=== PATIENT | male | born 1960 | race Caucasian/White ===

== ENCOUNTER 2016-09-14 14:56 | Inpatient (IN) | payer MEDICARE, MEDICAID ==
[2016-09-14] MEDS ORDERED: LORazepam INJ* 2 MG/ML 1 ML VIAL IV ONE (19:08)
[2016-09-14] MEDS ORDERED: Magnesium Sulfate 1 GM IV* 1 GM/100 ML BAG IV ONE (19:10)
[2016-09-14] MEDS ORDERED: Thiamine IV* 100 MG, Folic Acid IV* 1 MG, Multiple Vitamin IV ADULT* 10 ML in NS 0.9% 1... IV ONE (19:10)
[2016-09-14] MEDS ORDERED: Folic Acid IV* 50 MG/10 ML VIAL ONE (19:21)
[2016-09-14] MEDS ORDERED: Thiamine IV* 100 MG/ML 2 ML VIAL ONE (19:21)
[2016-09-14] MEDS ORDERED: NS 0.9% 1000 ML* 1,000 ML ONE (19:21)
[2016-09-14 19:30] LABS: Hematocrit 45 % (42-52); Hemoglobin 15.3 g/dl (14.0-18.0); Mean Corpuscular HGB Conc 34 g/dl (31-36); Mean Corpuscular Hemoglobin 32 pg (27-31); Mean Corpuscular Volume 95 fL (80-94); Mean Platelet Volume 8 um3 (7.4-10.4); Red Blood Count 4.76 10^6/ul (4.0-5.4); Red Cell Distribution Width 15 % (10.5-15); White Blood Count 13.8 10^3/ul (3.5-10.8)
[2016-09-14 19:54] LABS: ALT 25 U/L (7-52); AST 44 U/L (13-39); Acetaminophen < 15 mcg/mL; Albumin 4.5 g/dL (3.2-5.2); Alcohol 120 mg/dL (<10); Alkaline Phosphatase 98 U/L (34-104); Anion Gap 20 mmol/L (2-11); BUN/Creatinine Ratio 14.1 (8-20); Blood Urea Nitrogen 12 mg/dL (6-24); CO2 Carbon Dioxide 17 mmol/L (22-32); Calcium 10.4 mg/dL (8.6-10.3); Chloride 91 mmol/L (101-111); Creatine Kinase 171 U/L (10-223); EGFR African American 120.4 (>60); EGFR Non-African American 93.6 (>60); Glucose 130 mg/dL (70-100); Potassium 3.6 mmol/L (3.5-5.0); Salicylate < 2.50 mg/dL (<30); Sodium 128 mmol/L (133-145); Total Protein 8.5 g/dL (6.4-8.9)
[2016-09-14] MEDS ORDERED: Albuterol 2.5 MG/3 ML NEB.SOL* (0.083%) INH PRN (20:15)
[2016-09-14] MEDS ORDERED: Melatonin (NF) 3 MG TAB PO PRN (20:15)
[2016-09-14] MEDS ORDERED: Ondansetron INJ* 2 MG/ML VIAL IV PRN (20:16)
[2016-09-14] MEDS ORDERED: Acetaminophen TAB* 325 MG PO PRN (20:17)
[2016-09-14] MEDS ORDERED: Thiamine IV* 100 MG/ML 2 ML VIAL IM ONE (20:17)
--- NOTE | 2016-09-14 20:36 | HP ---
H&P (Free Text) History and Physical: PCP: NANNETTE Mart MD Date/Time of Evaluation: 09/14/20161999 CC: alcohol withdrawal HPI: Mr Epps is a 55YO male HX alcoholism who presents reporting visual hallucinations, tremors, and malaise after decreasing his alcohol consumption over the last 24hours. He relates episodic relapses characterized by 2-3 months of sobriety followed by relapsing marijuana use and when he runs out of marijuana he starts drinking. He has been consuming ~1 pint of vodka daily for the past 2 months. He denies HX withdrawal seizures, but has had hallucinations and tremors previously. No chest pain, SOB, change in bowel/bladder or other issues. PMedHx polysubstance abuse alcoholism Ambulatory Orders Thiamine TAB* [Vitamin B-1 TAB 100 MG*] 100 mg PO DAILY #100 tab 03/31/16 chlordiazePOXIDE CAP* [Librium CAP*] 25 mg PO BID #3 cap MDD 2 03/31/16 Allergies Penicillins Allergy (Intermediate, Verified 02/29/16 11:32) Rash SocHx: mild episodic tobacco use, 1 pint vodka daily, daily marijuana, denies other recreational drugs, denies HX injectable drugs; , lives alone; currently unemployed; full code status FamHx: Father: alcoholism ROS: as above, otherwise reviewed and all were negative Constitutional: NAD, normally developed, well-nourished white male vitals: Vital Signs Temp 36.8 C 09/14/16 21:24 Pulse 96 09/14/16 21:24 Resp 18 09/14/16 22:32 BP 149/67 09/14/16 21:24 Pulse Ox 98 09/14/16 21:24 Intake & Output 09/13/16 09/14/16 09/14/16 23:59 11:59 23:59 Intake Total 600 Balance 600 Weight 81.647 kg Intake: IV Fluids 600 HEENM: atraumatic; sclera/conjunctiva: non-icteric/clear; hearing: clinically intact; oropharynx: clear, mucosa moist Neck: soft tissue: non-tender; thyroid: normal Pulmonary: clear to auscultation bilaterally, good aeration, no accessory muscle use CV: RR/RR, normal S1S2, no carotid bruit, no jugular venous distention, 2+ B DP/ PT, no edema Abdominal: soft, non-distended, non-tender, no rebound/guarding/rigidity, normoactive bowel sounds, no hepatosplenomegaly or masses, no costovertebral angle tenderness Musculoskeletal: general: grossly intact; gait: stable Integumental: normal appearance and texture of exposed skin, purple nail armenian on hands/feet Psychiatric orientation: AA&O to PPS affect: calm mood: pleasant eye contact: good content: reliable responses: timely insight: fair to good Testing: Lab Results 09/14/16 09/14/16 Range/Units 17:45 17:45 WBC 13.8 H (3.5-10.8) 10^3/ul RBC 4.76 (4.0-5.4) 10^6/ul Hgb 15.3 (14.0-18.0) g/dl Hct 45 (42-52) % MCV 95 H (80-94) fL MCH 32 H (27-31) pg MCHC 34 (31-36) g/dl RDW 15 (10.5-15) % Plt Count 264 (150-450) 10^3/ul MPV 8 (7.4-10.4) um3 Neut % (Auto) 61.9 (38-83) % Lymph % (Auto) 28.2 (25-47) % [place] % (Auto) 9.2 H (1-9) % Eos % (Auto) 0.2 (0-6) % Baso % (Auto) 0.5 (0-2) % Absolute Neuts (auto) 8.5 H (1.5-7.7) 10^3/ul Absolute Lymphs (auto) 3.9 (1.0-4.8) 10^3/ul Absolute Monos (auto) 1.3 H (0-0.8) 10^3/ul Absolute Eos (auto) 0 (0-0.6) 10^3/ul Absolute Basos (auto) 0.1 (0-0.2) 10^3/ul Absolute Nucleated RBC 0.01 10^3/ul Nucleated RBC % 0.1 Sodium 128 L (133-145) mmol/L Potassium 3.6 (3.5-5.0) mmol/L Chloride 91 L (101-111) mmol/L Carbon Dioxide 17 L (22-32) mmol/L Anion Gap 20 H (2-11) mmol/L BUN 12 (6-24) mg/dL Creatinine 0.85 (0.67-1.17) mg/dL Est GFR ( Amer) 120.4 (>60) Est GFR (Non-Af Amer) 93.6 (>60) BUN/Creatinine Ratio 14.1 (8-20) Glucose 130 H (70-100) mg/dL Calcium 10.4 H (8.6-10.3) mg/dL Total Bilirubin 1.20 H (0.2-1.0) mg/dL AST 44 H (13-39) U/L ALT 25 (7-52) U/L Alkaline Phosphatase 98 (34-104) U/L Total Creatine Kinase 171 (10-223) U/L Total Protein 8.5 (6.4-8.9) g/dL Albumin 4.5 (3.2-5.2) g/dL Globulin 4.0 (2-4) g/dL Albumin/Globulin Ratio 1.1 (1-3) TSH 1.00 (0.34-5.60) mcIU/mL Salicylates < 2.50 (<30) mg/dL Acetaminophen < 15 mcg/mL Serum Alcohol 120 H (<10) mg/dL Impression: 55M presenting with alcohol withdrawal DIAGNOSIS & PLAN Primary alcohol withdrawal : [facility] protocol : social work case manager consult Admission Rational: inpatient for alcohol withdrawal not anticipated to be adequately resolved w/i 48h to allow for discharge DVTp: MILAG[place] Code Status: full
[2016-09-14] MEDS: Docusate CAP* 100 MG PO SCH (22:31)
[2016-09-14] MEDS: LORazepam TAB(*) 1 MG PO SCH (22:32)
[2016-09-14] MEDS: NS 0.9% 1000 ML* 1,000 ML IV SCH (22:32)
--- NOTE | 2016-09-14 22:44 | ED ---
Nicole Lafleur Alok, scribed for Nabeel Singh MD on 09/14/16 at 1937 . Substance Abuse/Use - HPI Summary HPI Summary: 55M presents to the ED for alcohol detoxification. Pt reports drinking a quart of vodka per day until 2 or 3 months ago. Pt reports heavy shakes, diaphoresis, abd pain, and slight hallucinations. Pt has been drinking mouthwash to alleviate symptoms last had 2 days ago. Pt has not eaten for the last several days. Pt smokes marijuana. Pt states he smoked tobacco only while he was drinking ETOH. - History Of Current Complaint Chief Complaint: EDDetoxRequest Stated Complaint: ETOH WITHDRAWL,DISORIENTED Time Seen by Provider: 09/14/16 17:22 Hx Obtained From: Patient Severity Initially: Moderate Severity Currently: Moderate Character: Other - ETOH withdrawl Associated Signs And Symptoms: Other: - body tremors, diaphoresis, abd pain, slight hallucinations - Allergies/Home Medications Allergies/Adverse Reactions: Allergies Allergy/AdvReac Type Severity Reaction Status Date / Time Penicillins Allergy Intermediate Rash Verified 02/29/16 11:32 PMH/Surg Hx/FS Hx/Imm Hx Endocrine/Hematology History: Denies: Hx Anticoagulant Therapy GI History: Reports: Other GI Disorders - Lower inguinal hernia Musculoskeletal History: Reports: Hx Back Problems - ruptured disc Denies: Hx Rheumatoid Arthritis, Hx Osteoporosis Sensory History: Reports: Hx Contacts or Glasses Opthamlomology History: Reports: Hx Contacts or Glasses Neurological History: Reports: Hx Migraine, Hx Spinal Cord Injury, Other Neuro Impairments/Disorders - Sciatica Psychiatric History: Reports: Hx Anxiety, Hx Depression, Hx Inpatient Treatment - [facility], Hx [facility], Hx of Violent Episodes Against Others , Hx Substance Abuse - alcoholism Denies: Hx Attention Deficit Hyperactivity Disorder, Hx Eating Disorder, Hx Panic Disorder, Hx Post Traumatic Stress Disorder, Hx Schizophrenia, Hx Bipolar Disorder, Hx Suicide Attempt, Other Psychiatric Issues/Disorders - Surgical History Surgery Procedure, Year, and Place: Tonsillectomy, dental Hx Anesthesia Reactions: No - Immunization History Date of Tetanus Vaccine: Unk Date of Influenza Vaccine: None Infectious Disease History: Denies: History Other Infectious Disease, Traveled Outside the [place] in Last 30 Days - Family History Known Family History: Negative: Cardiac Disease, Hypertension, Diabetes - Social History Occupation: Disabled Alcohol Use: Daily Alcohol Amount: Quart of Vodka/day Hx Substance Use: Yes Substance Use Type: Reports: Marijuana Substance Use Comment - Amount & Last Used: Morning of 03/29 few gulps of isopropyl alcohol Hx Tobacco Use: Yes Smoking Status (MU): Former Smoker Type: Cigarettes Have You Smoked in the Last Year: Yes Review of Systems Positive: Skin Diaphoresis. Negative: Fever Positive: Abdominal Pain Positive: Other - body tremors Neurological: Other - slight hallucinations All Other Systems Reviewed And Are Negative: Yes Physical Exam Triage Information Reviewed: Yes Vital Signs On Initial Exam: Initial Vitals Temp Pulse Resp BP Pulse Ox 99.8 F 111 18 158/97 97 09/14/16 15:07 09/14/16 15:07 09/14/16 15:07 09/14/16 15:07 09/14/16 15:07 Vital Signs Reviewed: Yes Appearance: Positive: Well-Appearing - Tremulous, No Pain Distress Skin: Positive: Warm, Skin Color Reflects Adequate Perfusion, Dry Head/Face: Positive: Normal Head/Face Inspection Eyes: Positive: Normal ENT: Positive: Normal ENT inspection Neck: Positive: Supple, Nontender Respiratory/Lung Sounds: Positive: Clear to Auscultation, Breath Sounds Present Cardiovascular: Positive: Tachycardia Abdomen Description: Positive: Nontender, Soft Bowel Sounds: Positive: Present Musculoskeletal: Positive: Normal Neurological: Positive: Normal Psychiatric: Positive: Normal, Affect/Mood Appropriate - [place] Coma Scale Coma Scale Total: 15 Diagnostics - Vital Signs Vital Signs Temp Pulse Resp BP Pulse Ox 09/14/16 17:05 98.3 F 112 20 150/94 96 09/14/16 16:15 98.3 F 114 20 156/89 98 09/14/16 15:07 99.8 F 111 18 158/97 97 - Laboratory Lab Results: Lab Results 09/14/16 Range/Units 17:45 WBC 13.8 H (3.5-10.8) 10^3/ul RBC 4.76 (4.0-5.4) 10^6/ul Hgb 15.3 (14.0-18.0) g/dl Hct 45 (42-52) % MCV 95 H (80-94) fL MCH 32 H (27-31) pg MCHC 34 (31-36) g/dl RDW 15 (10.5-15) % Plt Count 264 (150-450) 10^3/ul MPV 8 (7.4-10.4) um3 Neut % (Auto) 61.9 (38-83) % Lymph % (Auto) 28.2 (25-47) % [place] % (Auto) 9.2 H (1-9) % Eos % (Auto) 0.2 (0-6) % Baso % (Auto) 0.5 (0-2) % Absolute Neuts (auto) 8.5 H (1.5-7.7) 10^3/ul Absolute Lymphs (auto) 3.9 (1.0-4.8) 10^3/ul Absolute Monos (auto) 1.3 H (0-0.8) 10^3/ul Absolute Eos (auto) 0 (0-0.6) 10^3/ul Absolute Basos (auto) 0.1 (0-0.2) 10^3/ul Absolute Nucleated RBC 0.01 10^3/ul Nucleated RBC % 0.1 Result Diagrams: 09/14/16 17:45 09/14/16 17:45 Lab Statement: Any lab studies that have been ordered have been reviewed, and results considered in the medical decision making process. Course/Dx - Diagnoses Provider Diagnoses: Alcohol withdrawal - Physician Notifications Discussed Care Of Patient With: Dr. Jones (Hospitalist) @ 1954 - will examine pt. Dr. Jones (Hospitalist) @ 120 - will admit pt Discharge - Discharge Plan Condition: Stable Disposition: ADMITTED TO [facility] documentation as recorded by the Nicole linn Alok accurately reflects the service I personally performed and the decisions made by , Nabeel Singh MD.
[2016-09-15] MEDS: Omeprazole CAP* 20 MG PO SCH (05:23)
[2016-09-15] MEDS: LORazepam TAB(*) 1 MG PO SCH ×3 (05:23→17:19)
[2016-09-15 07:07] LABS: Hematocrit 40 % (42-52); Hemoglobin 13.6 g/dl (14.0-18.0); Mean Corpuscular HGB Conc 34 g/dl (31-36); Mean Corpuscular Hemoglobin 32 pg (27-31); Mean Corpuscular Volume 96 fL (80-94); Mean Platelet Volume 8 um3 (7.4-10.4); Red Blood Count 4.22 10^6/ul (4.0-5.4); Red Cell Distribution Width 15 % (10.5-15)
[2016-09-15 07:27] LABS: BUN/Creatinine Ratio 15.5 (8-20); Calcium 8.6 mg/dL (8.6-10.3); EGFR African American 148.1 (>60); EGFR Non-African American 115.2 (>60); Potassium 3.6 mmol/L (3.5-5.0)
[2016-09-15] MEDS: NS 0.9% 1000 ML* 1,000 ML IV SCH (07:45)
[2016-09-15] MEDS: Docusate CAP* 100 MG PO SCH ×2 (09:12→20:22)
[2016-09-15] MEDS: Thiamine TAB* 100 MG TAB PO SCH (09:12)
[2016-09-15] MEDS: Folic Acid TAB* 1 MG PO SCH (09:12)
[2016-09-15] MEDS: Multivitamins/Minerals TAB PO SCH (09:12)
[2016-09-15] MEDS ORDERED: Ascorbic Acid TAB* 500 MG PO ONE (11:15)
[2016-09-15] MEDS ORDERED: Cholecalciferol TAB* 400 UNIT PO SCH (12:30)
[2016-09-15] MEDS: LORazepam INJ* 2 MG/ML 1 ML VIAL IV SCH ×2 (14:05→20:21)
[2016-09-15 15:07] LABS: Benzodiazepine Urine Screen None Detected (None Detect)
--- NOTE | 2016-09-15 18:10 | PN ---
Subjective Date of Service: 09/15/16 Interval History: . denies new c/o feels tremulous - -unsteady on feet Family History: Unchanged from Admission Social History: Unchanged from Admission Past Medical History: Unchanged from Admission Objective Active Medications: . Acetaminophen (Tylenol Tab*) 650 mg PO Q4H PRN PRN Reason: PAIN Albuterol (Ventolin 2.5 Mg/3 Ml Neb.Kourtney*) 2.5 mg INH Q2H PRN PRN Reason: SOB/WHEEZING Ascorbic Acid (Vitamin C Tab*) 500 mg PO DAILY [facility] Cholecalciferol (Vitamin D Tab*) 400 unit PO DAILY [facility] Docusate Sodium (Colace Cap*) 200 mg PO BID [facility] Last Admin: 09/15/16 09:12 Dose: Not Given Folic Acid (Folvite Tab*) 1 mg PO DAILY [facility] Last Admin: 09/15/16 09:12 Dose: 1 mg Sodium Chloride (Ns 0.9% 1000 Ml*) 1,000 mls @ 125 mls/hr IV PER RATE [facility] Last Admin: 09/15/16 07:45 Dose: 125 mls/hr Lorazepam (Ativan Inj*) 0 mg IV .PER WAM SCORE [facility] PRN Reason: Protocol Last Admin: 09/15/16 14:05 Dose: 2 mg Lorazepam (Ativan Tab(*)) 2 mg PO Q12H [facility] PRN Reason: Taper Stop: 09/17/16 20:59 Last Admin: 09/15/16 17:19 Dose: 2 mg Melatonin (Melatonin (Nf)) 3 mg PO BEDTIME PRN; Protocol PRN Reason: Sleep Multivitamins/Minerals (Theragran/Minerals Tab*) 1 tab PO DAILY [facility] Last Admin: 09/15/16 09:12 Dose: 1 tab Omeprazole (Prilosec Cap*) 20 mg PO DAILY@0600 [facility] Last Admin: 09/15/16 05:23 Dose: 20 mg Ondansetron HCl (Zofran Inj*) 4 mg IV Q6H PRN PRN Reason: NAUSEA Thiamine HCl (Vitamin B-1 Tab*) 100 mg PO DAILY [facility] Last Admin: 09/15/16 09:12 Dose: 100 mg . Vital Signs 09/14/16 09/14/16 09/14/16 20:11 21:24 22:32 Temperature 99.5 F 98.3 F Pulse Rate 93 96 Respiratory 16 18 18 Rate Blood Pressure 132/61 149/67 (mmHg) O2 Sat by Pulse 96 98 Oximetry 09/15/16 09/15/16 09/15/16 00:09 00:32 02:06 Temperature 97.9 F Pulse Rate 96 85 Respiratory 18 18 16 Rate Blood Pressure 128/67 129/76 (mmHg) O2 Sat by Pulse 95 98 Oximetry Oxygen Devices in Use Now: None Appearance: + alcohol withdrawal - characteristic tremors and diaphoresis and confusion. Eyes: No Scleral Icterus Ears/Nose/Mouth/Throat: NL Teeth, Lips, Gums Neck: NL Appearance and Movements; NL JVP Respiratory: Symmetrical Chest Expansion and Respiratory Effort Cardiovascular: NL Sounds; No Murmurs; No JVD Abdominal: NL Sounds; No Tenderness; No Distention Lymphatic: No Cervical Adenopathy Extremities: No Edema, - - + painted fingernails Skin: No Rash or Ulcers Neurological: Alert and Oriented x 3 Lines/Tubes/Other Access: Clean, Dry and Intact Peripheral IV Nutrition: Taking PO's Result Diagrams: 09/16/16 08:34 09/16/16 08:34 Additional Lab and Data: . Assess/Plan/Problems-Billing . Assessment: 55 yo man with alcoholism p/w visual hallucinations, tremors, and malaise after decreasing his alcohol consumption over 24 hours -- consistent with acute alcohol withdrawal. He has been consuming ~1 pint of vodka daily for the past 2 months. . - Patient Problems (1) Alcohol withdrawal Current Visit: No Status: Acute Priority: High Code(s): F10.239 - ALCOHOL DEPENDENCE WITH WITHDRAWAL, UNSPECIFIED Comment: - [facility] protocol with ativan taper ongoing - Thiamine, MVI, folic acid, Vitamin C, PPI - IVF - Admit to medicine; inpatient status - SW consult--facility rehab would be optimal.
[2016-09-16] MEDS: NS 0.9% 1000 ML* 1,000 ML IV SCH ×2 (01:40→09:50)
[2016-09-16] MEDS: LORazepam INJ* 2 MG/ML 1 ML VIAL IV SCH ×3 (04:14→20:13)
[2016-09-16] MEDS: Omeprazole CAP* 20 MG PO SCH (05:49)
[2016-09-16] MEDS: LORazepam TAB(*) 1 MG PO SCH ×2 (05:49→17:27)
[2016-09-16] MEDS: Thiamine TAB* 100 MG TAB PO SCH (08:40)
[2016-09-16] MEDS: Multivitamins/Minerals TAB PO SCH (08:40)
[2016-09-16] MEDS: Folic Acid TAB* 1 MG PO SCH (08:40)
[2016-09-16] MEDS: Ascorbic Acid TAB* 500 MG PO SCH (08:40)
[2016-09-16] MEDS: Cholecalciferol TAB* 400 UNIT PO SCH (08:40)
[2016-09-16] MEDS: Docusate CAP* 100 MG PO SCH ×2 (08:41→20:14)
[2016-09-16 08:44] LABS: Hematocrit 40 % (42-52); Hemoglobin 13.8 g/dl (14.0-18.0); Mean Corpuscular HGB Conc 34 g/dl (31-36); Mean Corpuscular Hemoglobin 32 pg (27-31); Mean Corpuscular Volume 95 fL (80-94); Mean Platelet Volume 8 um3 (7.4-10.4); Red Blood Count 4.26 10^6/ul (4.0-5.4); Red Cell Distribution Width 15 % (10.5-15); White Blood Count 8.9 10^3/ul (3.5-10.8)
[2016-09-16 08:55] LABS: BUN/Creatinine Ratio 14.7 (8-20); Calcium 8.8 mg/dL (8.6-10.3); EGFR African American 155.7 (>60); EGFR Non-African American 121.1 (>60); Potassium 3.6 mmol/L (3.5-5.0)
[2016-09-16] MEDS ORDERED: Aspirin TAB* 325 MG PO PRN (14:27)
--- NOTE | 2016-09-16 14:34 | PN ---
Subjective Date of Service: 09/16/16 Interval History: . Interviewed and examined patient at bedside Less withdrawal than yesterday. intermittent headache still scoring on WA protocol--getting ativan every other time, roughly. eating better still very unsteady on feet. . Family History: Unchanged from Admission Social History: Unchanged from Admission Past Medical History: Unchanged from Admission Objective Active Medications: . Acetaminophen (Tylenol Tab*) 650 mg PO Q4H PRN PRN Reason: PAIN Albuterol (Ventolin 2.5 Mg/3 Ml Neb.Kourtney*) 2.5 mg INH Q2H PRN PRN Reason: SOB/WHEEZING Ascorbic Acid (Vitamin C Tab*) 500 mg PO DAILY [facility] Last Admin: 09/16/16 08:40 Dose: 500 mg Aspirin (Aspirin Tab*) 325 mg PO Q6HR PRN PRN Reason: headache Cholecalciferol (Vitamin D Tab*) 400 unit PO DAILY [facility] Last Admin: 09/16/16 08:40 Dose: 400 unit Docusate Sodium (Colace Cap*) 200 mg PO BID [facility] Last Admin: 09/16/16 08:41 Dose: Not Given Folic Acid (Folvite Tab*) 1 mg PO DAILY [facility] Last Admin: 09/16/16 08:40 Dose: 1 mg Sodium Chloride (Ns 0.9% 1000 Ml*) 1,000 mls @ 125 mls/hr IV PER RATE [facility] Last Admin: 09/16/16 09:50 Dose: 125 mls/hr Lorazepam (Ativan Inj*) 0 mg IV .PER WAM SCORE [facility] PRN Reason: Protocol Last Admin: 09/16/16 08:40 Dose: 2 mg Lorazepam (Ativan Tab(*)) 2 mg PO Q12H [facility] PRN Reason: Taper Stop: 09/17/16 20:59 Last Admin: 09/16/16 05:49 Dose: 2 mg Melatonin (Melatonin (Nf)) 3 mg PO BEDTIME PRN; Protocol PRN Reason: Sleep Multivitamins/Minerals (Theragran/Minerals Tab*) 1 tab PO DAILY [facility] Last Admin: 09/16/16 08:40 Dose: 1 tab Naproxen (Naprosyn Tab*) 500 mg PO Q12H PRN PRN Reason: HEADACHE Omeprazole (Prilosec Cap*) 20 mg PO DAILY@0600 [facility] Last Admin: 09/16/16 05:49 Dose: 20 mg Ondansetron HCl (Zofran Inj*) 4 mg IV Q6H PRN PRN Reason: NAUSEA Thiamine HCl (Vitamin B-1 Tab*) 100 mg PO DAILY [facility] Last Admin: 09/16/16 08:40 Dose: 100 mg . Vital Signs 09/15/16 09/15/16 09/15/16 15:05 16:09 17:19 Temperature 97.8 F Pulse Rate 84 Respiratory 18 16 18 Rate Blood Pressure 130/72 (mmHg) O2 Sat by Pulse 98 Oximetry 09/15/16 09/15/16 09/15/16 18:14 19:19 20:00 Temperature 98.5 F Pulse Rate 85 Respiratory 18 18 16 Rate Blood Pressure 130/77 (mmHg) O2 Sat by Pulse 96 Oximetry Oxygen Devices in Use Now: None Appearance: NAD Eyes: No Scleral Icterus Ears/Nose/Mouth/Throat: Clear Oropharnyx Neck: Trachea Midline Respiratory: Symmetrical Chest Expansion and Respiratory Effort Cardiovascular: NL Sounds; No Murmurs; No JVD Abdominal: NL Sounds; No Tenderness; No Distention Lymphatic: No Cervical Adenopathy Extremities: No Edema Skin: No Rash or Ulcers Neurological: Alert and Oriented x 3, - - + s/sx c/w withdrawal from etoh. tremors. diaphoresis. Lines/Tubes/Other Access: Clean, Dry and Intact Peripheral IV Nutrition: Taking PO's Result Diagrams: 09/16/16 08:34 09/16/16 08:34 Additional Lab and Data: . Assess/Plan/Problems-Billing . Assessment: 55 yo man with alcoholism p/w visual hallucinations, tremors, and malaise after decreasing his alcohol consumption over 24 hours -- consistent with acute alcohol withdrawal. He has been consuming ~1 pint of vodka daily for the past 2 months. Current Medications: - Tylenol 650 mg PO Q4H PRN PAIN - Ascorbic Acid (Vitamin C Tab*) 500 mg PO DAILY - Aspirin (Aspirin Tab) 325 mg PO Q6HR PRN headache\ - Cholecalciferol (Vitamin D Tab) 400 unit PO DAILY - Docusate Sodium (Colace Cap) 200 mg PO BID - Folic Acid (Folvite Tab) 1 mg PO DAILY - NS @ 125 mls/hr IV - Lorazepam (Ativan Inj) PER WAM SCORE - Lorazepam (Ativan Tab) 2 mg PO Q12H [facility] PRN Reason: Taper - Melatonin (Melatonin) 3 mg PO BEDTIME PRN Insomnia - Multivitamins/Minerals (Theragran/Minerals Tab) 1 tab PO DAILY - Naproxen (Naprosyn Tab) 500 mg PO Q12H PRN HEADACHE - Omeprazole (Prilosec Cap) 20 mg PO DAILY - Ondansetron HCl (Zofran Inj) 4 mg IV Q6H PRN NAUSEA - Thiamine HCl (Vitamin B-1 Tab*) 100 mg PO DAILY. - Patient Problems (1) Alcohol withdrawal Current Visit: No Status: Acute Priority: High Code(s): F10.239 - ALCOHOL DEPENDENCE WITH WITHDRAWAL, UNSPECIFIED Comment: - [facility] protocol with ativan taper ongoing - Thiamine, MVI, folic acid, Vitamin C, PPI - IVF - Admit to medicine; inpatient status - SW consult--facility rehab would be optimal.
[2016-09-17] MEDS: NS 0.9% 1000 ML* 1,000 ML IV SCH ×2 (04:22→16:29)
[2016-09-17] MEDS: LORazepam INJ* 2 MG/ML 1 ML VIAL IV SCH (04:30)
[2016-09-17] MEDS: Omeprazole CAP* 20 MG PO SCH (04:35)
[2016-09-17] MEDS: LORazepam TAB(*) 1 MG PO SCH ×2 (05:23→18:00)
[2016-09-17] MEDS: Folic Acid TAB* 1 MG PO SCH (08:56)
[2016-09-17] MEDS: Multivitamins/Minerals TAB PO SCH (08:57)
[2016-09-17] MEDS: Thiamine TAB* 100 MG TAB PO SCH (08:57)
[2016-09-17] MEDS: Ascorbic Acid TAB* 500 MG PO SCH (08:57)
[2016-09-17] MEDS: Cholecalciferol TAB* 400 UNIT PO SCH (08:57)
[2016-09-17] MEDS: Docusate CAP* 100 MG PO SCH ×2 (08:58→19:04)
[2016-09-17] MEDS ORDERED: LORazepam TAB(*) 1 MG PO ONE (13:58)
--- NOTE | 2016-09-17 17:00 | PN ---
Subjective Date of Service: 09/17/16 Interval History: . denies pain no evidence for significant withdrawal; did get extra dose of ativan for agitation today awaiting dc on Sunday to inpatient rehab. . Family History: Unchanged from Admission Social History: Unchanged from Admission Past Medical History: Unchanged from Admission Objective Active Medications: . Acetaminophen (Tylenol Tab*) 650 mg PO Q4H PRN PRN Reason: PAIN Albuterol (Ventolin 2.5 Mg/3 Ml Neb.Kourtney*) 2.5 mg INH Q2H PRN PRN Reason: SOB/WHEEZING Ascorbic Acid (Vitamin C Tab*) 500 mg PO DAILY [facility] Last Admin: 09/17/16 08:57 Dose: 500 mg Aspirin (Aspirin Tab*) 325 mg PO Q6HR PRN PRN Reason: headache Cholecalciferol (Vitamin D Tab*) 400 unit PO DAILY [facility] Last Admin: 09/17/16 08:57 Dose: 400 unit Docusate Sodium (Colace Cap*) 200 mg PO BID [facility] Last Admin: 09/17/16 08:58 Dose: Not Given Folic Acid (Folvite Tab*) 1 mg PO DAILY [facility] Last Admin: 09/17/16 08:56 Dose: 1 mg Sodium Chloride (Ns 0.9% 1000 Ml*) 1,000 mls @ 125 mls/hr IV PER RATE [facility] Last Admin: 09/17/16 16:29 Dose: 125 mls/hr Lorazepam (Ativan Inj*) 0 mg IV .PER WAM SCORE [facility] PRN Reason: Protocol Last Admin: 09/17/16 04:30 Dose: 2 mg Lorazepam (Ativan Tab(*)) 1 mg PO Q12H [facility] PRN Reason: Taper Stop: 09/17/16 20:59 Last Admin: 09/17/16 05:23 Dose: 1 mg Melatonin (Melatonin (Nf)) 3 mg PO BEDTIME PRN; Protocol PRN Reason: Sleep Multivitamins/Minerals (Theragran/Minerals Tab*) 1 tab PO DAILY [facility] Last Admin: 09/17/16 08:57 Dose: 1 tab Naproxen (Naprosyn Tab*) 500 mg PO Q12H PRN PRN Reason: HEADACHE Omeprazole (Prilosec Cap*) 20 mg PO DAILY@0600 [facility] Last Admin: 09/17/16 04:35 Dose: Not Given Ondansetron HCl (Zofran Inj*) 4 mg IV Q6H PRN PRN Reason: NAUSEA Thiamine HCl (Vitamin B-1 Tab*) 100 mg PO DAILY [facility] Last Admin: 09/17/16 08:57 Dose: 100 mg . Vital Signs 09/16/16 09/16/16 09/16/16 17:27 18:37 19:27 Temperature Pulse Rate 92 Respiratory 18 18 Rate Blood Pressure 133/76 (mmHg) O2 Sat by Pulse 94 Oximetry 09/16/16 09/16/16 09/16/16 20:00 20:10 20:13 Temperature Pulse Rate 85 Respiratory 18 18 18 Rate Blood Pressure 137/80 (mmHg) O2 Sat by Pulse 96 Oximetry Oxygen Devices in Use Now: None Appearance: NAD at this time Eyes: No Scleral Icterus, PERRLA Ears/Nose/Mouth/Throat: NL Teeth, Lips, Gums, Clear Oropharnyx Neck: NL Appearance and Movements; NL JVP Respiratory: Symmetrical Chest Expansion and Respiratory Effort Cardiovascular: NL Sounds; No Murmurs; No JVD Lymphatic: No Cervical Adenopathy Extremities: No Edema, No Clubbing, Cyanosis Skin: No Rash or Ulcers, No Nodules or Sclerosis Neurological: Alert and Oriented x 3 Lines/Tubes/Other Access: Clean, Dry and Intact Peripheral IV Nutrition: Taking PO's Result Diagrams: 09/16/16 08:34 09/16/16 08:34 Additional Lab and Data: . Assess/Plan/Problems-Billing . Assessment: 55 yo man with alcoholism p/w visual hallucinations, tremors, and malaise after decreasing his alcohol consumption over 24 hours -- consistent with acute alcohol withdrawal. He has been consuming ~1 pint of vodka daily for the past 2 months. Current Medications: - Tylenol 650 mg PO Q4H PRN PAIN - Ascorbic Acid (Vitamin C Tab*) 500 mg PO DAILY - Aspirin (Aspirin Tab) 325 mg PO Q6HR PRN headache\ - Cholecalciferol (Vitamin D Tab) 400 unit PO DAILY - Docusate Sodium (Colace Cap) 200 mg PO BID - Folic Acid (Folvite Tab) 1 mg PO DAILY - NS @ 125 mls/hr IV - Lorazepam (Ativan Inj) PER WAM SCORE - Lorazepam (Ativan Tab) 2 mg PO Q12H [facility] PRN Reason: Taper - Melatonin (Melatonin) 3 mg PO BEDTIME PRN Insomnia - Multivitamins/Minerals (Theragran/Minerals Tab) 1 tab PO DAILY - Naproxen (Naprosyn Tab) 500 mg PO Q12H PRN HEADACHE - Omeprazole (Prilosec Cap) 20 mg PO DAILY - Ondansetron HCl (Zofran Inj) 4 mg IV Q6H PRN NAUSEA - Thiamine HCl (Vitamin B-1 Tab*) 100 mg PO DAILY. - Patient Problems (1) Alcohol withdrawal Current Visit: No Status: Acute Priority: High Code(s): F10.239 - ALCOHOL DEPENDENCE WITH WITHDRAWAL, UNSPECIFIED Comment: - [facility] protocol with ativan taper ongoing - Thiamine, MVI, folic acid, Vitamin C, PPI - IVF - Admitted to medicine; inpatient status - SW consult--facility rehab would be optimal; plan for facility dc on September 19.
[2016-09-17] MEDS: Naproxen TAB* 250 MG PO PRN (18:28)
[2016-09-18] MEDS: NS 0.9% 1000 ML* 1,000 ML IV SCH ×2 (02:14→10:59)
[2016-09-18] MEDS: Omeprazole CAP* 20 MG PO SCH (04:29)
[2016-09-18] MEDS: Cholecalciferol TAB* 400 UNIT PO SCH (07:36)
[2016-09-18] MEDS: Ascorbic Acid TAB* 500 MG PO SCH (07:36)
[2016-09-18] MEDS: Multivitamins/Minerals TAB PO SCH (07:36)
[2016-09-18] MEDS: Folic Acid TAB* 1 MG PO SCH (07:36)
[2016-09-18] MEDS: Thiamine TAB* 100 MG TAB PO SCH (07:36)
[2016-09-18] MEDS: Docusate CAP* 100 MG PO SCH ×2 (08:09→20:31)
--- NOTE | 2016-09-18 16:38 | PN ---
Hospitalist Progress Note . HOSPITALIST DISCHARGE NOTE: See dc instructions and summary by me. Patient stable for dc dc instructions reviewed with the patient at the bedside. DC patient home tomorrow AM.
[2016-09-18] MEDS: Naproxen TAB* 250 MG PO PRN (20:30)
[2016-09-19] MEDS: Omeprazole CAP* 20 MG PO SCH (06:32)
[2016-09-19] MEDS: Thiamine TAB* 100 MG TAB PO SCH (07:09)
[2016-09-19] MEDS: Multivitamins/Minerals TAB PO SCH (07:09)
[2016-09-19] MEDS: Ascorbic Acid TAB* 500 MG PO SCH (07:09)
[2016-09-19] MEDS: Cholecalciferol TAB* 400 UNIT PO SCH (07:09)
[2016-09-19] MEDS: Folic Acid TAB* 1 MG PO SCH (07:09)
[2016-09-19] MEDS: Docusate CAP* 100 MG PO SCH (07:09)
[2016-09-19] MEDS: Naproxen TAB* 250 MG PO PRN (07:14)
[2016-09-19 07:40] VITALS: BP 143/79
--- NOTE | 2016-09-19 13:04 | DS ---
CC: Lencho Mart MD DISCHARGE SUMMARY: DATE OF ADMISSION: 09/14/16 DATE OF DISCHARGE: 09/19/16 PCP: Lencho Mart MD STATUS DURING HOSPITALIZATION: Inpatient. PRINCIPAL DISCHARGE DIAGNOSES: Alcohol withdrawal and delirium tremens with ongoing alcoholism and polysubstance abuse. DISCHARGE MEDICATION REGIMEN: 1. Vitamin D 400 units by mouth daily. 2. Folic acid 1 mg by mouth once daily. 3. Multivitamin with minerals 1 tablet by mouth once daily. 4. Naprosyn 500 mg by mouth every 12 hours as needed. 5. Omeprazole 20 mg by mouth daily. 6. Thiamine 100 mg by mouth daily. HISTORY OF PRESENT ILLNESS AND HOSPITAL COURSE: Please see the H and P by Dr. Danny Banuelos on 0 09/14/16. In brief, Mr. Epps is a 55-year-old gentleman with alcoholism who came to the hospital r eporting visual hallucinations, tremors, and malaise after decreasing his alcohol consumption over t he 24 hours prior to admission. He relates episodic relapses characterized by 2 to 3 months of sobr iety followed by relapsing with marijuana use and concomitant drinking alcohol. He has been recentl y consuming approximately a pint of vodka daily for the past 2 months. He denies history of withdraw al seizures, but has had hallucinations and tremors previously. The patient's alcohol level on admi ssion was 120, 24 hours after cessation of alcohol, demonstrating likely extremely high ongoing leve ls of alcohol. Because of ongoing withdrawal that was worsening during the admission evaluation, th e patient was fully admitted to the hospital. He received copious doses of Ativan by the withdrawal alcohol management (WAM) protocol and did well for the next several days. His urine toxicology is also positive for cannabinoids. The patient is accepted to alcohol rehabilitation and he will be sen t there on the morning of 09/19/16. As of the late afternoon of 09/18/16, he is stable with normal vital signs, generally normal labs. He is eating normally. He is ambulating without difficulty. Osmar gar is waiting at this point to go directly to alcohol/substance rehabilitation, and of course, he can come back to the emergency room if he has any worsening of symptoms including but not limited to ch est pain, lightheadedness, or other worrisome symptoms that arise. Mr. Epps was counseled about the need for abstinence and this will be further stressed at his reha bilitation stay. More details regarding this hospitalization, please see the full medical record as this is a highly summarized account of a complex hospitalization. TIME SPENT: Total time taken to discharge Mr. Epps was 40 minutes with greater than half that fred cogn spent going over the discharge instructions with the patient [id number] at the bedside. [id number]/[facility] #: [id number]
== END 2016-09-19 08:00 | disposition home or self-care (01) | DRG 897 ==
LOC: ED 14:56 → MED 20:03
PROVIDERS: ADMIT Hospitalist; ATTEND Internal Medicine
DX: F10.231 Alcohol dependence with withdrawal delirium (principal); F12.10 Cannabis abuse, uncomplicated; Y90.6 Blood alcohol level of 120-199 mg/100 ml; Z79.899 Other long term (current) drug therapy; Z88.0 Allergy status to penicillin; Z72.0 Tobacco use; Z81.1 Family history of alcohol abuse and dependence
CPT/HCPCS: 36415; 80048; 80053; 80307; 80320; 80329; 82550; 84443; 85025; 85027; 94760; A9270-GY; G0480; J2060

== ENCOUNTER 2017-04-27 10:25 | Inpatient (IN) | payer MEDICARE, MEDICAID ==
[2017-04-27] MEDS ORDERED: Acetaminophen TAB* 325 MG PO PRN (11:54)
[2017-04-27] MEDS ORDERED: Ondansetron INJ* 2 MG/ML VIAL IV PRN (11:57)
[2017-04-27 12:37] LABS: ABS Basophils 0.1 10^3/ul (0-0.2); ABS Eosinophils 0.1 10^3/ul (0-0.6); ABS Lymphocytes 3.2 10^3/ul (1.0-4.8); ABS Monocytes 1.1 10^3/ul (0-0.8); ABS Neutrophils 3.7 10^3/ul (1.5-7.7); ABS Nucleated RBC 0.01 10^3/ul; Eosinophil % 1.4 % (0-6); Hematocrit 42 % (42-52); Hemoglobin 13.9 g/dl (14.0-18.0); Lymphocyte % 38.9 % (25-47); Mean Corpuscular HGB Conc 33 g/dl (31-36); Mean Corpuscular Hemoglobin 31 pg (27-31); Mean Corpuscular Volume 95 fL (80-94); Mean Platelet Volume 8 um3 (7.4-10.4); Nucleated Red Blood Cells % 0.1; Platelet Count 245 10^3/ul (150-450); Red Blood Count 4.42 10^6/ul (4.0-5.4); Red Cell Distribution Width 16 % (10.5-15); White Blood Count 8.2 10^3/ul (3.5-10.8)
[2017-04-27] MEDS: NS 0.9% 1000 ML* 1,000 ML IV SCH (13:01)
[2017-04-27] MEDS: Thiamine TAB* 100 MG TAB PO SCH (13:01)
[2017-04-27 13:10] LABS: EGFR Non-African American 139.4 (>60)
[2017-04-27] MEDS: LORazepam TAB(*) 1 MG PO SCH (16:44)
--- NOTE | 2017-04-27 20:33 | HP ---
AMENDED REPORT NOW INCLUDES COSIGNER DESIGNATION - ESIGNED BEFORE ADJUSTMENTS CC: Dr. Mart * HOSPITAL MEDICINE HISTORY AND PHYSICAL: DATE OF ADMISSION: 04/27/17 PRIMARY CARE PHYSICIAN: Dr. Mart. ATTENDING PHYSICIAN: Dr. Jaimie Miller * (dictation provided by Mayuri Morillo NP ). CHIEF COMPLAINT: Alcohol withdrawal. HISTORY OF PRESENT ILLNESS: Mr. Epps is a 56-year-old male with no significant past medical history other than alcoholism with repeat admissions to our hospital for alcohol withdrawal symptoms, who presents today to the hospital with concern for alcohol withdrawal. Mr. Epps states that he has been drinking very heavily, at least a large bottle of vodka every day for several months. He was last here in our hospital in August of 2016, and was discharged to a 2-week rehab. After that rehab, he was sober for 30 days, but states since then, he has been drinking quite heavily. He is ready to attempt to try to stop drinking again and therefore presented to Dr. Mart's office for support and then Dr. Mart had him transitioned to here for direct admission due to concern for delirium tremens or possible seizure. The patient denies any other symptoms. He has had no chest pain. No shortness of breath. He is an intermittent smoker and does smoke marijuana. He has had no nausea, vomiting, diarrhea, or abdominal pain of significance. Here in the hospital, Mr. Epps had labs drawn, which showed mild hyponatremia with the sodium of 132, otherwise his labs are unremarkable. His magnesium is normal, his potassium is normal. He is tremulous on my examination, but denies any hallucinations and is not diaphoretic. His vital signs are stable. PAST MEDICAL HISTORY: 1. Alcoholism. 2. Polysubstance abuse. 3. Back injury with chronic pain. MEDICATIONS: As outpatient none. ALLERGIES: To PENICILLIN. FAMILY HISTORY: The patient's father was also an alcoholic. SOCIAL HISTORY: The patient reports mild episodic tobacco abuse. He would drink about 1 quart of vodka a day. He smokes marijuana frequently. He denies other recreational drug use or injectable drug use. He lives alone. He is disabled secondary to back injury. REVIEW OF SYSTEMS: A 14-point review of systems was completed, and all those not mentioned above were negative. PHYSICAL EXAMINATION GENERAL: Mr. Epps is lying in the bed. He is in no acute distress. VITAL SIGNS: Temperature 97.8, pulse rate 93, respiratory rate 20, O2 saturation 99% on room air, blood pressure 146/85. LUNGS: Clear to auscultation bilaterally with no accessory muscle use and good aeration. HEART: S1, and S2. No murmur, rub, or gallop, and regular. ABDOMEN: Soft, nontender with bowel sounds positive x4. EXTREMITIES: No cyanosis or edema. The patient does have tremors in his hands. NEURO: He is alert, he is oriented x3. He moves all extremities equally. There is no facial asymmetry or focal weakness. Extraocular movements are intact. DIAGNOSTIC STUDIES/LAB DATA: WBC 8.2, hemoglobin 13.9, hematocrit 42, platelet count 245. Sodium 132, potassium 4.1, chloride 101, serum bicarbonate 24, BUN 7, creatinine 0.60, glucose 122. AST 33, ALT 28, alk phos 67. ASSESSMENT AND PLAN: Mr. Epps is a 56-year-old male with a past medical history of alcoholism, who presents again today with need for supervised alcohol withdrawal out of concern for delirium tremens given the degree of daily alcohol ingestion. Our plans are for inpatient admission as I expect his length of stay to be greater than 2 days for the followin. Alcohol withdrawal. The patient is tremulous now, but is not hypertensive or diaphoretic. He will be maintained on withdrawal protocol with Ativan as needed. He will have multivitamins, thiamine, folate supplementation. He will have intravenous fluids. Social Work has been consulted. 2. Hyponatremia. I suspect this is secondary to alcoholism. Plan to repeat his labs in the a.m. after IV fluids today. 3. Code status is full code. 4. Disposition: To medical floor. TIME SPENT: Approximately 60 minutes was spent on the admission of this patient , more than half of the time was spent with the patient at the bedside reviewing the events leading up to this hospitalization, performing the physical examination, and reviewing the plan of care. MAYURI MORILLO NP [id number]/[facility] #: [id number] EFRAIN
[2017-04-28] MEDS: NS 0.9% 1000 ML* 1,000 ML IV SCH ×2 (00:02→06:37)
[2017-04-28] MEDS: Omeprazole CAP* 20 MG PO SCH (05:34)
[2017-04-28] MEDS: LORazepam TAB(*) 1 MG PO SCH ×5 (06:09→22:41)
[2017-04-28 07:31] LABS: EGFR Non-African American 122.7 (>60)
[2017-04-28] MEDS: Multivitamins/Minerals TAB PO SCH (08:48)
[2017-04-28] MEDS: Thiamine TAB* 100 MG TAB PO SCH (08:48)
[2017-04-28] MEDS: Folic Acid TAB* 1 MG PO SCH (08:48)
--- NOTE | 2017-04-28 11:49 | PN ---
Subjective Date of Service: 04/28/17 Interval History: Patient reports that he is feeling well. No c/o abd pain, nausea, vomiting or diarrhea. Denies chest pain or shortness of breath. Denies any urinary symptoms. Denies feeling agitated or restless. Family History: Unchanged from Admission Social History: Unchanged from Admission Past Medical History: Unchanged from Admission Objective Active Medications: Acetaminophen (Tylenol Tab*) 650 mg PO Q4H PRN PRN Reason: PAIN Ascorbic Acid (Vitamin C Tab*) 500 mg PO BID [facility] Cholecalciferol (Vitamin D3 Cap/Tab (Nf)) 1 cap PO DAILY [facility] Folic Acid (Folvite Tab*) 1 mg PO DAILY [facility] Last Admin: 04/28/17 08:48 Dose: 1 mg Sodium Chloride (Ns 0.9% 1000 Ml*) 1,000 mls @ 100 mls/hr IV PER RATE [facility] Last Admin: 04/28/17 06:37 Dose: 100 mls/hr Lorazepam (Ativan Tab(*)) 0 - 6 mg PO .PER [facility] PROTOCOL [facility] PRN Reason: Protocol Last Admin: 04/28/17 06:09 Dose: 1 mg Multivitamins/Minerals (Theragran/Minerals Tab*) 1 tab PO DAILY [facility] Last Admin: 04/28/17 08:48 Dose: 1 tab Omeprazole (Prilosec Cap*) 20 mg PO DAILY@0600 [facility] Last Admin: 04/28/17 05:34 Dose: Not Given Ondansetron HCl (Zofran Inj*) 4 mg IV Q6H PRN PRN Reason: NAUSEA Thiamine HCl (Vitamin B-1 Tab*) 100 mg PO DAILY [facility] Last Admin: 04/28/17 08:48 Dose: 100 mg Vital Signs - 8 hr 04/28/17 04/28/17 04/28/17 04:06 06:00 06:03 Temperature 97.7 F 97.8 F Pulse Rate 73 85 Respiratory 16 20 18 Rate Blood Pressure 114/67 137/75 (mmHg) O2 Sat by Pulse 98 99 Oximetry 04/28/17 04/28/17 04/28/17 06:09 07:20 08:00 Temperature 97.9 F Pulse Rate 79 Respiratory 20 15 18 Rate Blood Pressure 122/75 (mmHg) O2 Sat by Pulse 99 Oximetry 04/28/17 08:34 Temperature Pulse Rate Respiratory 18 Rate Blood Pressure (mmHg) O2 Sat by Pulse Oximetry Oxygen Devices in Use Now: None Appearance: Alert and oriented sitting in bed no complaints. appears comfortable Eyes: No Scleral Icterus, PERRLA Ears/Nose/Mouth/Throat: Clear Oropharnyx, Mucous Membranes Moist Neck: NL Appearance and Movements; NL JVP, Trachea Midline Respiratory: Symmetrical Chest Expansion and Respiratory Effort, Clear to Auscultation Cardiovascular: NL Sounds; No Murmurs; No JVD, RRR, No Edema Abdominal: NL Sounds; No Tenderness; No Distention Extremities: No Edema, No Clubbing, Cyanosis Skin: No Rash or Ulcers Neurological: Alert and Oriented x 3 Nutrition: Taking PO's Result Diagrams: 04/27/17 12:31 04/28/17 06:51 Assess/Plan/Problems-Billing Assessment: - Patient Problems (1) Alcohol withdrawal Current Visit: No Status: Acute Priority: High Code(s): F10.239 - ALCOHOL DEPENDENCE WITH WITHDRAWAL, UNSPECIFIED SNOMED Code(s): 835502602 Comment: - [facility] protocol with ativan - Thiamine, MVI, folic acid, Vitamin C, PPI - tolerating PO food and fluids, IVF stopped - SW consult--facility inpatient rehab would be best, patient wouldlike inpatient rehab (2) DVT prophylaxis Current Visit: No Status: Acute Code(s): [id number] - SNOMED Code(s): 326284849 Comment: Low risk- ambulate
[2017-04-28] MEDS: Ascorbic Acid TAB* 500 MG PO SCH ×2 (12:54→20:42)
[2017-04-28] MEDS: Cholecalciferol TAB* 400 UNIT PO SCH (12:55)
[2017-04-29] MEDS: Omeprazole CAP* 20 MG PO SCH (06:00)
[2017-04-29] MEDS: Cholecalciferol TAB* 400 UNIT PO SCH (07:49)
[2017-04-29] MEDS: Thiamine TAB* 100 MG TAB PO SCH (07:49)
[2017-04-29] MEDS: Folic Acid TAB* 1 MG PO SCH (07:49)
[2017-04-29] MEDS: Multivitamins/Minerals TAB PO SCH (07:49)
[2017-04-29] MEDS: Ascorbic Acid TAB* 500 MG PO SCH ×2 (07:49→21:29)
--- NOTE | 2017-04-29 15:28 | PN ---
Subjective Date of Service: 04/29/17 Interval History: Patient seen and examined at bedside. Denies fever, chills, shortness of breath , chest discomfort, N/V/D. Pt would like to get into inpatient rehab and has been instructed to call on Sunday morning by [facility]. Pt reported that his tremors are almost gone and he didn't withdrawal that hard this time because he had started to mellissa himself off prior to his admission. He reports that his PCP would like him to be transferred directly to a rehab. After discussing that the patient is ready for discharge to home today, she started to get very anxious and stated that he was unable to go home. He developed increased tremors. Pt has not required Ativan since last evening. Pt states that he is unable to go home today, because he has several drug abusing homeless people who are staying in his apartment. Family History: Unchanged from Admission Social History: Unchanged from Admission Past Medical History: Unchanged from Admission Objective Active Medications: Acetaminophen (Tylenol Tab*) 650 mg PO Q4H PRN Reason: PAIN Ascorbic Acid (Vitamin C Tab*) 500 mg PO BID [facility] Cholecalciferol (Vitamin D Tab*) 400 unit PO DAILY [facility] Folic Acid (Folvite Tab*) 1 mg PO DAILY [facility] Lorazepam (Ativan Tab(*)) 0 - 6 mg PO .PER [facility] PROTOCOL [facility] Multivitamins/Minerals (Theragran/Minerals Tab*) 1 tab PO DAILY [facility] Omeprazole (Prilosec Cap*) 20 mg PO DAILY@0600 [facility] Ondansetron HCl (Zofran Inj*) 4 mg IV Q6H PRN Reason: NAUSEA Thiamine HCl (Vitamin B-1 Tab*) 100 mg PO DAILY [facility] Vital Signs - 8 hr 04/29/17 04/29/17 04/29/17 07:53 08:00 10:11 Temperature Pulse Rate 85 89 Respiratory 16 Rate Blood Pressure 128/85 133/75 (mmHg) O2 Sat by Pulse Oximetry 04/29/17 11:48 Temperature 98.0 F Pulse Rate 89 Respiratory Rate Blood Pressure 143/87 (mmHg) O2 Sat by Pulse 98 Oximetry Oxygen Devices in Use Now: None Appearance: NAD, sitting up in a chair Ears/Nose/Mouth/Throat: Mucous Membranes Moist Respiratory: Symmetrical Chest Expansion and Respiratory Effort, Clear to Auscultation Cardiovascular: NL Sounds; No Murmurs; No JVD, RRR Abdominal: NL Sounds; No Tenderness; No Distention Extremities: No Edema Skin: No Rash or Ulcers Neurological: Alert and Oriented x 3, NL Muscle Strength and Tone Lines/Tubes/Other Access: Clean, Dry and Intact Peripheral IV - site benign Nutrition: Taking PO's Result Diagrams: 04/27/17 12:31 04/28/17 06:51 Assess/Plan/Problems-Billing Assessment: Mr. Epps is a 56 yo male with PMH significant for ETOH and polysubstance abuse who presented as a direct admission from his PCP's office for alcohol withdrawal. - Patient Problems (1) Alcohol withdrawal Code(s): F10.239 - ALCOHOL DEPENDENCE WITH WITHDRAWAL, UNSPECIFIED SNOMED Code (s): 363431636 Comment: - WAM score 1-7 - Thiamine, MVI, folic acid, Vitamin C, PPI - Tolerating PO food and fluids, IVF stopped - Continue WAM protocol with ativan (2) Hyponatremia Code(s): E87.1 - HYPO-OSMOLALITY AND HYPONATREMIA SNOMED Code(s): 84256557 Comment: - Resolved - Suspect secondary to alcoholism (3) Chronic pain Code(s): G89.29 - OTHER CHRONIC PAIN SNOMED Code(s): 14707199 Comment: - Supportive care (4) DVT prophylaxis Code(s): OTK8583 - SNOMED Code(s): 453744266 Comment: - Low risk- ambulate (5) Full code status Code(s): Z78.9 - OTHER SPECIFIED HEALTH STATUS SNOMED Code(s): 768699122 Status and Disposition: Inpatient. Stable for discharge to home today, but Pt became very anxious. Plan for discharge to home in the AM.
[2017-04-29] MEDS: LORazepam TAB(*) 1 MG PO SCH ×2 (16:06→23:46)
[2017-04-29] MEDS ORDERED: Naproxen TAB* 250 MG PO PRN (21:49)
[2017-04-30] MEDS: Omeprazole CAP* 20 MG PO SCH (06:00)
--- NOTE | 2017-04-30 10:26 | PN ---
Subjective Date of Service: 04/30/17 Interval History: Sitting in chair, mild shaking noted. States that he has little bit of nausea today. States that he does not feels safe going home. Denies chest pain , denies shortness of breath. Denies vomiting, diarrhea or abd pain. Family History: Unchanged from Admission Social History: Unchanged from Admission Past Medical History: Unchanged from Admission Objective Active Medications: Acetaminophen (Tylenol Tab*) 650 mg PO Q4H PRN PRN Reason: PAIN Ascorbic Acid (Vitamin C Tab*) 500 mg PO BID [facility] Last Admin: 04/29/17 21:29 Dose: 500 mg Cholecalciferol (Vitamin D Tab*) 400 unit PO DAILY [facility] Last Admin: 04/29/17 07:49 Dose: 400 unit Folic Acid (Folvite Tab*) 1 mg PO DAILY [facility] Last Admin: 04/29/17 07:49 Dose: 1 mg Lorazepam (Ativan Tab(*)) 0 - 6 mg PO .PER [facility] PROTOCOL [facility] PRN Reason: Protocol Last Admin: 04/29/17 23:46 Dose: 1 mg Multivitamins/Minerals (Theragran/Minerals Tab*) 1 tab PO DAILY [facility] Last Admin: 04/29/17 07:49 Dose: 1 tab Naproxen (Naprosyn Tab*) 500 mg PO Q6HR PRN PRN Reason: DISCOMFORT Nf Med* ([place]-3 Fatty Acids [Fish Oil] 500 Mg) 500 mg PO DAILY WITH MEAL [facility] Omeprazole (Prilosec Cap*) 20 mg PO DAILY@0600 [facility] Last Admin: 04/30/17 06:00 Dose: Not Given Ondansetron HCl (Zofran Inj*) 4 mg IV Q6H PRN PRN Reason: NAUSEA Thiamine HCl (Vitamin B-1 Tab*) 100 mg PO DAILY [facility] Last Admin: 04/29/17 07:49 Dose: 100 mg Vital Signs - 8 hr 04/30/17 04/30/17 04/30/17 03:22 03:44 08:03 Temperature 97.7 F 98.1 F Pulse Rate 77 83 Respiratory 17 19 16 Rate Blood Pressure 128/79 122/77 (mmHg) O2 Sat by Pulse 98 99 Oximetry Oxygen Devices in Use Now: None Appearance: alert and oriented x3 sitting in the chair, becomes very tremulous when spoke to about going home. Eyes: No Scleral Icterus, PERRLA Ears/Nose/Mouth/Throat: NL Teeth, Lips, Gums, Mucous Membranes Moist Neck: NL Appearance and Movements; NL JVP, Trachea Midline Respiratory: Symmetrical Chest Expansion and Respiratory Effort, Clear to Auscultation Cardiovascular: NL Sounds; No Murmurs; No JVD, RRR, No Edema Abdominal: NL Sounds; No Tenderness; No Distention Extremities: No Edema, No Clubbing, Cyanosis Skin: No Rash or Ulcers Neurological: Alert and Oriented x 3, NL Gait, NL Muscle Strength and Tone Nutrition: Taking PO's Result Diagrams: 04/27/17 12:31 04/28/17 06:51 Assess/Plan/Problems-Billing Assessment: Mr. Epps is a 56 yo male with PMH significant for ETOH and polysubstance abuse who presented as a direct admission from his PCP's office for alcohol withdrawal. - Patient Problems (1) Alcohol withdrawal Current Visit: Yes Status: Acute Priority: High Code(s): F10.239 - ALCOHOL DEPENDENCE WITH WITHDRAWAL, UNSPECIFIED SNOMED Code(s): 720799732 Comment: - WAM score 1-7 - Thiamine, MVI, folic acid, Vitamin C, PPI - Tolerating PO food and fluids, IVF stopped - Continue WAM protocol with ativan did recieved ativan at midnight, will continue to monitor for the next 24 hours (2) DVT prophylaxis Current Visit: Yes Status: Acute Code(s): [id number] - SNOMED Code(s): 638256153 Comment: - Low risk- ambulate Status and Disposition: Inpatient. Stable for discharge to home today, but Pt became very anxious when discussing discharging home, shaking , states that he does not have a safe environment to go home too, he has many homeless people living with him that are using drugs and drinking. He has received Ativan 1 dose at midnight, will monitor for another 24 hours. Social work to see in AM for possible transfer to inpatient rehab.
[2017-04-30] MEDS: OMEGA PO SCH (10:43)
[2017-04-30] MEDS: FATTY ACIDS PO SCH (10:43)
[2017-04-30] MEDS: Thiamine TAB* 100 MG TAB PO SCH (10:46)
[2017-04-30] MEDS: Folic Acid TAB* 1 MG PO SCH (10:46)
[2017-04-30] MEDS: Cholecalciferol TAB* 400 UNIT PO SCH (10:46)
[2017-04-30] MEDS: Multivitamins/Minerals TAB PO SCH (10:46)
[2017-04-30] MEDS: Ascorbic Acid TAB* 500 MG PO SCH ×2 (10:46→20:34)
[2017-05-01] MEDS: Omeprazole CAP* 20 MG PO SCH (05:49)
[2017-05-01] MEDS: Cholecalciferol TAB* 400 UNIT PO SCH (09:40)
[2017-05-01] MEDS: Folic Acid TAB* 1 MG PO SCH (09:41)
[2017-05-01] MEDS: Thiamine TAB* 100 MG TAB PO SCH (09:41)
[2017-05-01] MEDS: Ascorbic Acid TAB* 500 MG PO SCH ×2 (09:41→20:05)
[2017-05-01] MEDS: Multivitamins/Minerals TAB PO SCH (09:41)
[2017-05-01] MEDS: FATTY ACIDS PO SCH (11:12)
[2017-05-01] MEDS: OMEGA PO SCH (11:12)
--- NOTE | 2017-05-01 12:28 | PN ---
Subjective Date of Service: 05/01/17 Interval History: Patient states that he is feeling well today. No c/o shaking. Denies nausea, vomiting or diarrhea. Denies abd pain. Denies chest pain or shortness of breath. Reports that he would like to go to inpatient rehab today. Family History: Unchanged from Admission Social History: Unchanged from Admission Past Medical History: Unchanged from Admission Objective Active Medications: Acetaminophen (Tylenol Tab*) 650 mg PO Q4H PRN PRN Reason: PAIN Ascorbic Acid (Vitamin C Tab*) 500 mg PO BID [facility] Last Admin: 05/01/17 09:41 Dose: 500 mg Cholecalciferol (Vitamin D Tab*) 400 unit PO DAILY [facility] Last Admin: 05/01/17 09:40 Dose: 400 unit Fish Oil (Fish Oil (Nf)) 1,000 mg PO DAILY [facility] PRN Reason: Protocol Folic Acid (Folvite Tab*) 1 mg PO DAILY [facility] Last Admin: 05/01/17 09:41 Dose: 1 mg Lorazepam (Ativan Tab(*)) 0 - 6 mg PO .PER [facility] PROTOCOL [facility] PRN Reason: Protocol Last Admin: 04/29/17 23:46 Dose: 1 mg Multivitamins/Minerals (Theragran/Minerals Tab*) 1 tab PO DAILY [facility] Last Admin: 05/01/17 09:41 Dose: 1 tab Naproxen (Naprosyn Tab*) 500 mg PO Q6HR PRN PRN Reason: DISCOMFORT Omeprazole (Prilosec Cap*) 20 mg PO DAILY@0600 [facility] Last Admin: 05/01/17 05:49 Dose: Not Given Ondansetron HCl (Zofran Inj*) 4 mg IV Q6H PRN PRN Reason: NAUSEA Thiamine HCl (Vitamin B-1 Tab*) 100 mg PO DAILY [facility] Last Admin: 05/01/17 09:41 Dose: 100 mg Vital Signs - 8 hr 05/01/17 05/01/17 07:28 08:00 Temperature 97.9 F Pulse Rate 55 Respiratory 18 17 Rate Blood Pressure 122/74 (mmHg) O2 Sat by Pulse 100 Oximetry Oxygen Devices in Use Now: None Appearance: alert and oriented x3 , appears calm and pleasent at this time. Eyes: No Scleral Icterus Ears/Nose/Mouth/Throat: NL Teeth, Lips, Gums, Clear Oropharnyx, Mucous Membranes Moist Neck: NL Appearance and Movements; NL JVP, Trachea Midline Respiratory: Symmetrical Chest Expansion and Respiratory Effort, Clear to Auscultation Cardiovascular: NL Sounds; No Murmurs; No JVD, RRR, No Edema Abdominal: NL Sounds; No Tenderness; No Distention Extremities: No Edema, No Clubbing, Cyanosis Skin: No Rash or Ulcers Neurological: Alert and Oriented x 3, NL Gait, NL Muscle Strength and Tone Nutrition: Taking PO's Result Diagrams: 04/27/17 12:31 04/28/17 06:51 Assess/Plan/Problems-Billing Assessment: Mr. Epps is a 56 yo male with PMH significant for ETOH and polysubstance abuse who presented as a direct admission from his PCP's office for alcohol withdrawal. He is doing well, has not required Ativan for over 24 hours. No shaking or tremors. - Patient Problems (1) Alcohol withdrawal Current Visit: Yes Status: Acute Priority: High Code(s): F10.239 - ALCOHOL DEPENDENCE WITH WITHDRAWAL, UNSPECIFIED SNOMED Code(s): 382832907 Comment: - WAM score 1-7 - Thiamine, MVI, folic acid, Vitamin C, PPI - Tolerating PO food and fluids, IVF stopped - Continue WAM protocol - Has not required ativan for over 24 hours (2) DVT prophylaxis Current Visit: Yes Status: Acute Code(s): [id number] - SNOMED Code(s): 851495294 Comment: - Low risk- ambulate Status and Disposition: Inpatient. Stable for discharge to home today. [facility], If bed is available he will be transferred. If no beds are available he will be discharged home. Pt is aware of the plan and is looking at options for a safe place to stay if there is not a bed available.
[2017-05-01] MEDS: CMCS: OMEGA-3 FATTY ACIDS (NF) 1,000 MG CAP PO SCH (12:40)
[2017-05-02] MEDS: Omeprazole CAP* 20 MG PO SCH (06:16)
[2017-05-02] MEDS: Ascorbic Acid TAB* 500 MG PO SCH (07:59)
[2017-05-02] MEDS: Multivitamins/Minerals TAB PO SCH (07:59)
[2017-05-02] MEDS: Cholecalciferol TAB* 400 UNIT PO SCH (07:59)
[2017-05-02] MEDS: CMCS: OMEGA-3 FATTY ACIDS (NF) 1,000 MG CAP PO SCH (07:59)
[2017-05-02] MEDS: Folic Acid TAB* 1 MG PO SCH (07:59)
[2017-05-02] MEDS: Thiamine TAB* 100 MG TAB PO SCH (07:59)
[2017-05-02 08:01] VITALS: BP 114/81
--- NOTE | 2017-05-02 12:47 | PN ---
Subjective Date of Service: 05/02/17 Interval History: Patient states that he is feeling well . No complaints. Denies tremors, Denies N/V/D or abd pain. Denies chest pain or SOB. Family History: Unchanged from Admission Social History: Unchanged from Admission Past Medical History: Unchanged from Admission Objective Active Medications: Acetaminophen (Tylenol Tab*) 650 mg PO Q4H PRN PRN Reason: PAIN Ascorbic Acid (Vitamin C Tab*) 500 mg PO BID [facility] Last Admin: 05/02/17 07:59 Dose: 500 mg Cholecalciferol (Vitamin D Tab*) 400 unit PO DAILY [facility] Last Admin: 05/02/17 07:59 Dose: 400 unit Fish Oil (Fish Oil (Nf)) 1,000 mg PO DAILY [facility] PRN Reason: Protocol Last Admin: 05/02/17 07:59 Dose: 1,000 mg Folic Acid (Folvite Tab*) 1 mg PO DAILY [facility] Last Admin: 05/02/17 07:59 Dose: 1 mg Lorazepam (Ativan Tab(*)) 0 - [address] [facility] PROTOCOL [facility] PRN Reason: Protocol Last Admin: 04/29/17 23:46 Dose: 1 mg Multivitamins/Minerals (Theragran/Minerals Tab*) 1 tab PO DAILY [facility] Last Admin: 05/02/17 07:59 Dose: 1 tab Naproxen (Naprosyn Tab*) 500 mg PO Q6HR PRN PRN Reason: DISCOMFORT Omeprazole (Prilosec Cap*) 20 mg PO DAILY@0600 [facility] Last Admin: 05/02/17 06:16 Dose: Not Given Ondansetron HCl (Zofran Inj*) 4 mg IV Q6H PRN PRN Reason: NAUSEA Thiamine HCl (Vitamin B-1 Tab*) 100 mg PO DAILY [facility] Last Admin: 05/02/17 07:59 Dose: 100 mg Vital Signs - 8 hr 05/02/17 05/02/17 05:49 07:16 Temperature 97.4 F 97.6 F Pulse Rate 72 77 Respiratory 16 16 Rate Blood Pressure 131/79 114/81 (mmHg) O2 Sat by Pulse 99 100 Oximetry Oxygen Devices in Use Now: None Appearance: Awake, Alert and oriented x 3, pleasent Eyes: No Scleral Icterus, PERRLA Ears/Nose/Mouth/Throat: NL Teeth, Lips, Gums, Clear Oropharnyx, Mucous Membranes Moist Neck: NL Appearance and Movements; NL JVP, Trachea Midline Respiratory: Symmetrical Chest Expansion and Respiratory Effort, Clear to Auscultation Cardiovascular: NL Sounds; No Murmurs; No JVD, RRR, No Edema Abdominal: NL Sounds; No Tenderness; No Distention Extremities: No Edema, No Clubbing, Cyanosis Skin: No Rash or Ulcers Neurological: Alert and Oriented x 3, NL Sensation, NL Gait, NL Muscle Strength and Tone Nutrition: Taking PO's Result Diagrams: 04/27/17 12:31 04/28/17 06:51 Assess/Plan/Problems-Billing Assessment: Mr. Epps is a 56 yo male with PMH significant for ETOH and polysubstance abuse who presented as a direct admission from his PCP's office for alcohol withdrawal. He is doing well, has not required Ativan for over 24 hours. No shaking or tremors. - Patient Problems (1) Alcohol withdrawal Current Visit: Yes Status: Acute Priority: High Code(s): F10.239 - ALCOHOL DEPENDENCE WITH WITHDRAWAL, UNSPECIFIED SNOMED Code(s): 116408781 Comment: - WAM score 1-7 - Thiamine, MVI, folic acid, Vitamin C, PPI - Tolerating PO food and fluids, IVF stopped - Continue WAM protocol - Has not required ativan for over 24 hours Will discharge home today Has pending inpatient rehab bed at [facility] in [place] (2) DVT prophylaxis Current Visit: Yes Status: Acute Code(s): ILG9904 - SNOMED Code(s): 874033531 Comment: - Low risk- ambulate Status and Disposition: Inpatient. Stable for discharge to home today. Has a intake screening call for [facility] tomorrow at 11 AM, If bed is available he will be transferred. If no beds are available he will be discharged home. Pt is aware of the plan and is looking at options for a safe place to stay if there is not a bed available.
--- NOTE | 2017-05-03 11:42 | DS ---
CC: Dr. Mart * DISCHARGE SUMMARY: DATE OF ADMISSION: 04/27/17 DATE OF DISCHARGE: 05/02/17 ATTENDING PHYSICIAN: Geraldine June MD * (report dictated by Roopa Sanderson NP). PROVIDER: Roopa Sanderson NP. PRIMARY DIAGNOSIS: Alcohol withdrawal. SECONDARY DIAGNOSES: Polysubstance abuse and back injury with chronic pain. STUDIES WHILE IN THE HOSPITAL: He did not receive any x-rays. He did receive some routine lab work which was within normal limits. Sodium was 133, potassium was 4.4, chloride was 104, glucose was 126, creatinine 0.67, BUN 8, magnesium was 1.9. DISCHARGE MEDICATIONS: He will return home on, 1. Vitamin C 500 mg b.i.d. 2. Vitamin D 400 units p.o. daily. 3. Fish oil 1000 mg p.o. daily. 4. Multivitamin 1 p.o. daily. HISTORY OF PRESENT ILLNESS: Mr. Epps is a 56-year-old male with no significant history other than alcoholism with repeat admission to our hospital for alcohol withdrawal symptoms who presented to the emergency room on 04/27/17 for alcohol withdrawal. Mr. Epps states that he has been drinking heavily at least 1 bottle of vodka daily for several months. His last admission was August 2016 and was discharged to a 2-week rehab. After that he was sober for approximately 30 days, but since then he has been drinking quite heavily. Mr. Epps was transitioned here for direct admission for the concern of delirium tremors or possible seizure. While in the hospital, Mr. Epps had lab work drawn, which showed initially hyponatremia, otherwise his lab work was unremarkable. His magnesium level was normal at 1.9. His potassium level was normal and remained stable at 4.4. A repeat BMP showed a sodium of 133, which was within normal limits. His glucose was 122 and 126. He was placed on the WAM protocol and needed minimal intervention with Ativan. He received 2 doses of Ativan during his admission to the hospital. His last dose was 04/29/17 at 2346 hours. He has been stable without tremors during his stay. At this point , he is stable for discharge home. He is looking to go to inpatient rehab at [facility]. He has done the initial screening call and is awaiting a bed assignment at this time. Mr. Epps is stable for discharge home. PHYSICAL EXAMINATION: Vital signs are as follows: Temperature is 97.6, heart rate is 77, respirations are 16, O2 saturations are 100% on room air. Blood pressure was 114/81. DISCHARGE PLAN: Mr. Epps will be discharged back to his home. He is currently awaiting an inpatient bed at [facility], which he has already completed his screening call. He is currently awaiting for a bed and will be contacted at home when there is a bed available. He was advised to refrain from drinking and using drugs. I also advised him to limit his contact to people that are using drugs and drinking alcohol. For followup, he should report to inpatient rehab at [facility] when there is a bed available. He can follow up with his doctor in 4 to 7 days, Dr. Mart. This is a summary of his medical history during his hospital stay. For further details, please see the entire medical report. TIME SPENT: On this discharge was approximately 60 minutes, greater than half that time was spent with the patient discussing the plans and instructions. CONDITION AT DISCHARGE: Stable. ROOPA SANDERSON NP [id number]/ADOLFO #: [id number] EFRAIN
== END 2017-05-02 15:10 | disposition home or self-care (01) | DRG 897 ==
LOC: MED 11:04
PROVIDERS: ADMIT Hospitalist; ATTEND Internal Medicine
DX: F10.239 Alcohol dependence with withdrawal, unspecified (principal); E87.1 Hypo-osmolality and hyponatremia; M54.9 Dorsalgia, unspecified; F17.210 Nicotine dependence, cigarettes, uncomplicated; F12.10 Cannabis abuse, uncomplicated; Z81.1 Family history of alcohol abuse and dependence; Z88.0 Allergy status to penicillin
CPT/HCPCS: 36415; 80048; 80053; 83735; 85025; A9270-GY

== ENCOUNTER 2017-10-18 07:48 | Inpatient (IN) | payer MEDICARE, MEDICAID ==
[2017-10-18] MEDS ORDERED: LORazepam INJ* 2 MG/ML 1 ML VIAL IV PUSH ONE (08:12)
[2017-10-18] MEDS ORDERED: Thiamine IV* 100 MG, Folic Acid IV* 1 MG, Multiple Vitamin IV ADULT* 10 ML in NS 0.9% 1... IV ONE (08:12)
[2017-10-18] MEDS ORDERED: Ondansetron ODT TAB* 4 MG PO ONE (08:15)
[2017-10-18] MEDS ORDERED: Thiamine IV* 100 MG/ML 2 ML VIAL IM ONE (08:29)
[2017-10-18] MEDS ORDERED: Acetaminophen TAB* 325 MG PO PRN (08:29)
[2017-10-18 08:44] LABS: ABS Basophils 0 10^3/ul (0-0.2); ABS Eosinophils 0 10^3/ul (0-0.6); ABS Monocytes 0.6 10^3/ul (0-0.8); ABS Neutrophils 4.6 10^3/ul (1.5-7.7); ABS Nucleated RBC 0 10^3/ul; Eosinophil % 0.5 % (0-6); Hematocrit 43 % (42-52); Hemoglobin 15.2 g/dl (14.0-18.0); Mean Corpuscular HGB Conc 35 g/dl (31-36); Mean Corpuscular Hemoglobin 33 pg (27-31); Mean Corpuscular Volume 93 fL (80-94); Mean Platelet Volume 8.3 um3 (7.4-10.4); Nucleated Red Blood Cells % 0.1; Platelet Count 182 10^3/ul (150-450); Red Blood Count 4.68 10^6/ul (4.00-5.40); Red Cell Distribution Width 14 % (10.5-15); White Blood Count 7.2 10^3/ul (3.5-10.8)
--- NOTE | 2017-10-18 08:56 | ED ---
Substance Abuse/Use - HPI Summary HPI Summary: Patient is a 56-year-old presents emergency department for alcohol withdrawal. He is a daily alcoholic and drinks about a quart of vodka a day. Patient last drank last night. Patient states that he wants to be sober. He has gone through DTs in the past. Patient is currently complaining of nausea, tremors, headache, hallucinations, chest discomfort. He denies other medical problems and does not take any daily medications. Symptoms are moderate in severity. No current modifying factors. - History Of Current Complaint Chief Complaint: EDDetoxRequest Stated Complaint: ALCOHOL WITHDRAWLS Time Seen by Provider: 10/18/17 08:03 Hx Obtained From: Patient - Allergies/Home Medications Allergies/Adverse Reactions: Allergies Allergy/AdvReac Type Severity Reaction Status Date / Time Penicillins Allergy Intermediate Rash Verified 10/18/17 08:09 Home Medications: Home Medications NK [No Home Medications Reported] 10/18/17 [History Confirmed 10/18/17] PMH/Surg Hx/FS Hx/Imm Hx Previously Healthy: Yes Endocrine/Hematology History: Denies: Hx Anticoagulant Therapy GI History: Reports: Other GI Disorders - Lower inguinal hernia Musculoskeletal History: Reports: Hx Back Problems - ruptured disc Denies: Hx Rheumatoid Arthritis, Hx Osteoporosis Sensory History: Reports: Hx Contacts or Glasses Denies: Hx Hearing Aid Opthamlomology History: Reports: Hx Contacts or Glasses Neurological History: Reports: Hx Migraine, Hx Spinal Cord Injury, Other Neuro Impairments/Disorders - Sciatica Psychiatric History: Reports: Hx Anxiety, Hx Depression, Hx Inpatient Treatment - [facility], Hx [facility], Hx of Violent Episodes Against Others , Hx Substance Abuse - alcoholism Denies: Hx Attention Deficit Hyperactivity Disorder, Hx Eating Disorder, Hx Panic Disorder, Hx Post Traumatic Stress Disorder, Hx Schizophrenia, Hx Bipolar Disorder, Hx Suicide Attempt, Other Psychiatric Issues/Disorders - Surgical History Surgery Procedure, Year, and Place: Tonsillectomy, dental Hx Anesthesia Reactions: No - Immunization History Date of Tetanus Vaccine: Unk Date of Influenza Vaccine: None Infectious Disease History: No Infectious Disease History: Denies: History Other Infectious Disease, Traveled Outside the [place] in Last 30 Days - Family History Known Family History: Positive: None Negative: Cardiac Disease, Hypertension, Diabetes - Social History Occupation: Disabled Lives: With Family Alcohol Use: Daily Alcohol Amount: Quart of Vodka/day Hx Substance Use: Yes Substance Use Type: Reports: Marijuana Substance Use Comment - Amount & Last Used: 10/17/17 Hx Tobacco Use: Yes Smoking Status (MU): Former Smoker Type: Cigarettes Have You Smoked in the Last Year: Yes Review of Systems Constitutional: Negative Eyes: Negative ENT: Negative Positive: Chest Pain Respiratory: Negative Positive: Nausea Musculoskeletal: Negative Positive: Headache Positive: Anxious All Other Systems Reviewed And Are Negative: Yes Physical Exam Triage Information Reviewed: Yes Vital Signs On Initial Exam: Initial Vitals Pulse Resp BP Pulse Ox 98 22 132/95 98 10/18/17 07:06 10/18/17 07:06 10/18/17 07:06 10/18/17 07:06 Vital Signs Reviewed: Yes Appearance: Positive: Pain Distress - Patient sitting on bed, tremulous, in no acute distress Skin: Positive: Warm, Dry Head/Face: Positive: Normal Head/Face Inspection Eyes: Positive: Normal Neck: Positive: Supple Respiratory/Lung Sounds: Positive: Clear to Auscultation, Breath Sounds Present Cardiovascular: Positive: Normal, RRR Abdomen Description: Positive: Nontender, Soft Musculoskeletal: Positive: Normal. Negative: Edema Left, Edema Right Neurological: Positive: Normal, CN Intact II-III Psychiatric: Positive: Affect/Mood Appropriate Diagnostics - Vital Signs Vital Signs Temp Pulse Resp BP Pulse Ox 10/18/17 08:34 18 10/18/17 08:04 100 98 10/18/17 07:53 98.5 F 108 19 120/87 98 10/18/17 07:06 98 22 132/95 98 - Laboratory Lab Results: Lab Results 10/18/17 Range/Units 08:28 WBC 7.2 (3.5-10.8) 10^3/ul RBC 4.68 (4.00-5.40) 10^6/ul Hgb 15.2 (14.0-18.0) g/dl Hct 43 (42-52) % MCV 93 (80-94) fL MCH 33 H (27-31) pg MCHC 35 (31-36) g/dl RDW 14 (10.5-15) % Plt Count 182 (150-450) 10^3/ul MPV 8.3 (7.4-10.4) um3 Neut % (Auto) 63.1 (38-83) % Lymph % (Auto) 27.0 (25-47) % Mitchell % (Auto) 8.8 H (0-7) % Eos % (Auto) 0.5 (0-6) % Baso % (Auto) 0.6 (0-2) % Absolute Neuts (auto) 4.6 (1.5-7.7) 10^3/ul Absolute Lymphs (auto) 2.0 (1.0-4.8) 10^3/ul Absolute Monos (auto) 0.6 (0-0.8) 10^3/ul Absolute Eos (auto) 0 (0-0.6) 10^3/ul Absolute Basos (auto) 0 (0-0.2) 10^3/ul Absolute Nucleated RBC 0 10^3/ul Nucleated RBC % 0.1 Result Diagrams: 10/18/17 08:28 0618 08:28 Lab Statement: Any lab studies that have been ordered have been reviewed, and results considered in the medical decision making process. Course/Dx - Course Course Of Treatment: Patient presenting to the ER for alcohol withdrawal. Vital signs are currently stable. WAM protocol ordered. Pt. will need to be admitted. ECG done at 0816 shows a sinus rhythm of 89bpm, normal axis, no ST elevation or depression, appropriate intervals. CBC is unremarkable. CMP shows mild decrease in Na 134, mag 1.6, co2 20, cl 99, AGAP 15. CXR negative for acute findings. WAM score is 12. Hospitalist was contacted for admission. I spoke with hospitalist, Dr. Miller, and she has accepted pt. for admission. He has remained stable in the ER. - Diagnoses Differential Diagnosis/HQI/PQRI: Positive: Acute Psychosis, Alcohol Abuse, Alcohol Withdrawal, Anxiety, Delirium Tremens, Metabolic Disorder Provider Diagnoses: Alcohol withdrawal Discharge - Sign-Out/Discharge Documenting (check all that apply): Discharge/Admit/Transfer - Discharge Plan Condition: Stable Disposition: ADMITTED TO [facility] Referrals: Lencho Mart MD [Primary Care Provider] - - Billing Disposition and Condition Condition: STABLE Disposition: Admitted to [facility]
[2017-10-18] MEDS ORDERED: Thiamine TAB* 100 MG TAB PO SCH (09:00)
[2017-10-18] MEDS ORDERED: LORazepam INJ* 2 MG/ML 1 ML VIAL IV PUSH SCH (09:00)
[2017-10-18 09:05] LABS: EGFR Non-African American 122.7 (>60)
[2017-10-18 09:19] LABS: Urine Appearance Clear; Urine Blood Negative (Negative); Urine Color Straw; Urine Ketones Trace (Negative); Urine Protein Negative (Negative); Urine Specific Gravity 1.002 (1.010-1.030); Urine Urobilinogen Negative (Negative)
--- NOTE | 2017-10-18 09:42 | RAD ---
INDICATION: Chest pain COMPARISON: November 25, 2012 TECHNIQUE: An AP portable view obtained at 0822 hours is submitted. FINDINGS: Bones/Soft Tissues: There are no acute bony findings. Cardiomediastinal: The cardiomediastinal silhouette is normal. Lungs: There are no infiltrates. There is hyperinflation. Pleura: There are no pleural effusions. Other: None IMPRESSION: HYPERINFLATION. NO ACTIVE DISEASE.
[2017-10-18] MEDS ORDERED: Ondansetron ODT TAB* 4 MG PO PRN (10:35)
--- NOTE | 2017-10-18 13:02 | HP ---
CC: Dr. Mart * HISTORY AND PHYSICAL: DATE OF ADMISSION: 10/18/17 PRIMARY CARE PROVIDER: Dr. Mart. CHIEF COMPLAINT: Alcohol withdrawal. HISTORY OF PRESENT ILLNESS: Mr. Epps is a 56-year-old male who over the last 3 to 4 weeks relapsed into drinking approximately a quart of vodka daily. The patient states that he is wanting to quit. He had been cutting down his alcohol consumption over the last few days and his last drink was last evening at approximately 6 p.m. The patient states that in the past he has suffered from DTs. He has never had an alcohol withdrawal seizure. The patient this morning has noted some visual hallucinations and was very tremulous. PAST MEDICAL HISTORY: 1. Alcoholism. 2. History of back injury. 3. Inguinal hernia. PAST SURGICAL HISTORY: Tonsillectomy. MEDICATIONS: None. ALLERGIES: PENICILLIN. FAMILY HISTORY: Mom at the age of 86 of CHF. Dad of a complication from surgery, it is not clear what. He also was an alcoholic. SOCIAL HISTORY: The patient does not smoke tobacco. He does smoke marijuana especially when he is relapsing on alcohol. He is on disability from his spinal injury. He is not . He has no children. He is unable to choose a healthcare proxy at this time. REVIEW OF SYSTEMS: The patient complains of chills over the last couple of days. No anorexia. No chest pain. No edema. He admits to cough and shortness of breath especially when he smokes marijuana. He admits to nausea and vomiting over the last couple of days, loose stools on a daily basis x3 weeks. He also complains of a queasy feeling, upset stomach. No hematuria. No dysuria. No focal weakness or sensory loss. No sudden changes in vision. No dysphagia. No joint pains or muscle pains out of the ordinary. No rashes. He does admit to anxiety and depression. PHYSICAL EXAMINATION GENERAL: The patient is a well-developed middle-aged male, seen sitting in the stretcher, appearing to be in no acute distress but mildly tremulous. VITAL SIGNS: Blood pressure 124/93, pulse 87, respirations 18, temp 97.9, O2 sat 97% on room air. HEENT: Pupils are equal and round. Extraocular muscles are intact. Oropharynx is clear. Oral mucosa is moist. There is no submandibular, cervical , or supraclavicular adenopathy. Thyroid is not enlarged. No thyroid nodules noted. PULMONARY: Lungs are clear to auscultation bilaterally. CARDIAC: Normal S1, S2. Regular rate and rhythm. I do not appreciate any murmurs. ABDOMEN: Bowel sounds are present. Abdomen is soft, nontender, nondistended. MUSCULOSKELETAL: There is no cyanosis or clubbing of the digits. There is full active range of motion of all 4 extremities. SKIN: Warm and dry. There are no rashes. NEURO: Cranial nerves II through XII are grossly intact. Sensation is intact to light touch throughout. Strength is 5/5 and symmetric in both upper and lower extremities bilaterally. The patient is tremulous. PSYCH: The patient is alert. He is oriented x3. Affect appears appropriate. LABORATORY DATA: WBC 7.2, hemoglobin 15.2, hematocrit 43, platelets 182,000. Sodium 134, potassium 3.5, chloride 99, CO2 of 20, BUN 6, creatinine 0.67, glucose 110, calcium 9.5, magnesium 1.6. Bilirubin 1.1, AST 93, ALT 78, alk phos 52. Troponin 0. Albumin 4.2, amylase 56, lipase 67. Urinalysis is negative for signs of infection. Serum EtOH less than 10. ASSESSMENT AND PLAN: Mr. Epps is a 56-year-old male with a history of alcoholism, who presents to the emergency room in alcohol withdrawal after trying to stop drinking. 1. Alcohol withdrawal. At this point, the patient will be admitted to the hospital for the [facility] protocol. Ativan will be given orally as needed for signs of alcohol withdrawal. He will continue on normal saline at 100 mL per hour. He will continue on thiamine, multivitamin, and folic acid. Social work consult has been requested. 2. Alcoholic hepatitis. The patient has mild alcoholic hepatitis as evidenced by elevated AST, ALT, and bilirubin. These can be followed up. The patient denies any significant pain at this point. He does not appear jaundiced. 3. DVT prophylaxis. According to the Adult Thrombosis Prophylaxis Risk Factor Assessment Guide, the patient has a total risk factor score of 1 making him low risk. Ambulation will be utilized as DVT prophylaxis. 4. Code status is full. TIME SPENT: Sixty five minutes were spent admitting this patient. [id number]/[facility] #: [id number] [facility]
[2017-10-18] MEDS: LORazepam TAB(*) 1 MG PO PRN (15:20)
[2017-10-18] MEDS: Folic Acid TAB* 1 MG PO SCH (15:21)
[2017-10-18] MEDS: Multivitamins/Minerals TAB PO SCH (15:21)
[2017-10-18] MEDS: NS 0.9% 1000 ML* 1,000 ML IV SCH (16:47)
[2017-10-19] MEDS: LORazepam TAB(*) 1 MG PO PRN ×2 (00:13→12:52)
[2017-10-19] MEDS: NS 0.9% 1000 ML* 1,000 ML IV SCH (03:16)
[2017-10-19 07:08] LABS: EGFR Non-African American 131.7 (>60)
[2017-10-19] MEDS: Thiamine TAB* 100 MG TAB PO SCH (09:42)
[2017-10-19] MEDS: Folic Acid TAB* 1 MG PO SCH (09:42)
[2017-10-19] MEDS: Multivitamins/Minerals TAB PO SCH (09:42)
[2017-10-19] MEDS: Cholecalciferol TAB* 1000 UNITS PO SCH (12:51)
[2017-10-19] MEDS: OMEGA 3 FATTY ACIDS 1000 MG PO SCH (12:51)
[2017-10-19] MEDS: Ascorbic Acid TAB* 500 MG PO SCH (12:52)
[2017-10-20] MEDS: LORazepam TAB(*) 1 MG PO PRN (01:41)
[2017-10-20] MEDS: Cholecalciferol TAB* 1000 UNITS PO SCH (08:42)
[2017-10-20] MEDS: Folic Acid TAB* 1 MG PO SCH (08:42)
[2017-10-20] MEDS: Multivitamins/Minerals TAB PO SCH (08:42)
[2017-10-20] MEDS: Thiamine TAB* 100 MG TAB PO SCH (08:42)
[2017-10-20] MEDS: Ascorbic Acid TAB* 500 MG PO SCH (08:42)
--- NOTE | 2017-10-20 10:53 | PN ---
Subjective Date of Service: 10/20/17 Interval History: Patient seen and examined at bedside. Denies fever, chills, shortness of breath , chest discomfort, N/V/D. Pt reports some abdominal discomfort. Feels like he isn't quite ready for discharge today, feels like he had a set back with not knowing if he is able to get into therapy at discharge. Family History: Unchanged from Admission Social History: Unchanged from Admission Past Medical History: Unchanged from Admission Objective Active Medications: Acetaminophen (Tylenol Tab*) 650 mg PO Q4H PRN Reason: PAIN Ascorbic Acid (Vitamin C Tab*) 500 mg PO DAILY [facility] Cholecalciferol (Vitamin D Tab*) 1,000 units PO DAILY [facility] Fish Oil (Fish Oil (Nf)) 1,000 mg PO DAILY [facility]; Protocol Folic Acid (Folvite Tab*) 1 mg PO DAILY [facility] Sodium Chloride (Ns 0.9% 1000 Ml*) 1,000 mls @ 100 mls/hr IV PER RATE [facility] Lorazepam (Ativan Tab(*)) 0 mg PO Q2H PRN; Protocol Reason: alcohol withdrawal Multivitamins/Minerals (Theragran/Minerals Tab*) 1 tab PO DAILY [facility] Ondansetron HCl (Zofran Odt Tab*) 4 mg PO Q6H PRN Reason: NAUSEA Thiamine HCl (Vitamin B-1 Tab*) 100 mg PO DAILY [facility] Vital Signs - 8 hr 10/20/17 10/20/17 10/20/17 03:19 04:34 06:00 Temperature 98.1 F Pulse Rate 80 71 Respiratory 16 16 16 Rate Blood Pressure 135/71 123/77 (mmHg) O2 Sat by Pulse 98 100 Oximetry 10/20/17 08:15 Temperature 97.6 F Pulse Rate 77 Respiratory 18 Rate Blood Pressure 108/80 (mmHg) O2 Sat by Pulse 99 Oximetry Oxygen Devices in Use Now: None Appearance: NAD, sitting up on side of bed Ears/Nose/Mouth/Throat: Mucous Membranes Moist Respiratory: Symmetrical Chest Expansion and Respiratory Effort, Clear to Auscultation Cardiovascular: NL Sounds; No Murmurs; No JVD, RRR Abdominal: NL Sounds; No Tenderness; No Distention Extremities: No Edema, - - Slight bilateral UE tremors noted Skin: No Rash or Ulcers Neurological: Alert and Oriented x 3, NL Muscle Strength and Tone Lines/Tubes/Other Access: Clean, Dry and Intact Peripheral IV - site benign Nutrition: Taking PO's Result Diagrams: 10/18/17 08:28 10/19/17 06:37 Additional Lab and Data: . Assess/Plan/Problems-Billing Assessment: Mr. Epps is a 56 yo male with PMH significant for alcoholism, who presented to the emergency room for alcohol withdrawal. - Patient Problems (1) Alcohol withdrawal Code(s): F10.239 - ALCOHOL DEPENDENCE WITH WITHDRAWAL, UNSPECIFIED SNOMED Code (s): 522443394 Comment: - WAM score 1-10 - Tolerating PO food - Continue WAM protocol - Continue Thiamine, MVI, folic acid, Vitamin C, and PPI (2) Alcoholic hepatitis Code(s): K70.10 - ALCOHOLIC HEPATITIS WITHOUT ASCITES SNOMED Code(s): 381541216 Comment: - Elevated LFT's (AST. ALT, bilirubin) - No jaundice - Plan for outpatient follow-up (3) Chronic pain Code(s): G89.29 - OTHER CHRONIC PAIN SNOMED Code(s): 65744806 Comment: - Supportive care (4) DVT prophylaxis Code(s): BCU2701 - SNOMED Code(s): 347248242 Comment: - Low risk- ambulate (5) Full code status Code(s): Z78.9 - OTHER SPECIFIED HEALTH STATUS SNOMED Code(s): 627270772 Status and Disposition: Inpatient. Discharge to home when medically stable, suspect in 1-2 days Attending: Zach Durán
[2017-10-20] MEDS: OMEGA 3 FATTY ACIDS 1000 MG PO SCH (11:15)
[2017-10-20] MEDS ORDERED: Aspirin EC TAB* 325 MG PO ONE (11:24)
[2017-10-20] MEDS ORDERED: LORazepam TAB(*) 1 MG PO PRN (17:16)
--- NOTE | 2017-10-21 08:46 | PN ---
Subjective Date of Service: 10/21/17 Interval History: Patient seen and examined at bedside. Denies fever, chills, shortness of breath , chest discomfort, N/V/D. Pt is anxious to go home today because of his living situation (has friends staying at his house the use drugs and alcohol) and not having social work to help make sure he has an appointment with [facility] discharge. He feels more comfortable with being discharged in the morning. He also reports insomnia and would like a prescription for melatonin at discharge. Family History: Unchanged from Admission Social History: Unchanged from Admission Past Medical History: Unchanged from Admission Objective Active Medications: Acetaminophen (Tylenol Tab*) 650 mg PO Q4H PRN Reason: PAIN Ascorbic Acid (Vitamin C Tab*) 500 mg PO DAILY ANGELA Cholecalciferol (Vitamin D Tab*) 1,000 units PO DAILY ANGELA Fish Oil (Fish Oil (Nf)) 1,000 mg PO DAILY ANGELA; Protocol Folic Acid (Folvite Tab*) 1 mg PO DAILY ANGELA Lorazepam (Ativan Tab(*)) 0 mg PO Q4H PRN; Protocol Reason: alcohol withdrawal Multivitamins/Minerals (Theragran/Minerals Tab*) 1 tab PO DAILY ANGELA Ondansetron HCl (Zofran Odt Tab*) 4 mg PO Q6H PRN Reason: NAUSEA Thiamine HCl (Vitamin B-1 Tab*) 100 mg PO DAILY [facility] Vital Signs - 8 hr 10/21/17 10/21/17 02:58 04:19 Temperature 97.7 F Pulse Rate 73 Respiratory 18 17 Rate Blood Pressure 124/74 (mmHg) O2 Sat by Pulse 100 Oximetry Oxygen Devices in Use Now: None Appearance: NAD, sitting up in bed Ears/Nose/Mouth/Throat: Mucous Membranes Moist Respiratory: Symmetrical Chest Expansion and Respiratory Effort, Clear to Auscultation Cardiovascular: NL Sounds; No Murmurs; No JVD, RRR Abdominal: NL Sounds; No Tenderness; No Distention Extremities: No Edema Skin: No Rash or Ulcers Neurological: Alert and Oriented x 3, NL Muscle Strength and Tone Nutrition: Taking PO's Result Diagrams: 10/18/17 08:28 10/19/17 06:37 Additional Lab and Data: . Assess/Plan/Problems-Billing Assessment: Mr. Epps is a 56 yo male with PMH significant for alcoholism, who presented to the emergency room for alcohol withdrawal. - Patient Problems (1) Alcohol withdrawal Code(s): F10.239 - ALCOHOL DEPENDENCE WITH WITHDRAWAL, UNSPECIFIED SNOMED Code (s): 865194127 Comment: - WAM score 1-7 - Tolerating PO food - Continue WAM protocol - Continue Thiamine, MVI, folic acid, Vitamin C, and PPI (2) Alcoholic hepatitis Code(s): K70.10 - ALCOHOLIC HEPATITIS WITHOUT ASCITES SNOMED Code(s): 666004878 Comment: - Elevated LFT's (AST. ALT, bilirubin) - No jaundice - Plan for outpatient follow-up (3) Chronic pain Code(s): G89.29 - OTHER CHRONIC PAIN SNOMED Code(s): 07346107 Comment: - Supportive care (4) DVT prophylaxis Code(s): WYV0641 - SNOMED Code(s): 207871544 Comment: - Low risk- ambulate (5) Full code status Code(s): Z78.9 - OTHER SPECIFIED HEALTH STATUS SNOMED Code(s): 612771487 Status and Disposition: Inpatient. Discharge to home when medically stable, plan for later today or in the AM.
[2017-10-21] MEDS: Cholecalciferol TAB* 1000 UNITS PO SCH (09:59)
[2017-10-21] MEDS: Ascorbic Acid TAB* 500 MG PO SCH (09:59)
[2017-10-21] MEDS: OMEGA 3 FATTY ACIDS 1000 MG PO SCH (09:59)
[2017-10-21] MEDS: Folic Acid TAB* 1 MG PO SCH (09:59)
[2017-10-21] MEDS: Thiamine TAB* 100 MG TAB PO SCH (10:00)
[2017-10-21] MEDS: Multivitamins/Minerals TAB PO SCH (10:00)
[2017-10-21] MEDS ORDERED: MELATONIN 3 MG PO PRN (21:00)
[2017-10-22] MEDS: OMEGA 3 FATTY ACIDS 1000 MG PO SCH (09:00)
[2017-10-22] MEDS: Cholecalciferol TAB* 1000 UNITS PO SCH (09:01)
[2017-10-22] MEDS: Multivitamins/Minerals TAB PO SCH (09:01)
[2017-10-22] MEDS: Thiamine TAB* 100 MG TAB PO SCH (09:01)
[2017-10-22] MEDS: Folic Acid TAB* 1 MG PO SCH (09:01)
[2017-10-22] MEDS: Ascorbic Acid TAB* 500 MG PO SCH (09:01)
[2017-10-22 11:01] VITALS: BP 116/72
--- NOTE | 2017-10-22 11:31 | PN ---
Subjective Date of Service: 10/22/17 Interval History: Patient seen and examined at bedside. Denies fever, chills, shortness of breath , chest discomfort, N/V/D. Pt feels ready for discharge to home today. Family History: Unchanged from Admission Social History: Unchanged from Admission Past Medical History: Unchanged from Admission Objective Active Medications: Acetaminophen (Tylenol Tab*) 650 mg PO Q4H PRN Reason: PAIN Ascorbic Acid (Vitamin C Tab*) 500 mg PO DAILY [facility] Cholecalciferol (Vitamin D Tab*) 1,000 units PO DAILY ANGELA Fish Oil (Fish Oil (Nf)) 1,000 mg PO DAILY [facility]; Protocol Folic Acid (Folvite Tab*) 1 mg PO DAILY ANGELA Lorazepam (Ativan Tab(*)) 0 mg PO Q4H PRN; Protocol Reason: alcohol withdrawal Melatonin (Melatonin) 3 mg PO BEDTIME PRN Reason: INSOMNIA Multivitamins/Minerals (Theragran/Minerals Tab*) 1 tab PO DAILY [facility] Ondansetron HCl (Zofran Odt Tab*) 4 mg PO Q6H PRN Reason: NAUSEA Thiamine HCl (Vitamin B-1 Tab*) 100 mg PO DAILY [facility] Vital Signs - 8 hr 10/22/17 10/22/17 10/22/17 03:56 07:27 08:00 Temperature 97.6 F 97.9 F Pulse Rate 75 76 Respiratory 16 18 14 Rate Blood Pressure 133/76 116/72 (mmHg) O2 Sat by Pulse 100 100 Oximetry Oxygen Devices in Use Now: None Appearance: NAD, sitting up in bed Ears/Nose/Mouth/Throat: Mucous Membranes Moist Respiratory: Symmetrical Chest Expansion and Respiratory Effort, Clear to Auscultation Cardiovascular: NL Sounds; No Murmurs; No JVD, RRR Abdominal: NL Sounds; No Tenderness; No Distention Extremities: No Edema Skin: No Rash or Ulcers Neurological: Alert and Oriented x 3, NL Muscle Strength and Tone Lines/Tubes/Other Access: Clean, Dry and Intact Peripheral IV - site benign Nutrition: Taking PO's Result Diagrams: 10/18/17 08:28 10/19/17 06:37 Additional Lab and Data: . Assess/Plan/Problems-Billing Assessment: Mr. Epps is a 56 yo male with PMH significant for alcoholism, who presented to the emergency room for alcohol withdrawal. - Patient Problems (1) Alcohol withdrawal Code(s): F10.239 - ALCOHOL DEPENDENCE WITH WITHDRAWAL, UNSPECIFIED SNOMED Code (s): 991419273 Comment: - WAM score 0-1 - Tolerating PO food - Continue Thiamine, MVI, folic acid, Vitamin C, and PPI (2) Alcoholic hepatitis Code(s): K70.10 - ALCOHOLIC HEPATITIS WITHOUT ASCITES SNOMED Code(s): 359882942 Comment: - Elevated LFT's (AST. ALT, bilirubin) - No jaundice - Plan for outpatient follow-up (3) Chronic pain Code(s): G89.29 - OTHER CHRONIC PAIN SNOMED Code(s): 98874212 Comment: - Supportive care (4) DVT prophylaxis Code(s): FDW2650 - SNOMED Code(s): 147796538 Comment: - Low risk- ambulate (5) Full code status Code(s): Z78.9 - OTHER SPECIFIED HEALTH STATUS SNOMED Code(s): 284583288 Status and Disposition: Inpatient. Stable for discharge to home today.
--- NOTE | 2017-10-23 14:32 | DS ---
CC: Lencho Mart MD * DISCHARGE SUMMARY: DATE OF ADMISSION: 10/18/17 DATE OF DISCHARGE: 10/22/17 ATTENDING PHYSICIAN: Sven Montalvo M.D. * (dictated by Nerissa Solorzano NP). PRIMARY CARE PROVIDER: Lencho Mart MD. PRIMARY DIAGNOSES: 1. Alcohol withdrawal. 2. Alcoholism. 3. Alcoholic hepatitis. STUDIES WHILE IN THE HOSPITAL: Chest x-ray on 10/18/17. Radiologist's impression: Hyperinflation. No active disease. DISCHARGE MEDICATIONS: New home medication: 1. Ascorbic acid 500 mg oral daily. 2. Vitamin D 1000 units oral daily. 3. Folic acid 1 mg oral daily. 4. Multivitamin 1 tablet oral daily. 5. Thiamine 100 mg oral daily. 6. Melatonin 3 mg oral daily at bedtime as needed for insomnia. HISTORY OF PRESENT ILLNESS/HOSPITAL COURSE: Mr. Epps is a 56-year-old male with past medical history for alcoholism, history of back injury, who had been sober for quite some time, but reports approximately 3 to 4 weeks ago relapsing into drinking approximately a quart of vodka daily. The patient was wanting to quit and had been cutting down his alcohol consumption over the last few days, trying to wean himself off. The patient had suffered from DTs in the past, but never alcohol withdrawal seizures. He developed some visual hallucinations and tremors and decided to come to the emergency room for assistance with alcohol detox. While in the hospital, the patient detoxed from his alcohol. He was seen in consultation by social work who assisted him with setting up outside support. The patient was noted to have elevated AST, ALT and bilirubin showing mild alcoholic hepatitis. The patient had no abdominal pain, he was not jaundiced. It was felt this could be followed up outpatient. Mr. Epps is stable for discharge today. Vital signs are as follows: Temperature 97.9, heart rate 76, respiratory rate 18, O2 sat 100% on room air, blood pressure 116/72. DISCHARGE PLAN: Mr. Epps will be discharged to home. Activity as tolerated. In regard to his alcohol withdrawal, he has been encouraged to stop drinking alcohol. He has been continued on vitamin C, vitamin D, folic acid, multivitamin , and thiamine. The patient was complaining of insomnia during his stay, so it was recommended that he take melatonin 3 mg oral daily at bedtime as needed for insomnia. The patient is to [facility] to continue his [facility]. He has a followup appointment with his primary care provider, Dr. Lencho Mart on 10/25/17 at 2:10 p.m. POINTS FOR FOLLOWUP: Please continue to follow up the patient's alcoholic hepatitis. The patient has been asked to return to the emergency room for any chest pain or shortness of breath. This is a summarized report of a complex medical history and hospital stay. For further details, please see the entire medical record. TIME SPENT: Time for this discharge was approximately 50 minutes; greater than half of that was spent with the patient discussing discharge plans and instructions. CONDITION ON DISCHARGE: Stable. NERISSA HILLIARD, JASMIN [id number]/[facility] #: [id number] MTDJadiel
== END 2017-10-22 13:15 | disposition home or self-care (01) | DRG 897 ==
LOC: ED 07:48 → MEDTELE 10:32 → MED 10-19 07:42
PROVIDERS: ADMIT Hospitalist; ATTEND Internal Medicine
DX: F10.239 Alcohol dependence with withdrawal, unspecified (principal); G43.909 Migraine, unspecified, not intractable, without status migrainosus; M54.30 Sciatica, unspecified side; F32.9 Major depressive disorder, single episode, unspecified; F41.9 Anxiety disorder, unspecified; K40.90 Unilateral inguinal hernia, without obstruction or gangrene, not specified as recurrent; F12.90 Cannabis use, unspecified, uncomplicated; K70.10 Alcoholic hepatitis without ascites; G47.00 Insomnia, unspecified; G89.29 Other chronic pain; Y90.9 Presence of alcohol in blood, level not specified; Z88.0 Allergy status to penicillin; Z87.891 Personal history of nicotine dependence; Z82.49 Family history of ischemic heart disease and other diseases of the circulatory system; Z81.1 Family history of alcohol abuse and dependence
CPT/HCPCS: 36415; 71045; 80048; 80053; 80320; 81003; 82150; 83690; 83735; 84484; 85025; 93005; 99283; A9270-GY; G0480; J2060; J3411

== ENCOUNTER 2018-01-15 18:52 | Inpatient (IN) | payer MEDICARE, MEDICAID ==
[2018-01-15] MEDS ORDERED: NS 0.9% 1000 ML* 1,000 ML IV ONE (20:10)
[2018-01-15] MEDS ORDERED: Thiamine IV* 100 MG/ML 2 ML VIAL IV ONE (20:11)
[2018-01-15 20:37] LABS: ABS Basophils 0.1 10^3/ul (0-0.2); ABS Eosinophils 0.1 10^3/ul (0-0.6); ABS Lymphocytes 3.8 10^3/ul (1.0-4.8); ABS Monocytes 0.8 10^3/ul (0-0.8); ABS Neutrophils 2.8 10^3/ul (1.5-7.7); ABS Nucleated RBC 0 10^3/ul; Eosinophil % 0.7 % (0-6); Hematocrit 45 % (42-52); Hemoglobin 15.4 g/dl (14.0-18.0); Lymphocyte % 50.8 % (25-47); Mean Corpuscular HGB Conc 34 g/dl (31-36); Mean Corpuscular Hemoglobin 34 pg (27-31); Mean Corpuscular Volume 98 fL (80-94); Mean Platelet Volume 7.9 um3 (7.4-10.4); Nucleated Red Blood Cells % 0.2; Platelet Count 191 10^3/ul (150-450); Red Blood Count 4.56 10^6/ul (4.00-5.40); Red Cell Distribution Width 15 % (10.5-15); White Blood Count 7.5 10^3/ul (3.5-10.8)
--- NOTE | 2018-01-15 20:45 | ED ---
Substance Abuse/Use - HPI Summary HPI Summary: This patient is a 57 year old M presenting to [facility] with a chief complaint of tremors since 12:00 today. The patient came in today for an EtOH detox request. He notes that he typically drinks 1 quart of vodka per day. Patient reports he had his last drink before 12:00 today and he had beer. The patient notes he hasn t slept well in a while. The patient rates the pain 3/10 in severity. Symptoms aggravated by nothing. Symptoms alleviated by nothing. Patient reports nausea, vomiting, dizziness, head congestion, numbness sensation in his head, lights seeming brighter than usual. Patient reports that [employer] he ate and experienced hot and cold flashes. Patient notes hallucinations like the floor looking wavy. Patient denies pruritus or tingling. When asked the date, the patient says its sometime in December but he has lost track of the days. The patient says he really wants to quit drinking EtOH. - History Of Current Complaint Chief Complaint: EDDetoxRequest Stated Complaint: ALCOHOL WITHDRAWL Time Seen by Provider: 01/15/18 20:28 Hx Obtained From: Patient Onset/Duration of Drug/ETOH Abuse: Days Ingestion History: Type/Name Of Drug - EtOH, Approximate Time Of Ingestion - 12: 00 Overdose Characteristics: Oral Timing Of Abuse: Daily Severity Initially: Mild Severity Currently: Mild Character: Other - tremulous Aggravating Factor(s): Nothing Alleviating Factor(s): Nothing Associated Signs And Symptoms: Hallucinating, Sleep Disturbance, Diaphoretic, Tremulous, Nausea, Vomiting Related Hx: Drug/Alcohol Last Used @ - 12:00, Prior Drug Abuse Counseling/ Admission - Allergies/Home Medications Allergies/Adverse Reactions: Allergies Allergy/AdvReac Type Severity Reaction Status Date / Time Penicillins Allergy Intermediate Rash Verified 01/15/18 20:17 Home Medications: Home Medications Naproxen 500 mg tab 500 mg pe PO Q6HR PRN 01/15/18 [History Confirmed 01/15/18] PMH/Surg Hx/FS Hx/Imm Hx Endocrine/Hematology History: Denies: Hx Anticoagulant Therapy GI History: Reports: Other GI Disorders - Lower inguinal hernia Musculoskeletal History: Reports: Hx Back Problems - ruptured disc Denies: Hx Rheumatoid Arthritis, Hx Osteoporosis Sensory History: Reports: Hx Contacts or Glasses Denies: Hx Hearing Aid Opthamlomology History: Reports: Hx Contacts or Glasses Neurological History: Reports: Hx Migraine, Hx Spinal Cord Injury, Other Neuro Impairments/Disorders - Sciatica Psychiatric History: Reports: Hx Anxiety, Hx Depression, Hx Inpatient Treatment - [facility], Hx [facility], Hx of Violent Episodes Against Others , Hx Substance Abuse - alcoholism Denies: Hx Attention Deficit Hyperactivity Disorder, Hx Eating Disorder, Hx Panic Disorder, Hx Post Traumatic Stress Disorder, Hx Schizophrenia, Hx Bipolar Disorder, Hx Suicide Attempt, Other Psychiatric Issues/Disorders - Surgical History Surgery Procedure, Year, and Place: Tonsillectomy, dental Hx Anesthesia Reactions: No - Immunization History Date of Tetanus Vaccine: Unk Date of Influenza Vaccine: None Infectious Disease History: No Infectious Disease History: Denies: History Other Infectious Disease, Traveled Outside the [place] in Last 30 Days - Family History Known Family History: Positive: None - Patient denies relevant FHx Negative: Cardiac Disease, Hypertension, Diabetes - Social History Alcohol Use: Daily Alcohol Amount: quart of vodka a day Hx Substance Use: Yes Substance Use Type: Reports: Marijuana Substance Use Comment - Amount & Last Used: 10/17/17 Hx Tobacco Use: Yes Smoking Status (MU): Former Smoker Type: Cigarettes Have You Smoked in the Last Year: Yes Review of Systems Positive: Chills Positive: Photophobia Negative: Cough Positive: Vomiting, Nausea Neurological: Other - dizziness Positive: Headache - numbness sensation, head congestion All Other Systems Reviewed And Are Negative: Yes Physical Exam - Summary Physical Exam Summary: Appearance: The patient is well-nourished in no acute distress and in no acute pain. Patient is tremulous. Skin: The skin is warm and dry and skin color reflects adequate perfusion. Patient is mildly diaphoretic. HEENT: The head is normocephalic and atraumatic. The pupils are equal and reactive. The conjunctivae are clear and without drainage. Nares are patent and without drainage. Mouth reveals moist mucous membranes and the throat is without erythema and exudate. The external ears are intact. The ear canals are patent and without drainage. The tympanic membranes are intact. Neck: The neck is supple with full range of motion and non-tender. There are no carotid bruits. There is no neck vein distension. Respiratory: Chest is non-tender. Lungs are clear to auscultation and breath sounds are symmetrical and equal. Cardiovascular: Heart is regular rate and rhythm. There is no murmur or rub auscultated. There is no peripheral edema and pulses are symmetrical and equal. Abdomen: The abdomen is soft and non-tender. There are normal bowel sounds heard in all four quadrants and there is no organomegaly palpated. Musculoskeletal: There is no back tenderness noted. Extremities are non-tender with full range of motion. There is good capillary refill. There is no peripheral edema or calf tenderness elicited. Neurological: Patient is alert and oriented to person, place and time. The patient has symmetrical motor strength in all four extremities. Cranial nerves are grossly intact. Deep tendon reflexes are symmetrical and equal in all four extremities. Psychiatric: The patient has an appropriate affect and does not exhibit any anxiety or depression. Patient perseverates. CIWA score of 29 Triage Information Reviewed: Yes Vital Signs On Initial Exam: Initial Vitals Temp Pulse Resp BP Pulse Ox 98.1 F 100 20 161/69 95 01/15/18 18:54 01/15/18 18:54 01/15/18 18:54 01/15/18 18:54 01/15/18 18:54 Vital Signs Reviewed: Yes Diagnostics - Vital Signs Vital Signs Temp Pulse Resp BP Pulse Ox 01/15/18 18:54 98.1 F 100 20 161/69 95 - Laboratory Result Diagrams: 01/15/18 20:24 01/15/18 20:24 Lab Statement: Any lab studies that have been ordered have been reviewed, and results considered in the medical decision making process. Course/Dx - Course Course Of Treatment: Mr. Oliveira presented saying he wants alcohol detox and that he is symptomatic with withdrawal. His CIWA score was 29 and he was given a milligram of Ativan by mouth. His initial alcohol level came back at 220 and he is currently awaiting sobering to confirm that he actually wants detox. - Diagnoses Provider Diagnoses: Alcohol intoxication Discharge - Sign-Out/Discharge Documenting (check all that apply): Sign-Out Patient - upon provider shift change Signing out patient TO: Rober Hess Receiving patient FROM: Nabeel Singh - Discharge Plan Condition: Stable Referrals: Lencho Mart MD [Primary Care Provider] - - Billing Disposition and Condition Condition: STABLE - Attestation Statements Document Initiated by Scribe: Yes Documenting Scribe: Amber [place] Provider For Whom Scribe is Documenting (Include Credential): Nabeel Singh MD Scribe Attestation: IAmber, scribed for Nabeel Singh MD on 01/15/18 at 2155. Scribe Documentation Reviewed: Yes Provider Attestation: The documentation as recorded by the scribe, Amber Mcdonald accurately reflects the service I personally performed and the decisions made by me, Nabeel Singh MD
[2018-01-15] MEDS ORDERED: LORazepam TAB(*) 1 MG PO ONE (20:50)
[2018-01-15 20:55] LABS: EGFR Non-African American 122.3 (>60)
[2018-01-16] MEDS ORDERED: LORazepam INJ* 2 MG/ML 1 ML VIAL IV PUSH ONE (03:20)
--- NOTE | 2018-01-16 03:23 | ED ---
Progress - Progress Note Progress Note: Receiving sign out from Dr. Singh. Patient sobered in the ER and started to develop anxiety, tremor, tachycardia and restlessness. He is admitted for alcohol withdrawal syndrome and has been treated with Ativan. Re-Evaluation - Re-Evaluation First Eval Re-Evaluation Time: 03:19 Change: Unchanged Comment: Pt is now sober, tachycardic, tachypneic, anxious, and tremorous. Course/Dx - Diagnoses Provider Diagnoses: Alcoholism, Alcohol withdrawal - Provider Notifications Discussed Care Of Patient With: Maria Esther Greer Time Discussed With Above Provider: 03:21 Instructed by Provider To: Admit As Inpatient Discharge - Sign-Out/Discharge Documenting (check all that apply): Patient Departure - Admit, Receiving Sign- Out Receiving patient FROM: Nabeel Singh - Discharge Plan Condition: Fair Disposition: ADMITTED TO [facility] - Billing Disposition and Condition Condition: FAIR Disposition: Admitted to [facility] - Attestation Statements Document Initiated by Scribe: Yes Documenting Scribe: Autumn Hoff Provider For Whom Juan is Documenting (Include Credential): Rober Hess MD Scribe Attestation: Autumn Lafleur, scribed for Rober Hess MD on 01/16/18 at 0407. Scribe Documentation Reviewed: Yes Provider Attestation: The documentation as recorded by the Autumn linn accurately reflects the service I personally performed and the decisions made by me, Rober Hess MD
[2018-01-16] MEDS ORDERED: Acetaminophen TAB* 325 MG PO PRN (03:48)
[2018-01-16] MEDS ORDERED: Al Hydrox/Mg Hydrox/Simet LIQ* 30 ML UDC PO PRN (03:48)
[2018-01-16] MEDS ORDERED: NS 0.9% 1000 ML* 1,000 ML IV SCH (04:00)
[2018-01-16] MEDS: Heparin VIAL(*) 5000 UNITS/ML VIAL (FIVE THOUSAND) SUBCUT SCH ×3 (05:29→20:10)
[2018-01-16] MEDS: Omeprazole CAP* 20 MG PO SCH (05:30)
--- NOTE | 2018-01-16 06:15 | HP ---
CC: Lencho Mart MD * HISTORY AND PHYSICAL: DATE OF ADMISSION: 01/16/18 TIME OF EVALUATION: 0400. PRIMARY CARE PHYSICIAN: Lencho Mart MD CHIEF COMPLAINT: Alcohol withdrawal. HISTORY OF PRESENT ILLNESS: This is a 57-year-old male with past medical history of alcohol abuse who presented to the emergency room with alcohol withdrawal symptoms. The patient states he has been on and off relapsing for the past few months. He thought he can manage on his own. His last drink was noon on 01/15/18 when he began shaking, palpitations, hot and cold flashes, nausea, and hallucinating where he felt like the floor was moving. He also had some lightheadedness. He states he drinks 1 quart of vodka per day. He has some epigastric pain and shortness of breath. He has had a 15 to 20 pound weight loss over the past 6 months. He is interested in rehab. No urinary symptoms. No diarrhea. He states he started drinking when he was 13. He was sober for 8 years at age 18. He has been replacing. He relapsed back in November and has been having issues since then. Otherwise, review of systems is negative. In the emergency room, the patient was scored on the CIWA scale of 29. He was given a total of 3 mg of Ativan, referred to the hospitalist service for further evaluation. PAST MEDICAL HISTORY: 1. History of alcohol abuse. 2. History of chronic back pain. 3. History of inguinal hernia. PAST SURGICAL HISTORY: Tonsillectomy. MEDICATIONS: Naproxen. ALLERGIES: PENICILLIN, he develops a rash. FAMILY HISTORY: Mother at age 86 from heart failure. Father from complications from surgery, who was also an alcoholic. SOCIAL HISTORY: The patient lives at home alone. He is on disability. As mentioned, he drinks a quart of vodka a day. He smokes marijuana daily, which correlates with drinking and also chews tobacco. He does not have healthcare proxy. He is not and has no children. He needs to choose his healthcare proxy at some point. Code status, full code. REVIEW OF SYSTEMS: A 14-point review of systems as mentioned in the HPI, otherwise negative. PHYSICAL EXAMINATION GENERAL: In no acute distress. He is mildly tremulous. VITAL SIGNS: Temp 98.1, pulse rate 94, respiratory rate 20, oxygen saturation 97 % on room air, blood pressure 155/93. HEENT: Head: Normocephalic. Pupils are equal and reactive. Mildly injected conjunctivae. Oropharynx: Mucous membranes are moist. NECK: Supple. No lymphadenopathy. RESPIRATORY: Clear to auscultation. No wheezes, rhonchi, or rales. CARDIAC: He does have regular rate and rhythm with ectopic beats. Soft systolic murmur heard throughout. ABDOMEN: Soft, some mild tenderness in the epigastric region. No rebound. No guarding. EXTREMITIES: No clubbing, cyanosis, or edema. +1 DPs. NEUROLOGICAL: Alert and oriented x3. No gross focal neurologic deficits. He is tremulous. LABORATORY DATA: White count 7.5, hemoglobin 15.4, hematocrit 45, platelets 191. Sodium 137, potassium 3.8, chloride 102, bicarb 19, anion gap 16, BUN 6, creatinine 0.67. Lipase 111. UA is unremarkable. Alcohol is 228. ASSESSMENT: This is a 57-year-old male with past medical history of alcohol abuse who presents to the emergency room with alcohol withdrawal symptoms. 1. Alcohol withdrawal. Assessment: The patient with alcohol withdrawal. His last drink was yesterday around 1 p.m. He drinks a quart of vodka per day and he is interested in a rehab. He also has chest pain or epigastric pain. I suspect this is gastritis related to his drinking. He also takes naproxen as needed. He does have an elevated lipase, but I suspect that this is not related to pancreatitis, his abdominal pain. I also do not think this is cardiac either. Plan: We will admit him [address] in telemetry. We will check a troponin, EKG and trend his troponin. We will start him on a PPI. We will also place him on [place] protocol, social work, thiamine, folic acid, multivitamin and IV fluids. 2. FEN. Regular diet and IV fluids. 3. DVT prophylaxis. The patient scores moderate risk. We will place him on heparin subcu t.i.d. 4. Code status. Full code. 5. Disposition. Pending social work evaluation for rehab. PATIENT TIME: Greater than 40 minutes were spent doing the history and physical , more than half the time was spent in direct patient contact. [id number]/[facility] #: [id number] [facility]
[2018-01-16] MEDS: LORazepam INJ* 2 MG/ML 1 ML VIAL IV PUSH SCH ×6 (07:29→23:09)
[2018-01-16] MEDS: Thiamine TAB* 100 MG TAB PO SCH (09:57)
[2018-01-16] MEDS: Folic Acid TAB* 1 MG PO SCH (09:57)
[2018-01-16] MEDS: Multivitamins/Minerals TAB PO SCH (09:58)
--- NOTE | 2018-01-16 14:28 | PN ---
Subjective Date of Service: 01/16/18 Interval History: Patient states he is feeling better after the ativan. Patient states he has been walking around but feels tremulous, unsteady. Patient states he has been having palpitations and anxiety. Patient states he has diarrhea when he drinks but has not had a BM since he came into the hospital. Patient also endorses N/ V. Patient denies F/C, CP, SOB, presyncope, or other pain. Patient is interested in Alcohol rehab. Family History: Unchanged from Admission Social History: Unchanged from Admission Past Medical History: Unchanged from Admission Objective Active Medications: Acetaminophen (Tylenol Tab*) 650 mg PO Q4H PRN PRN Reason: FEVER/PAIN Al Hydrox/Mg Hydrox/Simethicone (Maalox Plus*) 30 ml PO Q6H PRN PRN Reason: INDIGESTION Folic Acid (Folvite Tab*) 1 mg PO DAILY [facility] Last Admin: 01/16/18 09:57 Dose: 1 mg Heparin Sodium (Porcine) (Heparin Vial(*)) 5,000 units SUBCUT Q8HR [facility] Last Admin: 01/16/18 05:29 Dose: Not Given Lorazepam (Ativan Inj*) 0 - 3 mg IV PUSH .PER [facility] PROTOCOL [facility]; Protocol Last Admin: 01/16/18 11:24 Dose: 2 mg Multivitamins/Minerals (Theragran/Minerals Tab*) 1 tab PO DAILY [facility] Last Admin: 01/16/18 09:58 Dose: 1 tab Omeprazole (Prilosec Cap*) 20 mg PO 0600 [facility] Last Admin: 01/16/18 05:30 Dose: Not Given Ondansetron HCl (Zofran Inj*) 4 mg IV Q4H PRN PRN Reason: NAUSEA/VOMITING Thiamine HCl (Vitamin B-1 Tab*) 100 mg PO DAILY [facility] Last Admin: 01/16/18 09:57 Dose: 100 mg Vital Signs - 8 hr 01/16/18 01/16/18 01/16/18 07:29 08:15 08:52 Temperature 98.2 F Pulse Rate 104 Respiratory 18 18 18 Rate Blood Pressure 134/81 (mmHg) O2 Sat by Pulse 99 Oximetry 01/16/18 01/16/18 01/16/18 09:21 10:24 11:06 Temperature 97.7 F Pulse Rate 101 Respiratory 18 20 20 Rate Blood Pressure 150/93 (mmHg) O2 Sat by Pulse 95 Oximetry 01/16/18 01/16/18 01/16/18 11:24 12:54 13:35 Temperature 98.2 F 97.7 F Pulse Rate 83 84 Respiratory 20 23 14 Rate Blood Pressure 130/85 135/88 (mmHg) O2 Sat by Pulse 99 100 Oximetry Oxygen Devices in Use Now: None Appearance: Patient is a 57yo male who appears stated age and is sitting in the bed in [facility]. Eyes: No Scleral Icterus, PERRLA Ears/Nose/Mouth/Throat: NL Teeth, Lips, Gums, Clear Oropharnyx, Mucous Membranes Moist Neck: NL Appearance and Movements; NL JVP, Trachea Midline Respiratory: Symmetrical Chest Expansion and Respiratory Effort, Clear to Auscultation Cardiovascular: NL Sounds; No Murmurs; No JVD, No Edema, - - Tachycardic. Abdominal: NL Sounds; No Tenderness; No Distention, No Hepatosplenomegaly Lymphatic: No Cervical Adenopathy Extremities: No Edema, No Clubbing, Cyanosis Skin: No Rash or Ulcers, No Nodules or Sclerosis Neurological: Alert and Oriented x 3, NL Sensation, NL Muscle Strength and Tone , - - Tremor. Result Diagrams: 01/15/18 20:24 01/15/18 20:24 Assess/Plan/Problems-Billing Assessment: Patient is a 57yo male with a PMH for recurrent alcohol abuse with previous hospitalizations for alcohol withdrawal management and alcoholic hepatitis who is currently admitted on the [facility] protocol. - Patient Problems (1) Alcohol withdrawal Current Visit: No Status: Acute Priority: High Code(s): F10.239 - ALCOHOL DEPENDENCE WITH WITHDRAWAL, UNSPECIFIED SNOMED Code(s): 735143720 Comment: - WAM score elevated - 6mg ativan today. - Tolerating PO food - Continue Thiamine, MVI, folic acid - Alcohol level still elevated at admission, possibly will still be getting worse. - Interested in alcohol rehab, social work consult appreciated. - Had a previous 8 year stretch of sobriety. (2) Alcoholic hepatitis Current Visit: No Status: Chronic Code(s): K70.10 - ALCOHOLIC HEPATITIS WITHOUT ASCITES SNOMED Code(s): 752218873 Comment: - Elevated AST - No jaundice - Will order INR for AM to assess for appropriateness of Steroid treatment. (3) Chronic pain Current Visit: No Status: Chronic Code(s): G89.29 - OTHER CHRONIC PAIN SNOMED Code(s): 92979452 Comment: - Supportive care (4) DVT prophylaxis Current Visit: No Status: Acute Code(s): PFL7482 - SNOMED Code(s): 233156735 Comment: - Low risk- ambulate (5) Full code status Current Visit: No Status: Acute Code(s): Z78.9 - OTHER SPECIFIED HEALTH STATUS SNOMED Code(s): 762623784
[2018-01-17] MEDS: Heparin VIAL(*) 5000 UNITS/ML VIAL (FIVE THOUSAND) SUBCUT SCH ×3 (05:35→22:57)
[2018-01-17] MEDS: Omeprazole CAP* 20 MG PO SCH (05:36)
[2018-01-17 07:03] LABS: ABS Basophils 0 10^3/ul (0-0.2); ABS Eosinophils 0.2 10^3/ul (0-0.6); ABS Monocytes 0.8 10^3/ul (0-0.8); ABS Neutrophils 3.9 10^3/ul (1.5-7.7); ABS Nucleated RBC 0 10^3/ul; Eosinophil % 2.5 % (0-6); Hematocrit 40 % (42-52); Hemoglobin 13.5 g/dl (14.0-18.0); Lymphocyte % 28.9 % (25-47); Mean Corpuscular HGB Conc 34 g/dl (31-36); Mean Corpuscular Hemoglobin 34 pg (27-31); Mean Corpuscular Volume 98 fL (80-94); Mean Platelet Volume 8.7 um3 (7.4-10.4); Nucleated Red Blood Cells % 0.1; Platelet Count 155 10^3/ul (150-450); Red Blood Count 4.02 10^6/ul (4.00-5.40); Red Cell Distribution Width 15 % (10.5-15)
[2018-01-17 07:33] LABS: EGFR Non-African American 141.6 (>60)
[2018-01-17] MEDS: LORazepam INJ* 2 MG/ML 1 ML VIAL IV PUSH SCH ×8 (08:25→22:57)
[2018-01-17] MEDS: Thiamine TAB* 100 MG TAB PO SCH (08:26)
[2018-01-17] MEDS: Multivitamins/Minerals TAB PO SCH (08:26)
[2018-01-17] MEDS: Folic Acid TAB* 1 MG PO SCH (08:26)
[2018-01-17] MEDS: Ascorbic Acid TAB* 500 MG PO SCH (11:25)
[2018-01-17] MEDS: CMC:OMEGA-3 FATTY ACIDS (NF) 1,000 MG CAP PO SCH (11:25)
[2018-01-17] MEDS: Cholecalciferol TAB* 400 UNIT PO SCH (11:25)
--- NOTE | 2018-01-17 15:38 | PN ---
Subjective Date of Service: 01/17/18 Interval History: Patient is feeling better but is still very tremulous and anxious outwardly. Patient feels stable on his feet but still has a wide based gait. Patient denies F/C, N/V, abdominal pain, patient is having intermittent loose stools after taking prune juice. Patient denies CP, SOB. Patient is still very interested in inpatient rehab. Family History: Unchanged from Admission Social History: Unchanged from Admission Past Medical History: Unchanged from Admission Objective Active Medications: Acetaminophen (Tylenol Tab*) 650 mg PO Q4H PRN PRN Reason: FEVER/PAIN Al Hydrox/Mg Hydrox/Simethicone (Maalox Plus*) 30 ml PO Q6H PRN PRN Reason: INDIGESTION Last Admin: 01/16/18 16:45 Dose: 30 ml Ascorbic Acid (Vitamin C Tab*) 500 mg PO DAILY [facility] Cholecalciferol (Vitamin D Tab*) 400 unit PO DAILY [facility] Fish Oil (Fish Oil (Nf)) 1,000 mg PO DAILY [facility]; Protocol Folic Acid (Folvite Tab*) 1 mg PO DAILY [facility] Last Admin: 01/17/18 08:26 Dose: 1 mg Heparin Sodium (Porcine) (Heparin Vial(*)) 5,000 units SUBCUT Q8HR [facility] Last Admin: 01/17/18 05:35 Dose: Not Given Lorazepam (Ativan Inj*) 0 - 8 mg IV PUSH .PER [facility] PROTOCOL [facility]; Protocol Last Admin: 01/17/18 08:25 Dose: 2 mg Multivitamins/Minerals (Theragran/Minerals Tab*) 1 tab PO DAILY [facility] Last Admin: 01/17/18 08:26 Dose: 1 tab Omeprazole (Prilosec Cap*) 20 mg PO 0600 [facility] Last Admin: 01/17/18 05:36 Dose: Not Given Ondansetron HCl (Zofran Inj*) 4 mg IV Q4H PRN PRN Reason: NAUSEA/VOMITING Thiamine HCl (Vitamin B-1 Tab*) 100 mg PO DAILY [facility] Last Admin: 01/17/18 08:26 Dose: 100 mg Vital Signs - 8 hr 01/17/18 01/17/18 01/17/18 07:46 08:00 08:10 Temperature 97.5 F 97.5 F Pulse Rate 89 89 Respiratory 18 18 18 Rate Blood Pressure 129/74 129/74 (mmHg) O2 Sat by Pulse 100 100 Oximetry 01/17/18 01/17/18 08:25 09:25 Temperature Pulse Rate Respiratory 18 18 Rate Blood Pressure (mmHg) O2 Sat by Pulse Oximetry Oxygen Devices in Use Now: None Appearance: Patient is a 57yo male who appears stated age and is sitting in the bed in [facility]. Eyes: No Scleral Icterus, PERRLA Ears/Nose/Mouth/Throat: NL Teeth, Lips, Gums, Clear Oropharnyx, Mucous Membranes Moist Neck: NL Appearance and Movements; NL JVP, Trachea Midline Respiratory: Symmetrical Chest Expansion and Respiratory Effort, Clear to Auscultation Cardiovascular: NL Sounds; No Murmurs; No JVD, RRR, No Edema Abdominal: NL Sounds; No Tenderness; No Distention, No Hepatosplenomegaly Lymphatic: No Cervical Adenopathy Extremities: No Edema, No Clubbing, Cyanosis Skin: No Rash or Ulcers, No Nodules or Sclerosis Neurological: Alert and Oriented x 3, NL Sensation, NL Muscle Strength and Tone , - - Wide Based Gait. Fine tremor. Result Diagrams: 01/17/18 06:36 01/17/18 06:36 Assess/Plan/Problems-Billing Assessment: Patient is a 57yo male with a PMH for recurrent alcohol abuse with previous hospitalizations for alcohol withdrawal management and alcoholic hepatitis who is currently admitted on the [facility] protocol. - Patient Problems (1) Alcohol withdrawal Current Visit: No Status: Acute Priority: High Code(s): F10.239 - ALCOHOL DEPENDENCE WITH WITHDRAWAL, UNSPECIFIED SNOMED Code(s): 379167831 Comment: - WAM score elevated. Continue at current doses - Tolerating PO food - Continue Thiamine, MVI, folic acid - Alcohol level still elevated at admission, possibly will still be getting worse. - Interested in alcohol rehab, social work consult appreciated. - Had a previous 8 year stretch of sobriety. (2) Alcoholic hepatitis Current Visit: No Status: Chronic Code(s): K70.10 - ALCOHOLIC HEPATITIS WITHOUT ASCITES SNOMED Code(s): 496200920 Comment: - Elevated AST/ALT - No jaundice - Will order INR for AM to assess for appropriateness of Steroid treatment. - Will need outpatient follow up to assess for cirrhosis. (3) Chronic pain Current Visit: No Status: Chronic Code(s): G89.29 - OTHER CHRONIC PAIN SNOMED Code(s): 36035482 Comment: - Supportive care (4) DVT prophylaxis Current Visit: No Status: Acute Code(s): RPI7327 - SNOMED Code(s): 360158028 Comment: - Heparin SubQ. (5) Full code status Current Visit: No Status: Acute Code(s): Z78.9 - OTHER SPECIFIED HEALTH STATUS SNOMED Code(s): 237296105 Status and Disposition: Inpatient pending rehab.
[2018-01-17] MEDS ORDERED: Ziprasidone IM INJ* 20 MG/ML VIAL IM ONE (21:59)
[2018-01-17] MEDS ORDERED: LORazepam INJ* 2 MG/ML 1 ML VIAL IV PUSH ONE (22:08)
[2018-01-17] MEDS ORDERED: LORazepam INJ* 2 MG/ML 1 ML VIAL ONE (22:15)
[2018-01-17] MEDS ORDERED: Nicotine Inhaler* 10 MG AMP INH PRN (23:59)
[2018-01-17] MEDS ORDERED: Mouth Piece, Nicotine* 1 EACH CARTRIDGE INH PRN (23:59)
[2018-01-18] MEDS: LORazepam INJ* 2 MG/ML 1 ML VIAL IV PUSH SCH ×8 (00:13→22:53)
[2018-01-18] MEDS: Ondansetron INJ* 2 MG/ML VIAL IV PRN ×2 (00:13→14:06)
[2018-01-18] MEDS ORDERED: Mouth Piece, Nicotine* 1 EACH CARTRIDGE INH ONE (01:30)
[2018-01-18] MEDS: Omeprazole CAP* 20 MG PO SCH (04:36)
[2018-01-18] MEDS: Heparin VIAL(*) 5000 UNITS/ML VIAL (FIVE THOUSAND) SUBCUT SCH ×4 (04:36→21:16)
[2018-01-18 05:26] LABS: ABS Basophils 0 10^3/ul (0-0.2); ABS Eosinophils 0.2 10^3/ul (0-0.6); ABS Lymphocytes 2.6 10^3/ul (1.0-4.8); ABS Monocytes 0.8 10^3/ul (0-0.8); ABS Nucleated RBC 0 10^3/ul; Eosinophil % 3.4 % (0-6); Hematocrit 43 % (42-52); Hemoglobin 14.5 g/dl (14.0-18.0); Lymphocyte % 46.3 % (25-47); Mean Corpuscular HGB Conc 34 g/dl (31-36); Mean Corpuscular Hemoglobin 34 pg (27-31); Mean Corpuscular Volume 99 fL (80-94); Mean Platelet Volume 8.8 um3 (7.4-10.4); Nucleated Red Blood Cells % 0.2; Platelet Count 164 10^3/ul (150-450); Red Blood Count 4.32 10^6/ul (4.00-5.40); Red Cell Distribution Width 15 % (10.5-15); White Blood Count 5.6 10^3/ul (3.5-10.8)
[2018-01-18 05:32] LABS: INR 0.81 (0.77-1.02)
[2018-01-18 05:46] LABS: EGFR Non-African American 128.9 (>60)
[2018-01-18] MEDS: Ascorbic Acid TAB* 500 MG PO SCH (10:54)
[2018-01-18] MEDS: Multivitamins/Minerals TAB PO SCH (10:54)
[2018-01-18] MEDS: Folic Acid TAB* 1 MG PO SCH (10:54)
[2018-01-18] MEDS: Thiamine TAB* 100 MG TAB PO SCH (10:54)
[2018-01-18] MEDS: CMC:OMEGA-3 FATTY ACIDS (NF) 1,000 MG CAP PO SCH (10:54)
[2018-01-18] MEDS: Cholecalciferol TAB* 400 UNIT PO SCH (10:54)
--- NOTE | 2018-01-18 15:07 | PN ---
Subjective Date of Service: 01/18/18 Interval History: Patient having waxing and waning course of coherency. Patient denies CP, SOB, N/ V, abdominal pain, diarrhea. Patient continues to be anxious and tremulous. Patient perseverates about his apartment and the plans for rehab. Patient expresses frustration about the delay in him going to rehab. Family History: Unchanged from Admission Social History: Unchanged from Admission Past Medical History: Unchanged from Admission Objective Active Medications: Acetaminophen (Tylenol Tab*) 650 mg PO Q4H PRN PRN Reason: FEVER/PAIN Al Hydrox/Mg Hydrox/Simethicone (Maalox Plus*) 30 ml PO Q6H PRN PRN Reason: INDIGESTION Last Admin: 01/16/18 16:45 Dose: 30 ml Ascorbic Acid (Vitamin C Tab*) 500 mg PO DAILY [facility] Last Admin: 01/18/18 10:54 Dose: 500 mg Cholecalciferol (Vitamin D Tab*) 400 unit PO DAILY [facility] Last Admin: 01/18/18 10:54 Dose: 400 unit Fish Oil (Fish Oil (Nf)) 1,000 mg PO DAILY [facility]; Protocol Last Admin: 01/18/18 10:54 Dose: 1,000 mg Folic Acid (Folvite Tab*) 1 mg PO DAILY [facility] Last Admin: 01/18/18 10:54 Dose: 1 mg Heparin Sodium (Porcine) (Heparin Vial(*)) 5,000 units SUBCUT Q8HR [facility] Last Admin: 01/18/18 14:09 Dose: Not Given Lorazepam (Ativan Inj*) 0 - [address] [facility] PROTOCOL [facility]; Protocol Last Admin: 01/18/18 14:06 Dose: 4 mg Multivitamins/Minerals (Theragran/Minerals Tab*) 1 tab PO DAILY [facility] Last Admin: 01/18/18 10:54 Dose: 1 tab Nicotine (Nicotine Inhaler*) 10 mg INH Q2H PRN PRN Reason: CRAVING Omeprazole (Prilosec Cap*) 20 mg PO 0600 [facility] Last Admin: 01/18/18 04:36 Dose: Not Given Ondansetron HCl (Zofran Inj*) 4 mg IV Q4H PRN PRN Reason: NAUSEA/VOMITING Last Admin: 01/18/18 14:06 Dose: 4 mg Thiamine HCl (Vitamin B-1 Tab*) 100 mg PO DAILY [facility] Last Admin: 01/18/18 10:54 Dose: 100 mg Vital Signs - 8 hr 01/18/18 01/18/18 01/18/18 07:15 08:00 08:46 Temperature 98.2 F Pulse Rate 82 Respiratory 20 20 20 Rate Blood Pressure 110/74 (mmHg) O2 Sat by Pulse 100 Oximetry 01/18/18 01/18/18 01/18/18 10:00 10:09 10:11 Temperature 97.3 F 97.3 F Pulse Rate 73 73 Respiratory 18 18 18 Rate Blood Pressure 104/70 104/70 (mmHg) O2 Sat by Pulse 99 99 Oximetry 01/18/18 01/18/18 01/18/18 12:35 13:56 14:06 Temperature 97.7 F Pulse Rate 94 Respiratory 17 16 20 Rate Blood Pressure 123/70 (mmHg) O2 Sat by Pulse 96 Oximetry 01/18/18 14:11 Temperature 96.9 F Pulse Rate 93 Respiratory 20 Rate Blood Pressure 116/73 (mmHg) O2 Sat by Pulse 98 Oximetry Oxygen Devices in Use Now: None Appearance: Patient is a 57yo male who appears stated age and is sitting in the bed in [facility]. Eyes: No Scleral Icterus, PERRLA Ears/Nose/Mouth/Throat: NL Teeth, Lips, Gums, Clear Oropharnyx, Mucous Membranes Moist Neck: NL Appearance and Movements; NL JVP, Trachea Midline Respiratory: Symmetrical Chest Expansion and Respiratory Effort, Clear to Auscultation Cardiovascular: NL Sounds; No Murmurs; No JVD, RRR, No Edema Abdominal: NL Sounds; No Tenderness; No Distention, No Hepatosplenomegaly Lymphatic: No Cervical Adenopathy Extremities: No Edema, No Clubbing, Cyanosis Skin: No Rash or Ulcers, No Nodules or Sclerosis Neurological: Alert and Oriented x 3, NL Sensation, NL Muscle Strength and Tone , - - Tremor. Wide gait. Result Diagrams: 01/18/18 04:51 01/18/18 04:51 Assess/Plan/Problems-Billing Assessment: Patient is a 57yo male with a PMH for recurrent alcohol abuse with previous hospitalizations for alcohol withdrawal management and alcoholic hepatitis who is currently admitted on the [facility] protocol. - Patient Problems (1) Alcohol withdrawal Current Visit: No Status: Acute Priority: High Code(s): F10.239 - ALCOHOL DEPENDENCE WITH WITHDRAWAL, UNSPECIFIED SNOMED Code(s): 935489258 Comment: - WAM score elevated. Continue at current doses - Very increased agitation overnight - Tolerating PO food - Continue Thiamine, MVI, folic acid - Alcohol level still elevated at admission. Likely he will begin to get better. - Interested in alcohol rehab, social work consult appreciated. - Had a previous 8 year stretch of sobriety. (2) Alcoholic hepatitis Current Visit: No Status: Chronic Code(s): K70.10 - ALCOHOLIC HEPATITIS WITHOUT ASCITES SNOMED Code(s): 685998096 Comment: - Elevated AST/ALT approximately stabel. - No jaundice - No indication for Steroids - Will need outpatient follow up to assess for cirrhosis. (3) Chronic pain Current Visit: No Status: Chronic Code(s): G89.29 - OTHER CHRONIC PAIN SNOMED Code(s): 37611972 Comment: - Supportive care (4) DVT prophylaxis Current Visit: No Status: Acute Code(s): TWC8566 - SNOMED Code(s): 241608631 Comment: - Heparin SubQ. (5) Full code status Current Visit: No Status: Acute Code(s): Z78.9 - OTHER SPECIFIED HEALTH STATUS SNOMED Code(s): 351401489 Status and Disposition: Inpatient pending rehab.
[2018-01-18] MEDS ORDERED: Naproxen TAB* 250 MG PO ONE (17:36)
[2018-01-19] MEDS: Omeprazole CAP* 20 MG PO SCH ×2 (05:58→06:00)
[2018-01-19] MEDS: Heparin VIAL(*) 5000 UNITS/ML VIAL (FIVE THOUSAND) SUBCUT SCH ×3 (06:01→22:58)
[2018-01-19 07:47] LABS: ABS Basophils 0 10^3/ul (0-0.2); ABS Eosinophils 0.3 10^3/ul (0-0.6); ABS Lymphocytes 2.3 10^3/ul (1.0-4.8); ABS Monocytes 0.9 10^3/ul (0-0.8); ABS Neutrophils 2.6 10^3/ul (1.5-7.7); ABS Nucleated RBC 0 10^3/ul; Eosinophil % 4.2 % (0-6); Hematocrit 40 % (42-52); Hemoglobin 13.6 g/dl (14.0-18.0); Lymphocyte % 37.9 % (25-47); Mean Corpuscular HGB Conc 34 g/dl (31-36); Mean Corpuscular Hemoglobin 33 pg (27-31); Mean Corpuscular Volume 98 fL (80-94); Mean Platelet Volume 8.9 um3 (7.4-10.4); Nucleated Red Blood Cells % 0.1; Platelet Count 159 10^3/ul (150-450); Red Cell Distribution Width 14 % (10.5-15); White Blood Count 6.2 10^3/ul (3.5-10.8)
[2018-01-19 08:01] LABS: EGFR Non-African American 126.6 (>60)
[2018-01-19] MEDS: Ascorbic Acid TAB* 500 MG PO SCH (08:50)
[2018-01-19] MEDS: CMC:OMEGA-3 FATTY ACIDS (NF) 1,000 MG CAP PO SCH (08:50)
[2018-01-19] MEDS: Folic Acid TAB* 1 MG PO SCH (08:50)
[2018-01-19] MEDS: Multivitamins/Minerals TAB PO SCH (08:50)
[2018-01-19] MEDS: Thiamine TAB* 100 MG TAB PO SCH (08:50)
[2018-01-19] MEDS: Cholecalciferol TAB* 400 UNIT PO SCH (08:50)
--- NOTE | 2018-01-19 10:13 | RAD ---
HISTORY: Clinical signs of hepatitis in a patient with a history of alcoholism. COMPARISONS: None TECHNIQUE: Multiple transverse and longitudinal ultrasound images were obtained of the right upper quadrant. FINDINGS: LIVER: There is homogenously increased echogenicity of the liver. The service of the liver is smooth. There are no suspicious focal masses. Normal hepatic and portal venous blood flow is duplicated with color flow imaging. There is no gross intrahepatic biliary duct dilatation. GALLBLADDER AND EXTRAHEPATIC BILIARY DUCT: The gallbladder is normal in appearance without intraluminal stones or other soft tissue masses. There is no pericholecystic fluid or gallbladder wall thickening. The common bile duct measures a maximum diameter of 2 mm. PANCREAS: The portions of the pancreas not obscured by bowel gas are normal in appearance. RIGHT KIDNEY: At the mid-level right kidney there is an anechoic and avascular structure measuring 9 mm most consistent with a benign cyst. Otherwise the right kidney is normal in size, morphology and echogenicity. AORTA AND IVC: The visualized portions are normal in appearance and not pathologically dilated. IMPRESSION: 1. HOMOGENOUSLY INCREASED ECHOGENICITY THE LIVER COULD BE SEEN IN THE SETTING OF HEPATIC STEATOSIS OR OTHER CHRONIC INFILTRATIVE DISEASE. 2. OTHERWISE NORMAL RIGHT UPPER QUADRANT SONOGRAM.
--- NOTE | 2018-01-19 14:38 | PN ---
Subjective Date of Service: 01/19/18 Interval History: Patient has mild residual tremor. Significantly decreased delusions and no more unsteadiness of gait. Patient denies F/C, N/V, abdominal pain, dysuria, diarrhea , or other pain. Patient denies history of IV drug abuse or recent new sexual partners. Family History: Unchanged from Admission Social History: Unchanged from Admission Past Medical History: Unchanged from Admission Objective Active Medications: Acetaminophen (Tylenol Tab*) 650 mg PO Q4H PRN PRN Reason: FEVER/PAIN Al Hydrox/Mg Hydrox/Simethicone (Maalox Plus*) 30 ml PO Q6H PRN PRN Reason: INDIGESTION Last Admin: 01/16/18 16:45 Dose: 30 ml Ascorbic Acid (Vitamin C Tab*) 500 mg PO DAILY [facility] Last Admin: 01/19/18 08:50 Dose: 500 mg Cholecalciferol (Vitamin D Tab*) 400 unit PO DAILY [facility] Last Admin: 01/19/18 08:50 Dose: 400 unit Fish Oil (Fish Oil (Nf)) 1,000 mg PO DAILY [facility]; Protocol Last Admin: 01/19/18 08:50 Dose: Not Given Folic Acid (Folvite Tab*) 1 mg PO DAILY [facility] Last Admin: 01/19/18 08:50 Dose: 1 mg Heparin Sodium (Porcine) (Heparin Vial(*)) 5,000 units SUBCUT Q8HR [facility] Last Admin: 01/19/18 12:22 Dose: Not Given Lorazepam (Ativan Inj*) 0 - [address] .PER [facility] PROTOCOL [facility]; Protocol Multivitamins/Minerals (Theragran/Minerals Tab*) 1 tab PO DAILY [facility] Last Admin: 01/19/18 08:50 Dose: 1 tab Nicotine (Nicotine Inhaler*) 10 mg INH Q2H PRN PRN Reason: CRAVING Omeprazole (Prilosec Cap*) 20 mg PO 0600 [facility] Last Admin: 01/19/18 06:00 Dose: Not Given Ondansetron HCl (Zofran Inj*) 4 mg IV Q4H PRN PRN Reason: NAUSEA/VOMITING Last Admin: 01/18/18 14:06 Dose: 4 mg Thiamine HCl (Vitamin B-1 Tab*) 100 mg PO DAILY [facility] Last Admin: 01/19/18 08:50 Dose: 100 mg Vital Signs - 8 hr 01/19/18 01/19/18 01/19/18 07:58 08:30 09:52 Temperature 98.0 F 97.3 F Pulse Rate 70 73 Respiratory 17 16 21 Rate Blood Pressure 118/75 112/62 (mmHg) O2 Sat by Pulse 98 98 Oximetry 01/19/18 01/19/18 11:56 14:07 Temperature 97.5 F 98.7 F Pulse Rate 97 90 Respiratory 18 18 Rate Blood Pressure 138/74 126/77 (mmHg) O2 Sat by Pulse 100 100 Oximetry Oxygen Devices in Use Now: None Appearance: Patient is a 57yo male who appears stated age and is sitting in the bed in [facility]. Eyes: No Scleral Icterus, PERRLA Ears/Nose/Mouth/Throat: NL Teeth, Lips, Gums, Clear Oropharnyx, Mucous Membranes Moist Neck: NL Appearance and Movements; NL JVP, Trachea Midline Respiratory: Symmetrical Chest Expansion and Respiratory Effort, Clear to Auscultation Cardiovascular: NL Sounds; No Murmurs; No JVD, RRR, No Edema Abdominal: NL Sounds; No Tenderness; No Distention, No Hepatosplenomegaly Lymphatic: No Cervical Adenopathy Extremities: No Edema, No Clubbing, Cyanosis Skin: No Rash or Ulcers, No Nodules or Sclerosis Neurological: Alert and Oriented x 3, NL Sensation, NL Muscle Strength and Tone , - - CN II-XII intact. Result Diagrams: 01/19/18 07:10 01/19/18 07:10 Assess/Plan/Problems-Billing Assessment: Patient is a 57yo male with a PMH for recurrent alcohol abuse with previous hospitalizations for alcohol withdrawal management and alcoholic hepatitis who is currently admitted on the [facility] protocol. - Patient Problems (1) Alcohol withdrawal Current Visit: No Status: Acute Priority: High Code(s): F10.239 - ALCOHOL DEPENDENCE WITH WITHDRAWAL, UNSPECIFIED SNOMED Code(s): 398809897 Comment: - WAM score trending down. Decrease ativan doses - Agitation decreasing. - Tolerating PO food - Continue Thiamine, MVI, folic acid - Interested in alcohol rehab, social work consult appreciated. - Had a previous 8 year stretch of sobriety. (2) Alcoholic hepatitis Current Visit: No Status: Chronic Code(s): K70.10 - ALCOHOLIC HEPATITIS WITHOUT ASCITES SNOMED Code(s): 872346341 Comment: - Elevated AST/ALT trending up slightly - No jaundice - No indication for Steroids - Viral panel sent - Ferritin WNL. (3) Chronic pain Current Visit: No Status: Chronic Code(s): G89.29 - OTHER CHRONIC PAIN SNOMED Code(s): 85664588 Comment: - Supportive care (4) DVT prophylaxis Current Visit: No Status: Acute Code(s): ZZK9001 - SNOMED Code(s): 631700842 Comment: - Heparin SubQ. (5) Full code status Current Visit: No Status: Acute Code(s): Z78.9 - OTHER SPECIFIED HEALTH STATUS SNOMED Code(s): 996112574 Status and Disposition: Inpatient pending rehab.
[2018-01-19] MEDS: LORazepam INJ* 2 MG/ML 1 ML VIAL IV PUSH SCH ×2 (15:55→22:44)
[2018-01-20] MEDS: Omeprazole CAP* 20 MG PO SCH (06:11)
[2018-01-20] MEDS: Heparin VIAL(*) 5000 UNITS/ML VIAL (FIVE THOUSAND) SUBCUT SCH ×3 (06:11→22:53)
[2018-01-20 06:58] LABS: EGFR Non-African American 120.2 (>60)
[2018-01-20] MEDS: Folic Acid TAB* 1 MG PO SCH (08:08)
[2018-01-20] MEDS: Ascorbic Acid TAB* 500 MG PO SCH (08:08)
[2018-01-20] MEDS: Thiamine TAB* 100 MG TAB PO SCH (08:08)
[2018-01-20] MEDS: Multivitamins/Minerals TAB PO SCH (08:08)
[2018-01-20] MEDS: Cholecalciferol TAB* 400 UNIT PO SCH (08:09)
[2018-01-20] MEDS: CMC:OMEGA-3 FATTY ACIDS (NF) 1,000 MG CAP PO SCH (08:10)
[2018-01-20] MEDS: LORazepam INJ* 2 MG/ML 1 ML VIAL IV PUSH SCH ×2 (08:11→18:19)
--- NOTE | 2018-01-20 15:31 | PN ---
Subjective Date of Service: 01/20/18 Interval History: Patient feeling better still. Anxiety and agitation has resolved. Slight tremor. No unsteadiness. Patient denies F/C, N/V, abdominal pain, dizziness, palpitations, CP, SOB, or other pain. Family History: Unchanged from Admission Social History: Unchanged from Admission Past Medical History: Unchanged from Admission Objective Active Medications: Acetaminophen (Tylenol Tab*) 650 mg PO Q4H PRN PRN Reason: FEVER/PAIN Al Hydrox/Mg Hydrox/Simethicone (Maalox Plus*) 30 ml PO Q6H PRN PRN Reason: INDIGESTION Last Admin: 01/16/18 16:45 Dose: 30 ml Ascorbic Acid (Vitamin C Tab*) 500 mg PO DAILY [facility] Last Admin: 01/20/18 08:08 Dose: 500 mg Cholecalciferol (Vitamin D Tab*) 400 unit PO DAILY [facility] Last Admin: 01/20/18 08:09 Dose: 400 unit Fish Oil (Fish Oil (Nf)) 1,000 mg PO DAILY [facility]; Protocol Last Admin: 01/20/18 08:10 Dose: 1,000 mg Folic Acid (Folvite Tab*) 1 mg PO DAILY [facility] Last Admin: 01/20/18 08:08 Dose: 1 mg Heparin Sodium (Porcine) (Heparin Vial(*)) 5,000 units SUBCUT Q8HR [facility] Last Admin: 01/20/18 14:18 Dose: Not Given Lorazepam (Ativan Inj*) 0 - 8 mg IV PUSH .PER [facility] PROTOCOL [facility]; Protocol Last Admin: 01/20/18 08:11 Dose: 1 mg Multivitamins/Minerals (Theragran/Minerals Tab*) 1 tab PO DAILY [facility] Last Admin: 01/20/18 08:08 Dose: 1 tab Nicotine (Nicotine Inhaler*) 10 mg INH Q2H PRN PRN Reason: CRAVING Omeprazole (Prilosec Cap*) 20 mg PO 0600 [facility] Last Admin: 01/20/18 06:11 Dose: Not Given Ondansetron HCl (Zofran Inj*) 4 mg IV Q4H PRN PRN Reason: NAUSEA/VOMITING Last Admin: 01/18/18 14:06 Dose: 4 mg Thiamine HCl (Vitamin B-1 Tab*) 100 mg PO DAILY [facility] Last Admin: 01/20/18 08:08 Dose: 100 mg Vital Signs - 8 hr 09/23/18 09/23/18 09/23/18 07:58 08:00 08:11 Temperature 98.1 F Pulse Rate 99 Respiratory 18 20 22 Rate Blood Pressure 131/77 (mmHg) O2 Sat by Pulse 100 Oximetry 01/20/18 01/20/18 01/20/18 09:10 10:08 12:00 Temperature 97.7 F 97.9 F Pulse Rate 85 90 Respiratory 18 20 18 Rate Blood Pressure 127/70 129/81 (mmHg) O2 Sat by Pulse 97 98 Oximetry Oxygen Devices in Use Now: None Appearance: Patient is a 57yo male who appears stated age and is sitting in the bed in [facility]. Eyes: No Scleral Icterus, PERRLA Ears/Nose/Mouth/Throat: NL Teeth, Lips, Gums, Clear Oropharnyx, Mucous Membranes Moist Neck: NL Appearance and Movements; NL JVP, Trachea Midline Respiratory: Symmetrical Chest Expansion and Respiratory Effort, Clear to Auscultation Cardiovascular: NL Sounds; No Murmurs; No JVD, RRR, No Edema Abdominal: NL Sounds; No Tenderness; No Distention, No Hepatosplenomegaly Lymphatic: No Cervical Adenopathy Extremities: No Edema, No Clubbing, Cyanosis Skin: No Rash or Ulcers, No Nodules or Sclerosis Neurological: Alert and Oriented x 3, NL Sensation, NL Muscle Strength and Tone , - - Cn II-XII intact. Result Diagrams: 01/19/18 07:10 01/20/18 06:29 Assess/Plan/Problems-Billing Assessment: Patient is a 57yo male with a PMH for recurrent alcohol abuse with previous hospitalizations for alcohol withdrawal management and alcoholic hepatitis who is currently admitted on the [facility] protocol. - Patient Problems (1) Alcohol withdrawal Current Visit: No Status: Acute Priority: High Code(s): F10.239 - ALCOHOL DEPENDENCE WITH WITHDRAWAL, UNSPECIFIED SNOMED Code(s): 643047754 Comment: - WAM score minimal. Decrease ativan doses - Agitation resolved - Tolerating PO food - Continue Thiamine, MVI, folic acid - Interested in alcohol rehab, social work consult appreciated. - Has bed at rehab on Sunday. - Had a previous 8 year stretch of sobriety. (2) Alcoholic hepatitis Current Visit: No Status: Chronic Code(s): K70.10 - ALCOHOLIC HEPATITIS WITHOUT ASCITES SNOMED Code(s): 609111078 Comment: - Elevated AST/ALT trending up slightly - No jaundice - No indication for Steroids - Viral panel sent - Ferritin WNL. - Recommend repeat in 1 week (3) Chronic pain Current Visit: No Status: Chronic Code(s): G89.29 - OTHER CHRONIC PAIN SNOMED Code(s): 63300259 Comment: - Supportive care (4) DVT prophylaxis Current Visit: No Status: Acute Code(s): JTR3417 - SNOMED Code(s): 707153081 Comment: - Heparin SubQ. (5) Full code status Current Visit: No Status: Acute Code(s): Z78.9 - OTHER SPECIFIED HEALTH STATUS SNOMED Code(s): 461902229 Status and Disposition: Inpatient pending rehab.
[2018-01-21] MEDS: LORazepam INJ* 2 MG/ML 1 ML VIAL IV PUSH SCH ×2 (01:56→03:25)
[2018-01-21] MEDS: Heparin VIAL(*) 5000 UNITS/ML VIAL (FIVE THOUSAND) SUBCUT SCH ×3 (06:57→21:12)
[2018-01-21] MEDS: Omeprazole CAP* 20 MG PO SCH (06:57)
[2018-01-21] MEDS: Ascorbic Acid TAB* 500 MG PO SCH (08:54)
[2018-01-21] MEDS: CMC:OMEGA-3 FATTY ACIDS (NF) 1,000 MG CAP PO SCH (08:54)
[2018-01-21] MEDS: Folic Acid TAB* 1 MG PO SCH (08:54)
[2018-01-21] MEDS: Multivitamins/Minerals TAB PO SCH (08:54)
[2018-01-21] MEDS: Thiamine TAB* 100 MG TAB PO SCH (08:55)
[2018-01-21] MEDS: Cholecalciferol TAB* 400 UNIT PO SCH (08:55)
--- NOTE | 2018-01-21 10:29 | PN ---
Subjective Date of Service: 01/21/18 Interval History: Mr. Epps reports feeling well this morning. He reports needing Ativan overnight when he became restless and was not able to sleep. He offers no further complaints. He otherwise feels as though his withdrawal symptoms have resolved. He is looking forward to going to rehab tomorrow and is optimistic about his recovery. Family History: Unchanged from Admission Social History: Unchanged from Admission Past Medical History: Unchanged from Admission Objective Active Medications: Acetaminophen (Tylenol Tab*) 650 mg PO Q4H PRN Al Hydrox/Mg Hydrox/Simethicone (Maalox Plus*) 30 ml PO Q6H PRN Ascorbic Acid (Vitamin C Tab*) 500 mg PO DAILY [facility] Cholecalciferol (Vitamin D Tab*) 400 unit PO DAILY [facility] Fish Oil (Fish Oil (Nf)) 1,000 mg PO DAILY [facility]; Protocol Folic Acid (Folvite Tab*) 1 mg PO DAILY [facility] Heparin Sodium (Porcine) (Heparin Vial(*)) 5,000 units SUBCUT Q8HR [facility] Lorazepam (Ativan Inj*) 0 - 8 mg IV PUSH .PER [facility] PROTOCOL [facility]; Protocol Multivitamins/Minerals (Theragran/Minerals Tab*) 1 tab PO DAILY [facility] Nicotine (Nicotine Inhaler*) 10 mg INH Q2H PRN Omeprazole (Prilosec Cap*) 20 mg PO 0600 [facility] Ondansetron HCl (Zofran Inj*) 4 mg IV Q4H PRN Thiamine HCl (Vitamin B-1 Tab*) 100 mg PO DAILY [facility] Vital Signs - 8 hr 01/21/18 01/21/18 01/21/18 03:25 04:30 04:40 Temperature 97.5 F Pulse Rate 69 Respiratory 20 16 18 Rate Blood Pressure 124/65 (mmHg) O2 Sat by Pulse 100 Oximetry 01/21/18 01/21/18 01/21/18 06:03 08:00 08:06 Temperature 98.2 F 97.9 F Pulse Rate 70 Respiratory 20 18 16 Rate Blood Pressure 125/58 107/70 (mmHg) O2 Sat by Pulse 100 99 Oximetry Oxygen Devices in Use Now: None Appearance: Middle-aged male sitting in chair in no acute distress. Eyes: No Scleral Icterus, PERRLA Ears/Nose/Mouth/Throat: NL Teeth, Lips, Gums, Mucous Membranes Moist Neck: NL Appearance and Movements; NL JVP Respiratory: Symmetrical Chest Expansion and Respiratory Effort, Clear to Auscultation Cardiovascular: NL Sounds; No Murmurs; No JVD, RRR, No Edema Abdominal: NL Sounds; No Tenderness; No Distention Extremities: No Edema Skin: No Rash or Ulcers Lines/Tubes/Other Access: Clean, Dry and Intact Peripheral IV Nutrition: Taking PO's Result Diagrams: 01/19/18 07:10 01/20/18 06:29 Assess/Plan/Problems-Billing Assessment: Patient is a 57yo male with a PMH for recurrent alcohol abuse with previous hospitalizations for alcohol withdrawal management and alcoholic hepatitis who is currently admitted on the [facility] protocol. - Patient Problems (1) Alcohol withdrawal Current Visit: Yes Status: Acute Priority: High Code(s): F10.239 - ALCOHOL DEPENDENCE WITH WITHDRAWAL, UNSPECIFIED SNOMED Code(s): 145871650 Comment: - WAM score minimal - Sympotoms resolved - Continue Thiamine, MVI, folic acid - Has bed later this week - Had a previous 8 year stretch of sobriety (2) Alcoholic hepatitis Current Visit: Yes Status: Chronic Priority: High Code(s): K70.10 - ALCOHOLIC HEPATITIS WITHOUT ASCITES SNOMED Code(s): 363699220 Comment: - Elevated AST/ALT trending up slightly - Asymptomatic - No indication for Steroids - Viral panel sent - Ferritin WNL - Recommend repeat in 1 week (3) Chronic pain Current Visit: Yes Status: Chronic Priority: High Code(s): G89.29 - OTHER CHRONIC PAIN SNOMED Code(s): 90721861 Comment: - Supportive care (4) DVT prophylaxis Current Visit: Yes Status: Acute Priority: High Code(s): REA7685 - SNOMED Code(s): 489395508 Comment: - Heparin SubQ (5) Full code status Current Visit: Yes Status: Acute Priority: High Code(s): Z78.9 - OTHER SPECIFIED HEALTH STATUS SNOMED Code(s): 329470090 Status and Disposition: Medically stable for d/c. Plan to discharge to rehab when bed available.
[2018-01-21] MEDS ORDERED: LORazepam TAB(*) 1 MG PO SCH (18:00)
[2018-01-22] MEDS: Melatonin 3 MG TAB PO SCH ×2 (00:59→23:00)
--- NOTE | 2018-01-22 02:07 | PTEDU ---
Patient Name: NABIL DOYLE NABIL DOYLE selected video: Vital Signs: Know Your Numbers to view on 01/22/2018 at 2:06:52 A M from [facility]_01
[2018-01-22] MEDS: Heparin VIAL(*) 5000 UNITS/ML VIAL (FIVE THOUSAND) SUBCUT SCH ×3 (04:15→23:00)
[2018-01-22] MEDS: Omeprazole CAP* 20 MG PO SCH (04:16)
[2018-01-22] MEDS: Cholecalciferol TAB* 400 UNIT PO SCH (08:18)
[2018-01-22] MEDS: Thiamine TAB* 100 MG TAB PO SCH (08:18)
[2018-01-22] MEDS: Folic Acid TAB* 1 MG PO SCH (08:18)
[2018-01-22] MEDS: Ascorbic Acid TAB* 500 MG PO SCH (08:18)
[2018-01-22] MEDS: Multivitamins/Minerals TAB PO SCH (08:18)
[2018-01-22] MEDS: CMC:OMEGA-3 FATTY ACIDS (NF) 1,000 MG CAP PO SCH (08:18)
--- NOTE | 2018-01-22 15:17 | PN ---
Subjective Date of Service: 01/22/18 Interval History: Mr. Epps reports feeling well this morning. He reports having a difficult night where he felt as though his withdrawal symptoms were worsening, but he feels better this morning and no longer has any symptoms. Offers no further complaints. Still looking forward to going to rehab on . Family History: Unchanged from Admission Social History: Unchanged from Admission Past Medical History: Unchanged from Admission Objective Active Medications: Acetaminophen (Tylenol Tab*) 650 mg PO Q4H PRN Al Hydrox/Mg Hydrox/Simethicone (Maalox Plus*) 30 ml PO Q6H PRN Ascorbic Acid (Vitamin C Tab*) 500 mg PO DAILY [facility] Cholecalciferol (Vitamin D Tab*) 400 unit PO DAILY [facility] Fish Oil (Fish Oil (Nf)) 1,000 mg PO DAILY [facility]; Protocol Folic Acid (Folvite Tab*) 1 mg PO DAILY [facility] Heparin Sodium (Porcine) (Heparin Vial(*)) 5,000 units SUBCUT Q8HR [facility] Lorazepam (Ativan Tab(*)) 0 - 6 mg PO .PER [facility] PROTOCOL [facility]; Protocol Melatonin (Melatonin) 3 mg PO BEDTIME [facility] Multivitamins/Minerals (Theragran/Minerals Tab*) 1 tab PO DAILY [facility] Nicotine (Nicotine Inhaler*) 10 mg INH Q2H PRN Omeprazole (Prilosec Cap*) 20 mg PO 0600 [facility] Ondansetron HCl (Zofran Inj*) 4 mg IV Q4H PRN Thiamine HCl (Vitamin B-1 Tab*) 100 mg PO DAILY [facility] Vital Signs - 8 hr 01/22/18 01/22/18 01/22/18 08:00 08:08 08:17 Temperature 97.8 F Pulse Rate 90 Respiratory 22 16 16 Rate Blood Pressure 142/97 (mmHg) O2 Sat by Pulse 100 Oximetry 01/22/18 01/22/18 10:49 12:14 Temperature 98.3 F Pulse Rate 85 Respiratory 18 20 Rate Blood Pressure 124/72 (mmHg) O2 Sat by Pulse 99 Oximetry Oxygen Devices in Use Now: None Appearance: Middle-aged male sitting in bed in no acute distress. Eyes: No Scleral Icterus, PERRLA Ears/Nose/Mouth/Throat: NL Teeth, Lips, Gums, Mucous Membranes Moist Neck: NL Appearance and Movements; NL JVP, Trachea Midline Respiratory: Symmetrical Chest Expansion and Respiratory Effort, Clear to Auscultation Cardiovascular: NL Sounds; No Murmurs; No JVD, RRR, No Edema Abdominal: NL Sounds; No Tenderness; No Distention, No Hepatosplenomegaly Extremities: No Edema Skin: No Rash or Ulcers Neurological: Alert and Oriented x 3 Lines/Tubes/Other Access: Clean, Dry and Intact Peripheral IV Nutrition: Taking PO's Result Diagrams: 01/19/18 07:10 01/20/18 06:29 Assess/Plan/Problems-Billing Assessment: Patient is a 57yo male with a PMH for recurrent alcohol abuse with previous hospitalizations for alcohol withdrawal management and alcoholic hepatitis who is currently admitted on the [facility] protocol. - Patient Problems (1) Alcohol withdrawal Current Visit: Yes Status: Acute Priority: High Code(s): F10.239 - ALCOHOL DEPENDENCE WITH WITHDRAWAL, UNSPECIFIED SNOMED Code(s): 015167544 Comment: - WAM score minimal - Sympotoms resolved - Continue Thiamine, MVI, folic acid - Has rehab bed later this week - Had a previous 8 year stretch of sobriety (2) Alcoholic hepatitis Current Visit: Yes Status: Chronic Priority: High Code(s): K70.10 - ALCOHOLIC HEPATITIS WITHOUT ASCITES SNOMED Code(s): 656952171 Comment: - Elevated AST/ALT trending up slightly - Asymptomatic - No indication for Steroids - Viral panel negative - Ferritin WNL - Recommend repeat in 1 week (3) Chronic pain Current Visit: Yes Status: Chronic Priority: High Code(s): G89.29 - OTHER CHRONIC PAIN SNOMED Code(s): 52757825 Comment: - Supportive care (4) Full code status Current Visit: Yes Status: Acute Priority: High Code(s): Z78.9 - OTHER SPECIFIED HEALTH STATUS SNOMED Code(s): 835536181 (5) DVT prophylaxis Current Visit: Yes Status: Acute Priority: High Code(s): AGX3819 - SNOMED Code(s): 451218622 Comment: - Heparin SubQ Status and Disposition: Medically stable for d/c. Plan to discharge home, patient will check into rehab as an outpatient.
[2018-01-23] MEDS: Omeprazole CAP* 20 MG PO SCH (05:19)
[2018-01-23] MEDS: Heparin VIAL(*) 5000 UNITS/ML VIAL (FIVE THOUSAND) SUBCUT SCH (05:19)
[2018-01-23] MEDS: Cholecalciferol TAB* 400 UNIT PO SCH (09:12)
[2018-01-23] MEDS: Folic Acid TAB* 1 MG PO SCH (09:13)
[2018-01-23] MEDS: Ascorbic Acid TAB* 500 MG PO SCH (09:13)
[2018-01-23] MEDS: Multivitamins/Minerals TAB PO SCH (09:13)
[2018-01-23] MEDS: Thiamine TAB* 100 MG TAB PO SCH (09:13)
[2018-01-23] MEDS: CMC:OMEGA-3 FATTY ACIDS (NF) 1,000 MG CAP PO SCH (09:13)
[2018-01-23 12:17] VITALS: BP 156/80
--- NOTE | 2018-01-24 13:45 | DS ---
AMENDED REPORT NOW INCLUDES COSIGNER DESIGNATION - ESIGNED BEFORE ADJUSTMENTS CC: Dr. Lencho Mart * DISCHARGE SUMMARY: DATE OF ADMISSION: 01/16/18 DATE OF DISCHARGE: 01/23/18 PRIMARY CARE PROVIDER: Dr. Lencho Mart. ATTENDING PHYSICIAN: Dr. Denver Ramos * (dictated by Matilde Malagon NP). PRIMARY DIAGNOSES: 1. Alcohol withdrawal. 2. Alcoholic hepatitis. SECONDARY DIAGNOSES: 1. Chronic pain. 2. History of alcohol abuse. STUDIES WHILE IN THE HOSPITAL: Liver ultrasound done on 01/19/18, reads as homogeneously increased echogenicity of the liver, could be seen in the setting of hepatic steatosis or other chronic infiltrative disease. Otherwise, normal right upper quadrant sonogram. DISCHARGE MEDICATIONS: New home medications: 1. Folic acid 1 mg p.o. daily. 2. Multivitamin 1 tab p.o. daily. 3. Thiamine 100 mg p.o. daily. Continued home medication: 1. Naproxen 500 mg p.o. q.6 hours p.r.n. HISTORY OF PRESENT ILLNESS AND HOSPITAL COURSE: Mr. Epps is a 57-year-old male with a past medical history of alcohol abuse and chronic back pain, who presented to the emergency room on 01/16/18 with symptoms of alcohol withdrawal. Please see the history and physical by Dr. Maria Esther Greer for a complete summary of the events leading up to this hospitalization; but,in short , the patient reported he had been relapsing on and off for the past 3 months. His last drink was on 01/15/18 and he was drinking about 1 quart of vodka per day. He had approximately 15 to 20 pounds of weight loss over the last 6 months. He was admitted to the hospital for alcohol withdrawal, placed on [facility] protocol. He did complain of chest and/or epigastric pain, which was likely gastritis related to drinking. He had a negative troponin. During this hospitalization, he also was noted to have elevated AST and ALT up to 129 and 132 respectively. His viral hepatitis panel was negative. Throughout his hospital stay, he received frequent lorazepam through 01/20/18. On 01/21/18, he received 1 dose of 2 mg and on 01/22/18, he received 3 mg of lorazepam. As of the day of discharge, his withdrawal symptoms have resolved and he has not required any further lorazepam. He is planning on checking into an inpatient rehab on 01/24/18. Mr. Epps is stable for discharge home today. Vital signs are as follows: Temp 98.5, heart rate 85, respiratory rate 17, oxygen saturation 98% on room air , blood pressure 156/80. DISCHARGE PLAN: Mr. Epps will be discharged home with plan to check into inpatient rehab on 01/24/18. Activity will be as tolerated. Diet will be regular as tolerated. The patient has been provided education regarding alcohol abuse and abstinence. He will go home with the new medications noted above. I spoke with Dr. Mart, who recommended that I attempt to start the patient on naltrexone 50 mg daily on discharge. I spoke with the patient at length about this and he declined to start it at this time. He understands that he needs to follow up with Dr. Mart after discharge and the naltrexone should be further discussed at that time. The patient has been instructed to return to the emergency room or nearest hospital for any worsening of symptoms, shortness of breath, lightheadedness, dizziness, chest discomfort, high fevers, chills, night sweats, loss of consciousness, or any other worrisome signs or symptoms. He is in understanding of all discharge instructions and plan. This is a summarized report of a complex medical history and hospital stay. For further details, please see the entire medical record. TIME SPENT: Approximately 45 minutes were spent on this discharge, greater than half of that time was spent [id number] with the patient discussing discharge plans and instructions. MATILDE MALAGON NP [id number]/CPS #: [id number] EFRAIN
== END 2018-01-23 14:00 | disposition home or self-care (01) | DRG 897 ==
LOC: ED 18:52 → MED 01-16 03:48 → OBSVTOIN 01-16 09:57 → MED 01-21 15:20
PROVIDERS: ADMIT Pediatrics; ATTEND Internal Medicine
DX: F10.239 Alcohol dependence with withdrawal, unspecified (principal); F10.229 Alcohol dependence with intoxication, unspecified; K70.10 Alcoholic hepatitis without ascites; Y90.7 Blood alcohol level of 200-239 mg/100 ml; G89.29 Other chronic pain; K29.20 Alcoholic gastritis without bleeding; F12.90 Cannabis use, unspecified, uncomplicated; F17.220 Nicotine dependence, chewing tobacco, uncomplicated; Z79.899 Other long term (current) drug therapy; Z88.0 Allergy status to penicillin; Z81.1 Family history of alcohol abuse and dependence; Z82.49 Family history of ischemic heart disease and other diseases of the circulatory system
CPT/HCPCS: 36415; 76705; 80048; 80053; 80074; 80076; 80320; 82728; 82977; 83690; 83735; 84484; 85025; 85610; 96374; 99284; A9270-GY; G0480; J1644; J2060; J2405; J3411; J3486

== ENCOUNTER 2018-02-28 12:28 | Emergency (ER) | payer MEDICARE, MEDICAID ==
[2018-02-28 13:11] VITALS: BP 157/83
--- NOTE | 2018-02-28 13:27 | UC ---
Skin Complaint HPI - HPI Summary HPI Summary: 57 yo M, hx of severe alcoholism, c/o several weeks of rash on arms, legs and face. Patient is unsure of exact evolution of rash b/c at time of onset he was drinking heavily and persistently intoxicated. He was also eating extremely poorly. He has multiple large ulcerations on erythematous base on extensor surface of UEs, LEs and face. None on trunk. Since his recent sobriety and improved eating habits in past week or so the rash seems to be improving. It is pruritic. Non-draining. He does not know of any chronic medical conditions. Patient unsure if he may have hx of eczema. Has had itching in past and frequently scratches the affected areas, but has never before developed lesions such as these - History of Current Complaint Chief Complaint: UCSkin Time Seen by Provider: 02/28/18 13:13 Stated Complaint: SKIN ISSUE Hx Obtained From: Patient Pain Intensity: 3 - Allergy/Home Medications Allergies/Adverse Reactions: Allergies Allergy/AdvReac Type Severity Reaction Status Date / Time Penicillins Allergy Intermediate Rash Verified 02/28/18 13:12 Review of Systems Constitutional: Negative All Other Systems Reviewed And Are Negative: Yes PMH/Surg Hx/FS Hx/Imm Hx Other History Of: Negative For: Anticoagulant Therapy - Surgical History Surgical History: Yes Surgery Procedure, Year, and Place: Tonsillectomy, dental - Family History Known Family History: Positive: None - Patient denies relevant FHx Negative: Cardiac Disease, Hypertension, Diabetes - Social History Alcohol Use: Daily Alcohol Amount: quart of vodka a day Substance Use Type: Marijuana Substance Use Comment - Amount & Last Used: 10/17/17 Smoking Status (MU): Current Some Day Smoker Type: Cigarettes Have You Smoked in the Last Year: Yes Household Exposure Type: Cigarettes - Immunization History Most Recent Influenza Vaccination: Never Most Recent Tetanus Shot: PATIENT UNABLE TO RECALL F/U with Dr Jody Mart Most Recent Pneumonia Vaccination: never Physical Exam Triage Information Reviewed: Yes Appearance: No Pain Distress, Thin Vital Signs: Initial Vital Signs Temp 98.7 F 02/28/18 13:08 Pulse 98 02/28/18 13:08 Resp 16 02/28/18 13:08 BP 157/83 02/28/18 13:08 Pulse Ox 98 02/28/18 13:08 Vital Signs Reviewed: Yes Eyes: Positive: Conjunctiva Clear Respiratory: Positive: No respiratory distress, No accessory muscle use Abdomen Description: Negative: Distended Skin: Positive: rashes, significant lesion(s) - multiple large (3-4 cm) crusted shallow ulcerations on UEs and LEs, extensor surface, w erythematous base. smaller similar lesions on face Course/Dx - Course Course Of Treatment: no intervention. patient instructed to f/u MARIA TERESA w filterer - Differential Diagnoses - Skin Complaint Differential Diagnoses: Other - eczema, cellulitis, HIV, - Diagnoses Provider Diagnoses: rash/skin wounds Discharge - Sign-Out/Discharge Documenting (check all that apply): Patient Departure All imaging exams completed and their final reports reviewed: No Studies - Discharge Plan Condition: Stable Disposition: HOME Prescriptions: Sulfamethox/Trimethoprim DS* [Bactrim DS 800/160 TAB*] 1 tab PO BID 7 Days #14 tab Patient Education Materials: Acute Rash (ED) Referrals: Lencho Mart MD [Primary Care Provider] - Additional Instructions: Schedule an appointment with your filterer SOON POSSIBLE for evaluation of the rash/sores on your arms, legs and face - Billing Disposition and Condition Condition: STABLE Disposition: Home
== END 2018-02-28 13:42 | disposition home or self-care (01) ==
LOC: UCEAST 12:28
DX: R21 Rash and other nonspecific skin eruption (principal); L98.9 Disorder of the skin and subcutaneous tissue, unspecified; Z88.0 Allergy status to penicillin; Z72.0 Tobacco use
CPT/HCPCS: 99212; G0463

== ENCOUNTER 2023-06-12 12:01 | Inpatient (IN) ==
[2023-06-12 13:25] LABS: Venous Bicarbonate HCO3 26.7 mmol/L (24-28)
[2023-06-12 13:28] LABS: Hematocrit 41.3 % (38-53); Hemoglobin 13.8 g/dL (13.2-16.3); Mean Corpuscular Hgb Conc 33.5 g/dL (31-36); Mean Corpuscular Volume 92.4 fL (80-97); Mean Platelet Volume 7.9 fL (7.5-11.2); Platelet Count 698 10^3/uL (150-450); Red Blood Count 4.47 10^6/uL (4.06-5.63); Red Cell Distribution Width 13.2 % (12-17); White Blood Count 23.6 10^3/uL (3.6-10.2)
[2023-06-12] MEDS: NS 0.9% 1000 ml BAG 1,000 ML IV ONE ×2 (13:28→15:34)
[2023-06-12 13:45] LABS: Alcohol, S < 13 mg/dL (<13)
[2023-06-12 13:49] LABS: ALT 9 U/L (7-52); Albumin/Globulin Ratio 0.5 (1-3); Alkaline Phosphatase 175 U/L (35-149); Anion Gap 16 mmol/L (2-16); Blood Urea Nitrogen 68 mg/dL (6-24); C Reactive Protein 174.86 mg/L (<8.01); CO2 Carbon Dioxide 25 mmol/L (22-32); Calcium 9.2 mg/dL (8.6-10.3); Chloride 88 mmol/L (101-111); Globulin 5.9 g/dL (2-4); Glucose 144 mg/dL (70-100); Magnesium 2.6 mg/dL (1.9-2.7); Sodium 129 mmol/L (135-145); Total Bilirubin 0.5 mg/dL (0.2-1.0); Total Protein 8.9 g/dL (6.4-8.9); eGFR CKD-EPI 28.3 (>60)
[2023-06-12 13:52] LABS: High Sens Troponin Baseline 9 pg/mL (<20)
[2023-06-12 13:57] LABS: ABS Lymphocytes 0.8 10^3/uL (1.0-4.8); ABS Monocytes 0.7 10^3/uL (0.0-1.1); ABS Nucleated RBC 0.01 10^3/ul; Lymphocyte % 3.4 %
[2023-06-12 14:00] LABS: TSH Ultra Thyroid Stim Horm 1.38 mcIU/mL (0.34-5.60)
[2023-06-12 15:09] LABS: Potassium Redraw 3.4 mmol/L (3.5-5.0)
[2023-06-12] MEDS ORDERED: Thiamine 100 MG/ML 2 ml VIAL (200 mg) IM ONE (17:04)
[2023-06-12] MEDS: metroNIDAZOLE IV 500 MG/100ML 500 MG/100 ML BAG IVPB ONE (17:26)
[2023-06-12] MEDS: cefTRIAXone 1 gm/50 mL D5W 1 GM/50 ML BAG IV ONE (17:30)
[2023-06-12 17:41] LABS: Phosphorus 4.3 mg/dL (2.5-5.0)
[2023-06-12] MEDS: Lactated Ringers 1000 ml BAG 1,000 ML IV ONE (18:02)
[2023-06-12] MEDS: Thiamine IV 100 MG in NS 0.9% 50 ML Q24H IV ONE (18:07)
[2023-06-12 18:50] LABS: Calcium 9.2 mg/dL (8.6-10.3); Creatinine, Serum 1.98 mg/dL (0.67-1.17); Potassium 3.1 mmol/L (3.5-5.0); eGFR CKD-EPI 37.5 (>60)
[2023-06-12] MEDS: LORazepam 2 mg VIAL 1 ml IV PUSH SCH (19:07)
[2023-06-12] MEDS: Thiamine 100 MG/ML 2 ml VIAL 100 MG, Folic Acid IV 1 MG, Multiple Vitamin IV ADULT 10 M... IV ONE (19:47)
[2023-06-12] MEDS: Lidocaine PATCH 5% PATCH TRANSDERM SCH (19:56)
[2023-06-12] MEDS: Acetaminophen IV 1 GM/100ML 1,000 MG/100 ML BAG IV ONE (19:59)
[2023-06-12] MEDS: KCL 20 MEQ/100 ML IVPREMIX 20 MEQ/100 ML BAG IV SCH (20:04)
[2023-06-12] MEDS: Enoxaparin 30 MG/0.3 ML SYR SUBCUT SCH (21:01)
[2023-06-12 21:28] LABS: Urine Appearance Turbid; Urine Bilirubin Negative (Negative); Urine Blood Trace (Negative); Urine Color Yellow; Urine Glucose Trace (Negative); Urine Ketones Negative (Negative); Urine Nitrite Negative (Negative); Urine Protein 1+ (>=30 mg/dL) (Negative); Urine Specific Gravity 1.025 (1.002-1.030); Urine Urobilinogen Negative (Negative)
[2023-06-12 21:38] LABS: Urine Benzodiazepine Screen None Detected (None Detect); Urine Cannabinoids Screen Presumptive Positive (None Detect); Urine Opiates Screen None Detected (None Detect)
[2023-06-12 21:50] LABS: Urine Bacteria Absent /HPF (Absent); Urine Red Blood Cell Absent /HPF (0-Trace); Urine Sperm Present /HPF (Absent); Urine White Blood Cell Absent /HPF (0-Trace)
[2023-06-13] MEDS ORDERED: metroNIDAZOLE IV 500 MG/100ML 500 MG/100 ML BAG IVPB SCH (01:30)
[2023-06-13] MEDS: metroNIDAZOLE IV 500 MG/100ML 500 MG/100 ML BAG IVPB SCH ×2 (01:32→14:23)
[2023-06-13] MEDS: Ondansetron 4 mg VIAL 2 MG/ML 2 ml VIAL IV ONE (04:34)
[2023-06-13 06:40] LABS: Hematocrit 37.9 % (38-53); Hemoglobin 12.8 g/dL (13.2-16.3); Mean Corpuscular Hemoglobin 31.1 pg (27-33); Mean Corpuscular Hgb Conc 33.7 g/dL (31-36); Mean Corpuscular Volume 92.2 fL (80-97); Platelet Count 574 10^3/uL (150-450); Red Blood Count 4.11 10^6/uL (4.06-5.63); White Blood Count 23.5 10^3/uL (3.6-10.2)
[2023-06-13 06:49] LABS: Calcium 8.9 mg/dL (8.6-10.3); Creatinine, Serum 1.06 mg/dL (0.67-1.17); Magnesium 2.3 mg/dL (1.9-2.7); Potassium 3.1 mmol/L (3.5-5.0); eGFR CKD-EPI 79.3 (>60)
[2023-06-13] MEDS: D5NS 0.9% 1000 ml BAG 1,000 ML IV SCH (09:03)
[2023-06-13] MEDS: KCL 20 MEQ/100 ML IVPREMIX 20 MEQ/100 ML BAG IV SCH (09:03)
[2023-06-13] MEDS: Morphine 2 MG/ML SYRINGE IV PRN (09:19)
[2023-06-13 09:35] LABS: ABS Lymphocytes 1.2 10^3/uL (1.0-4.8); ABS Monocytes 0.6 10^3/uL (0.0-1.1); ABS Neutrophils 21.7 10^3/uL (1.5-7.6); Lymphocyte % 5.3 %
[2023-06-13] MEDS ORDERED: TPN 24 HR with Dextrose 50% Water 500 ML, Amino Acid Infusion 10% 850 ML, Sterile Water... CENT\\PICC SCH (17:00)
[2023-06-13] MEDS: PPN (PERIPHERAL) 24 HR with D10W 1000 ml BAG 1,000 ML, Amino Acid Infusion 10% 850 ML, ... IV SCH (17:38)
[2023-06-13] MEDS: cefTRIAXone 1 gm/50 mL D5W 1 GM/50 ML BAG IV SCH (17:41)
[2023-06-14] MEDS: Benzocaine/Menthol LOZ MT PRN (03:06)
[2023-06-14 08:53] LABS: ABS Lymphocytes 1.6 10^3/uL (1.0-4.8); ABS Monocytes 0.9 10^3/uL (0.0-1.1); ABS Neutrophils 16.5 10^3/uL (1.5-7.6); Eosinophil % 0.2 %; Hematocrit 36.3 % (38-53); Hemoglobin 12.3 g/dL (13.2-16.3); Lymphocyte % 8.4 %; Mean Corpuscular Hemoglobin 30.9 pg (27-33); Mean Corpuscular Hgb Conc 33.9 g/dL (31-36); Mean Corpuscular Volume 91.3 fL (80-97); Mean Platelet Volume 7.4 fL (7.5-11.2); Platelet Count 563 10^3/uL (150-450); Red Blood Count 3.98 10^6/uL (4.06-5.63); Red Cell Distribution Width 13.4 % (12-17); White Blood Count 19.1 10^3/uL (3.6-10.2)
[2023-06-14 09:09] LABS: Albumin 2.7 g/dL (3.2-5.2); Albumin/Globulin Ratio 0.6 (1-3); Calcium 9.8 mg/dL (8.6-10.3); Creatinine, Serum 0.64 mg/dL (0.67-1.17); Globulin 4.9 g/dL (2-4); Phosphorus 1.2 mg/dL (2.5-5.0); Potassium 3.6 mmol/L (3.5-5.0); Total Bilirubin 0.3 mg/dL (0.2-1.0); Total Protein 7.6 g/dL (6.4-8.9)
[2023-06-14] MEDS ORDERED: Potassium Phosphate IV 15 MMOL in NS 0.9% 250 ml 250 ML IVPB SCH (10:00)
[2023-06-14] MEDS: Potassium Phosphate IV 20 MMOL in NS 0.9% 250 ml 250 ML IVPB SCH (12:03)
[2023-06-14] MEDS ORDERED: TPN 24 HR with Dextrose 50% Water 500 ML, Amino Acid Infusion 10% 850 ML, Sterile Water... CENT\\PICC SCH (17:00)
[2023-06-14] MEDS: TPN 24 HR with Dextrose 50% Water 500 ML, Amino Acid Infusion 10% 850 ML, Sterile Water... CENT\\PICC SCH (17:07)
[2023-06-14] MEDS: metroNIDAZOLE IV 500 MG/100ML 500 MG/100 ML BAG IVPB SCH (18:58)
[2023-06-15 08:06] LABS: ABS Lymphocytes 1.6 10^3/uL (1.0-4.8); ABS Monocytes 0.9 10^3/uL (0.0-1.1); ABS Neutrophils 12.7 10^3/uL (1.5-7.6); Eosinophil % 0.2 %; Hematocrit 37.7 % (38-53); Hemoglobin 12.2 g/dL (13.2-16.3); Lymphocyte % 10.4 %; Mean Corpuscular Hgb Conc 32.4 g/dL (31-36); Mean Corpuscular Volume 101.9 fL (80-97); Mean Platelet Volume 7.8 fL (7.5-11.2); Platelet Count 511 10^3/uL (150-450); Red Cell Distribution Width 15.1 % (12-17); White Blood Count 15.2 10^3/uL (3.6-10.2)
[2023-06-15 08:46] LABS: Anion Gap 2 mmol/L (2-16); Blood Urea Nitrogen 17 mg/dL (6-24); CO2 Carbon Dioxide 21 mmol/L (22-32); Calcium 8.8 mg/dL (8.6-10.3); Chloride 100 mmol/L (101-111); Creatinine, Serum 0.62 mg/dL (0.67-1.17); Sodium 123 mmol/L (135-145); eGFR CKD-EPI 108.1 (>60)
[2023-06-15 08:48] LABS: Albumin 2.4 g/dL (3.2-5.2); Albumin/Globulin Ratio 0.6 (1-3); Alkaline Phosphatase 97 U/L (35-149); Anion Gap 3 mmol/L (2-16); Blood Urea Nitrogen 17 mg/dL (6-24); CO2 Carbon Dioxide 21 mmol/L (22-32); Calcium 9.1 mg/dL (8.6-10.3); Chloride 100 mmol/L (101-111); Cholesterol 68 mg/dL; Creatinine, Serum 0.63 mg/dL (0.67-1.17); Sodium 124 mmol/L (135-145); Total Bilirubin < 0.1 mg/dL (0.2-1.0); Total Protein 6.4 g/dL (6.4-8.9); Triglycerides 741 mg/dL; eGFR CKD-EPI 107.5 (>60)
[2023-06-15 09:05] LABS: Glucose 1244 mg/dL (70-100); Prealbumin < 3 mg/dL (18-38)
[2023-06-15 09:05] LABS: Glucose 1426 mg/dL (70-100)
[2023-06-15] MEDS ORDERED: Dextrose 50% Syringe 50 ml 25 GM/50 ML SYRINGE IV PUSH PRN (09:15)
[2023-06-15 09:30] LABS: ALT 9 U/L (7-52)
[2023-06-15 10:33] LABS: Calcium 9.5 mg/dL (8.6-10.3); Creatinine, Serum 0.51 mg/dL (0.67-1.17); Magnesium 1.5 mg/dL (1.9-2.7); Phosphorus 1.8 mg/dL (2.5-5.0); Potassium 3.7 mmol/L (3.5-5.0); eGFR CKD-EPI 114.6 (>60)
[2023-06-15] MEDS: Magnesium Sulf 4 GM/100 ML IV 4,000 MG/100 ML BAG IVPB ONE (12:43)
[2023-06-15] MEDS: TPN 24 HR with Dextrose 50% Water 500 ML, Amino Acid Infusion 10% 850 ML, Sterile Water... CENT\\PICC SCH (17:04)
[2023-06-16 06:06] LABS: ABS Eosinophils 0.1 10^3/uL (0.0-0.5); ABS Lymphocytes 2.1 10^3/uL (1.0-4.8); ABS Monocytes 1.1 10^3/uL (0.0-1.1); ABS Neutrophils 11.1 10^3/uL (1.5-7.6); ABS Nucleated RBC 0.01 10^3/ul; Eosinophil % 0.4 %; Hematocrit 36.7 % (38-53); Hemoglobin 12.4 g/dL (13.2-16.3); Lymphocyte % 14.7 %; Mean Corpuscular Hgb Conc 33.8 g/dL (31-36); Mean Corpuscular Volume 91.8 fL (80-97); Mean Platelet Volume 7.7 fL (7.5-11.2); Nucleated Red Blood Cells % 0.1 %/100WBC (0.0-0.8); Platelet Count 509 10^3/uL (150-450); Red Cell Distribution Width 13.4 % (12-17); White Blood Count 14.4 10^3/uL (3.6-10.2)
[2023-06-16 06:19] LABS: Magnesium 1.8 mg/dL (1.9-2.7); Phosphorus 2.4 mg/dL (2.5-5.0)
[2023-06-16] MEDS: Magnesium Sulfate 2 gm BAG 2 GM/50 ML BAG IVPB ONE (10:41)
[2023-06-17 05:33] LABS: ABS Eosinophils 0.1 10^3/uL (0.0-0.5); ABS Lymphocytes 2.5 10^3/uL (1.0-4.8); ABS Monocytes 1.4 10^3/uL (0.0-1.1); ABS Nucleated RBC 0.02 10^3/ul; Eosinophil % 0.9 %; Hematocrit 36.4 % (38-53); Hemoglobin 12.3 g/dL (13.2-16.3); Lymphocyte % 17.5 %; Mean Corpuscular Hemoglobin 30.9 pg (27-33); Mean Corpuscular Hgb Conc 33.8 g/dL (31-36); Mean Corpuscular Volume 91.6 fL (80-97); Mean Platelet Volume 7.3 fL (7.5-11.2); Nucleated Red Blood Cells % 0.2 %/100WBC (0.0-0.8); Platelet Count 497 10^3/uL (150-450); Red Blood Count 3.97 10^6/uL (4.06-5.63); Red Cell Distribution Width 13.6 % (12-17)
[2023-06-17 05:50] LABS: Calcium 8.8 mg/dL (8.6-10.3); Creatinine, Serum 0.51 mg/dL (0.67-1.17); Magnesium 1.8 mg/dL (1.9-2.7); Phosphorus 2.6 mg/dL (2.5-5.0); Potassium 3.8 mmol/L (3.5-5.0); eGFR CKD-EPI 114.6 (>60)
[2023-06-17 09:39] LABS: Albumin 2.3 g/dL (3.2-5.2)
[2023-06-17] MEDS: Magnesium Sulfate 2 gm BAG 2 GM/50 ML BAG IVPB ONE (10:48)
[2023-06-17] MEDS: TPN 24 HR with Dextrose 50% Water 500 ML, Amino Acid Infusion 10% 850 ML, Sterile Water... CENT\\PICC SCH (17:09)
[2023-06-18 06:29] LABS: ABS Eosinophils 0.1 10^3/uL (0.0-0.5); ABS Lymphocytes 2.8 10^3/uL (1.0-4.8); ABS Monocytes 1.3 10^3/uL (0.0-1.1); ABS Neutrophils 8.8 10^3/uL (1.5-7.6); Eosinophil % 0.9 %; Hematocrit 34.7 % (38-53); Hemoglobin 11.6 g/dL (13.2-16.3); Lymphocyte % 21.2 %; Mean Corpuscular Hemoglobin 30.9 pg (27-33); Mean Corpuscular Hgb Conc 33.4 g/dL (31-36); Mean Corpuscular Volume 92.4 fL (80-97); Mean Platelet Volume 7.3 fL (7.5-11.2); Platelet Count 450 10^3/uL (150-450); Red Blood Count 3.76 10^6/uL (4.06-5.63); Red Cell Distribution Width 13.6 % (12-17); White Blood Count 13.1 10^3/uL (3.6-10.2)
[2023-06-18 06:40] LABS: Calcium 7.3 mg/dL (8.6-10.3); Creatinine, Serum 0.49 mg/dL (0.67-1.17); Magnesium 1.3 mg/dL (1.9-2.7); Potassium 3.5 mmol/L (3.5-5.0)
[2023-06-18] MEDS: Magnesium Sulf 4 GM/100 ML IV 4,000 MG/100 ML BAG IVPB ONE (08:29)
[2023-06-18] MEDS: Potassium Chlor 20 meq TAB.ER PO ONE (08:35)
[2023-06-18] MEDS: TPN 24 HR with Dextrose 50% Water 500 ML, Amino Acid Infusion 10% 850 ML, Sterile Water... CENT\\PICC SCH (18:52)
[2023-06-18] MEDS: Saline NASAL SPRAY 0.65% BTL BOTH NARES PRN (20:49)
[2023-06-19 05:50] LABS: Albumin 2.2 g/dL (3.2-5.2); Albumin/Globulin Ratio 0.5 (1-3); Calcium 8.1 mg/dL (8.6-10.3); Creatinine, Serum 0.51 mg/dL (0.67-1.17); Globulin 4.2 g/dL (2-4); Magnesium 1.9 mg/dL (1.9-2.7); Phosphorus 2.8 mg/dL (2.5-5.0); Potassium 4.7 mmol/L (3.5-5.0); Total Bilirubin 0.2 mg/dL (0.2-1.0); Total Protein 6.4 g/dL (6.4-8.9); eGFR CKD-EPI 114.6 (>60)
[2023-06-19] MEDS: Magnesium Sulfate IV 1GM/100ML 1 GM/100 ML BAG IV ONE (09:54)
[2023-06-19] MEDS: cefTRIAXone 1 gm/50 mL D5W 1 GM/50 ML BAG IV SCH (17:39)
[2023-06-20] MEDS: Morphine 2 MG/ML SYRINGE IV ONE (01:11)
[2023-06-20 06:39] LABS: Albumin 2.1 g/dL (3.2-5.2); Albumin/Globulin Ratio 0.5 (1-3); Calcium 8.1 mg/dL (8.6-10.3); Creatinine, Serum 0.5 mg/dL (0.67-1.17); Globulin 4.4 g/dL (2-4); Magnesium 1.8 mg/dL (1.9-2.7); Phosphorus 3.1 mg/dL (2.5-5.0); Potassium 4.9 mmol/L (3.5-5.0); Total Bilirubin 0.2 mg/dL (0.2-1.0); Total Protein 6.5 g/dL (6.4-8.9); eGFR CKD-EPI 115.3 (>60)
[2023-06-20] MEDS: Dextrose 50% Syringe 50 ml 25 GM/50 ML SYRINGE IV PUSH PRN (08:02)
[2023-06-20] MEDS: Magnesium Sulfate 2 gm BAG 2 GM/50 ML BAG IVPB ONE (08:15)
[2023-06-20] MEDS: Morphine 2 MG/ML SYRINGE IV PRN (12:57)
[2023-06-20] MEDS: Midazolam 2 mg/2 ml VIAL 1 mg/ml 2 ml VIAL (2 mg) ONE (14:54)
[2023-06-20] MEDS: Lidocaine 2% JELLY 6 ML Topical TOPICAL ONE (15:43)
[2023-06-20 15:52] LABS: Albumin 2.1 g/dL (3.2-5.2); Albumin/Globulin Ratio 0.5 (1-3); Calcium 8.2 mg/dL (8.6-10.3); Creatinine, Serum 0.44 mg/dL (0.67-1.17); Globulin 4.3 g/dL (2-4); Magnesium 1.8 mg/dL (1.9-2.7); Phosphorus 3.1 mg/dL (2.5-5.0); Potassium 4.9 mmol/L (3.5-5.0); Total Bilirubin 0.2 mg/dL (0.2-1.0); Total Protein 6.4 g/dL (6.4-8.9); eGFR CKD-EPI 119.9 (>60)
[2023-06-21 06:25] LABS: Albumin 2.4 g/dL (3.2-5.2); Albumin/Globulin Ratio 0.5 (1-3); Calcium 8.3 mg/dL (8.6-10.3); Creatinine, Serum 0.44 mg/dL (0.67-1.17); Globulin 4.7 g/dL (2-4); Magnesium 1.9 mg/dL (1.9-2.7); Phosphorus 3.3 mg/dL (2.5-5.0); Total Bilirubin 0.3 mg/dL (0.2-1.0); Total Protein 7.1 g/dL (6.4-8.9); eGFR CKD-EPI 119.9 (>60)
[2023-06-21] MEDS ORDERED: Lidocaine 2% PF 5 ML VIAL ONE (11:16)
[2023-06-21] MEDS ORDERED: fentaNYL 100 mcg/2 ml 50 MCG/ML VIAL ONE (11:16)
[2023-06-21] MEDS ORDERED: Propofol 10 MG/ML 20 ML BTL ONE (11:16)
[2023-06-21] MEDS ORDERED: Dexmedetomidine 200 mcg/2 ml 2 ml VIAL (200 mcg) ONE ×2 (11:24→11:47)
[2023-06-21] MEDS ORDERED: Glycopyrrolate IV 0.2 MG/ML 1 ML VIAL ONE ×2 (11:27→12:07)
[2023-06-21] MEDS ORDERED: Benzocaine/Butamben/Tetracain (CETACAINE - SINGLE USE) 5 gm TOPICAL ONE (11:33)
[2023-06-21] MEDS ORDERED: Naloxone 0.4 mg VIAL 0.4 mg/ml 1 ml VIAL IV PRN (12:49)
[2023-06-21] MEDS: Morphine 2 MG/ML SYRINGE IV ONE (14:06)
[2023-06-21] MEDS: TPN 24 HR with Dextrose 50% Water 500 ML, Amino Acid Infusion 10% 850 ML, Sterile Water... CENT\\PICC SCH (17:09)
[2023-06-22 06:09] LABS: Calcium 8.3 mg/dL (8.6-10.3); Creatinine, Serum 0.47 mg/dL (0.67-1.17); Magnesium 1.7 mg/dL (1.9-2.7); Phosphorus 3.3 mg/dL (2.5-5.0); Potassium 4.8 mmol/L (3.5-5.0); eGFR CKD-EPI 117.5 (>60)
[2023-06-22] MEDS: Magnesium Sulfate 2 gm BAG 2 GM/50 ML BAG IVPB ONE (08:30)
[2023-06-22] MEDS: TPN 24 HR with Dextrose 50% Water 500 ML, Amino Acid Infusion 10% 850 ML, Sterile Water... CENT\\PICC SCH (16:58)
[2023-06-23] MEDS: TPN 24 HR with Dextrose 50% Water 500 ML, Amino Acid Infusion 10% 850 ML, Sterile Water... CENT\\PICC SCH (17:31)
[2023-06-24 08:04] LABS: Albumin 2.5 g/dL (3.2-5.2); Albumin/Globulin Ratio 0.5 (1-3); Creatinine, Serum 0.49 mg/dL (0.67-1.17); Globulin 4.7 g/dL (2-4); Magnesium 1.7 mg/dL (1.9-2.7); Phosphorus 2.8 mg/dL (2.5-5.0); Potassium 4.1 mmol/L (3.5-5.0); Total Bilirubin 0.2 mg/dL (0.2-1.0); Total Protein 7.2 g/dL (6.4-8.9)
[2023-06-24] MEDS: Magnesium Sulfate 2 gm BAG 2 GM/50 ML BAG IVPB ONE (09:02)
[2023-06-25 06:42] LABS: Calcium 8.3 mg/dL (8.6-10.3); Creatinine, Serum 0.51 mg/dL (0.67-1.17); Magnesium 1.9 mg/dL (1.9-2.7); Phosphorus 3.3 mg/dL (2.5-5.0); Potassium 4.3 mmol/L (3.5-5.0); eGFR CKD-EPI 114.6 (>60)
[2023-06-26 05:59] LABS: Albumin 2.7 g/dL (3.2-5.2); Albumin/Globulin Ratio 0.6 (1-3); Calcium 8.6 mg/dL (8.6-10.3); Creatinine, Serum 0.55 mg/dL (0.67-1.17); Globulin 4.9 g/dL (2-4); Magnesium 1.8 mg/dL (1.9-2.7); Phosphorus 3.2 mg/dL (2.5-5.0); Potassium 4.2 mmol/L (3.5-5.0); Total Bilirubin 0.3 mg/dL (0.2-1.0); Total Protein 7.6 g/dL (6.4-8.9); eGFR CKD-EPI 112.1 (>60)
[2023-06-26] MEDS: Magnesium Sulfate 2 gm BAG 2 GM/50 ML BAG IVPB ONE (09:59)
[2023-06-26] MEDS: Glycerin ADULT 2.4 gm SUPP PR ONE (12:01)
[2023-06-27 06:43] LABS: Albumin 2.6 g/dL (3.2-5.2); Albumin/Globulin Ratio 0.5 (1-3); Calcium 8.5 mg/dL (8.6-10.3); Creatinine, Serum 0.47 mg/dL (0.67-1.17); Globulin 4.8 g/dL (2-4); Magnesium 1.8 mg/dL (1.9-2.7); Potassium 4.1 mmol/L (3.5-5.0); Total Bilirubin 0.3 mg/dL (0.2-1.0); Total Protein 7.4 g/dL (6.4-8.9); eGFR CKD-EPI 117.5 (>60)
[2023-06-27] MEDS: Magnesium Sulfate 2 gm BAG 2 GM/50 ML BAG IVPB ONE (09:09)
[2023-06-27] MEDS: Magnesium Sulfate IV 1GM/100ML 1 GM/100 ML BAG IV ONE (10:11)
[2023-06-28 06:29] LABS: Hematocrit 33.6 % (38-53); Hemoglobin 11.4 g/dL (13.2-16.3); Mean Corpuscular Hemoglobin 31.2 pg (27-33); Mean Corpuscular Hgb Conc 33.9 g/dL (31-36); Mean Corpuscular Volume 91.9 fL (80-97); Mean Platelet Volume 8.1 fL (7.5-11.2); Platelet Count 472 10^3/uL (150-450); Red Blood Count 3.66 10^6/uL (4.06-5.63); Red Cell Distribution Width 13.9 % (12-17); White Blood Count 7.6 10^3/uL (3.6-10.2)
[2023-06-28 07:15] LABS: Albumin 2.6 g/dL (3.2-5.2); Albumin/Globulin Ratio 0.6 (1-3); Calcium 8.3 mg/dL (8.6-10.3); Creatinine, Serum 0.5 mg/dL (0.67-1.17); Globulin 4.5 g/dL (2-4); Magnesium 1.8 mg/dL (1.9-2.7); Phosphorus 3.1 mg/dL (2.5-5.0); Potassium 4.1 mmol/L (3.5-5.0); Total Bilirubin 0.3 mg/dL (0.2-1.0); Total Protein 7.1 g/dL (6.4-8.9); eGFR CKD-EPI 115.3 (>60)
[2023-06-28] MEDS: Magnesium Sulfate 2 gm BAG 2 GM/50 ML BAG IVPB ONE (07:49)
[2023-06-28 09:07] LABS: ABS Basophils 0.1 10^3/uL (0.0-0.1); ABS Eosinophils 0.1 10^3/uL (0.0-0.5); ABS Lymphocytes 2.9 10^3/uL (1.0-4.8); ABS Neutrophils 3.5 10^3/uL (1.5-7.6); ABS Nucleated RBC 0.01 10^3/ul; Eosinophil % 1.5 %; Lymphocyte % 38.3 %; Nucleated Red Blood Cells % 0.2 %/100WBC (0.0-0.8)
[2023-06-28] MEDS: Magnesium Sulfate IV 1GM/100ML 1 GM/100 ML BAG IV ONE (09:19)
[2023-06-29] MEDS: Acetaminophen IV 1 GM/100ML 1,000 MG/100 ML BAG IV PRN (01:27)
[2023-06-29] MEDS: Dextran 70/Hypromellose Tears Eye Drops 15 ml BTL (for Artificials Tears) BOTH EYES PRN (02:11)
[2023-06-29] MEDS: Ondansetron 4 mg VIAL 2 MG/ML 2 ml VIAL IV ONE (04:13)
[2023-06-29 06:08] LABS: Hematocrit 32.8 % (38-53); Hemoglobin 10.9 g/dL (13.2-16.3); Mean Corpuscular Hemoglobin 30.7 pg (27-33); Mean Corpuscular Hgb Conc 33.4 g/dL (31-36); Platelet Count 438 10^3/uL (150-450); Red Blood Count 3.56 10^6/uL (4.06-5.63); Red Cell Distribution Width 13.9 % (12-17)
[2023-06-29 06:51] LABS: Calcium 8.2 mg/dL (8.6-10.3); Creatinine, Serum 0.47 mg/dL (0.67-1.17); Magnesium 1.9 mg/dL (1.9-2.7); eGFR CKD-EPI 117.5 (>60)
[2023-06-29] MEDS ORDERED: Succinylcholine 200 mg VIAL 20 mg/ml 10 ml VIAL (200 mg) ONE (12:03)
[2023-06-29] MEDS ORDERED: Lidocaine 2% PF 5 ML VIAL ONE (12:04)
[2023-06-29] MEDS ORDERED: Propofol 10 MG/ML 20 ML BTL ONE (12:04)
[2023-06-29] MEDS ORDERED: Rocuronium 50 mg VIAL 10 mg/ml 5 ml VIAL (50 mg) ONE ×2 (12:05→12:10)
[2023-06-29] MEDS ORDERED: Midazolam 2 mg/2 ml VIAL 1 mg/ml 2 ml VIAL (2 mg) ONE (12:11)
[2023-06-29] MEDS ORDERED: fentaNYL 100 mcg/2 ml 50 MCG/ML VIAL ONE (12:11)
[2023-06-29] MEDS ORDERED: fentaNYL 100 mcg/2 ml 50 MCG/ML VIAL IV PRN (12:29)
[2023-06-29] MEDS ORDERED: Morphine 4 MG/ML VIAL (1 ml) IV PRN (12:29)
[2023-06-29] MEDS ORDERED: Naloxone 0.4 mg VIAL 0.4 mg/ml 1 ml VIAL IV PRN (12:29)
[2023-06-29] MEDS ORDERED: Sterile Water for Inj 10 ML ONE (14:01)
[2023-06-29] MEDS ORDERED: Ondansetron 4 mg VIAL 2 MG/ML 2 ml VIAL ONE (14:10)
[2023-06-29] MEDS: TPN 24 HR with Dextrose 40% Water 625 ML, Amino Acid Infusion 10% 850 ML, Sterile Water... CENT\\PICC SCH (17:12)
[2023-06-29] MEDS: Glycerin ADULT 2.4 gm SUPP PR PRN (19:38)
[2023-06-29] MEDS: Glycerin ADULT 2.4 gm SUPP ONE (20:29)
[2023-06-30 06:02] LABS: Calcium 8.3 mg/dL (8.6-10.3); Creatinine, Serum 0.46 mg/dL (0.67-1.17); Magnesium 1.6 mg/dL (1.9-2.7); Potassium 4.2 mmol/L (3.5-5.0); eGFR CKD-EPI 118.3 (>60)
[2023-06-30 06:15] LABS: Hematocrit 33.4 % (38-53); Hemoglobin 11.3 g/dL (13.2-16.3); Mean Corpuscular Hemoglobin 31.1 pg (27-33); Mean Corpuscular Hgb Conc 33.9 g/dL (31-36); Mean Corpuscular Volume 91.9 fL (80-97); Mean Platelet Volume 8.5 fL (7.5-11.2); Platelet Count 492 10^3/uL (150-450); Red Blood Count 3.63 10^6/uL (4.06-5.63); Red Cell Distribution Width 13.9 % (12-17); White Blood Count 6.1 10^3/uL (3.6-10.2)
[2023-06-30] MEDS: Enoxaparin 30 MG/0.3 ML SYR SUBCUT SCH (08:35)
[2023-06-30] MEDS: Magnesium Sulfate 2 gm BAG 2 GM/50 ML BAG IVPB ONE (09:00)
[2023-06-30] MEDS: Magnesium Sulfate IV 1GM/100ML 1 GM/100 ML BAG IV ONE (10:31)
[2023-07-01 04:33] LABS: Hematocrit 33.3 % (38-53); Hemoglobin 11.3 g/dL (13.2-16.3); Mean Corpuscular Hemoglobin 30.9 pg (27-33); Mean Corpuscular Volume 90.8 fL (80-97); Mean Platelet Volume 7.9 fL (7.5-11.2); Platelet Count 467 10^3/uL (150-450); Red Blood Count 3.67 10^6/uL (4.06-5.63); Red Cell Distribution Width 13.7 % (12-17)
[2023-07-01 05:08] LABS: Calcium 8.1 mg/dL (8.6-10.3); Creatinine, Serum 0.47 mg/dL (0.67-1.17); Magnesium 1.7 mg/dL (1.9-2.7); Potassium 4.4 mmol/L (3.5-5.0); eGFR CKD-EPI 117.5 (>60)
[2023-07-01] MEDS: Magnesium Sulfate 2 gm BAG 2 GM/50 ML BAG IVPB ONE (10:48)
[2023-07-01] MEDS: Magnesium Sulfate IV 1GM/100ML 1 GM/100 ML BAG IV ONE (12:01)
[2023-07-02] MEDS: Lidocaine 4% GEL 10 GM TUBE TOPICAL PRN (00:57)
[2023-07-02 06:48] LABS: Creatinine, Serum 0.48 mg/dL (0.67-1.17); Magnesium 1.7 mg/dL (1.9-2.7); Potassium 3.9 mmol/L (3.5-5.0); eGFR CKD-EPI 116.8 (>60)
[2023-07-02 07:03] LABS: ABS Basophils 0.1 10^3/uL (0.0-0.1); ABS Eosinophils 0.2 10^3/uL (0.0-0.5); ABS Lymphocytes 2.4 10^3/uL (1.0-4.8); ABS Neutrophils 2.3 10^3/uL (1.5-7.6); ABS Nucleated RBC 0.01 10^3/ul; Eosinophil % 3.2 %; Hematocrit 33.7 % (38-53); Hemoglobin 11.3 g/dL (13.2-16.3); Lymphocyte % 40.2 %; Mean Corpuscular Hemoglobin 30.7 pg (27-33); Mean Corpuscular Hgb Conc 33.4 g/dL (31-36); Mean Platelet Volume 8.1 fL (7.5-11.2); Nucleated Red Blood Cells % 0.2 %/100WBC (0.0-0.8); Platelet Count 486 10^3/uL (150-450); Red Blood Count 3.66 10^6/uL (4.06-5.63); Red Cell Distribution Width 13.9 % (12-17); White Blood Count 5.9 10^3/uL (3.6-10.2)
[2023-07-02] MEDS: Pantoprazole VIAL 40 MG VIAL IV SCH (09:55)
[2023-07-02] MEDS: Magnesium Sulfate 2 gm BAG 2 GM/50 ML BAG IVPB ONE (09:56)
[2023-07-02] MEDS: Magnesium Sulfate IV 1GM/100ML 1 GM/100 ML BAG IV ONE (11:22)
[2023-07-03 06:55] LABS: Hemoglobin 10.8 g/dL (13.2-16.3); Mean Corpuscular Hemoglobin 31.2 pg (27-33); Mean Corpuscular Hgb Conc 33.8 g/dL (31-36); Mean Corpuscular Volume 92.3 fL (80-97); Mean Platelet Volume 8.4 fL (7.5-11.2); Platelet Count 424 10^3/uL (150-450); Red Blood Count 3.47 10^6/uL (4.06-5.63); Red Cell Distribution Width 13.8 % (12-17)
[2023-07-03 07:00] LABS: Albumin 2.4 g/dL (3.2-5.2); Albumin/Globulin Ratio 0.6 (1-3); Calcium 7.9 mg/dL (8.6-10.3); Creatinine, Serum 0.48 mg/dL (0.67-1.17); Globulin 3.9 g/dL (2-4); Magnesium 1.5 mg/dL (1.9-2.7); Phosphorus 2.6 mg/dL (2.5-5.0); Potassium 3.6 mmol/L (3.5-5.0); Total Bilirubin 0.1 mg/dL (0.2-1.0); Total Protein 6.3 g/dL (6.4-8.9); eGFR CKD-EPI 116.8 (>60)
[2023-07-03] MEDS ORDERED: Pantoprazole VIAL 40 MG VIAL IV PRN (08:57)
[2023-07-03] MEDS: Magnesium Sulf 4 GM/100 ML IV 4,000 MG/100 ML BAG IVPB ONE (09:18)
[2023-07-03 21:38] LABS: HIV 4th Generation Preliminary Reactive (Nonreactive)
[2023-07-03] MEDS: Morphine 2 MG/ML SYRINGE IV PRN (22:22)
[2023-07-04] MEDS: guaiFENesin 100 mg/5 ml LIQ unit dose cup PO PRN (00:35)
[2023-07-04 05:48] LABS: Hemoglobin 10.7 g/dL (13.2-16.3); Mean Corpuscular Hemoglobin 31.4 pg (27-33); Mean Corpuscular Hgb Conc 34.6 g/dL (31-36); Mean Corpuscular Volume 90.7 fL (80-97); Platelet Count 438 10^3/uL (150-450); Red Blood Count 3.42 10^6/uL (4.06-5.63); Red Cell Distribution Width 13.8 % (12-17); White Blood Count 5.7 10^3/uL (3.6-10.2)
[2023-07-04 06:13] LABS: Creatinine, Serum 0.48 mg/dL (0.67-1.17); Magnesium 1.6 mg/dL (1.9-2.7); Phosphorus 3.1 mg/dL (2.5-5.0); Potassium 4.1 mmol/L (3.5-5.0); eGFR CKD-EPI 116.8 (>60)
[2023-07-04] MEDS: Hemorrhoidal OINT 1 TUBE PR PRN (08:03)
[2023-07-04] MEDS: Magnesium Sulfate 2 gm BAG 2 GM/50 ML BAG IVPB ONE (08:03)
[2023-07-04 12:16] LABS: Hepatitis B Surface Antigen Nonreactive (Nonreactive)
[2023-07-04 12:34] LABS: Hepatitis C Antibody Negative (Negative)
[2023-07-05 08:51] LABS: ABS Basophils 0.1 10^3/uL (0.0-0.1); ABS Eosinophils 0.2 10^3/uL (0.0-0.5); ABS Lymphocytes 2.6 10^3/uL (1.0-4.8); ABS Neutrophils 2.2 10^3/uL (1.5-7.6); Hematocrit 35.2 % (38-53); Lymphocyte % 42.2 %; Mean Corpuscular Volume 91.2 fL (80-97); Mean Platelet Volume 7.8 fL (7.5-11.2); Platelet Count 458 10^3/uL (150-450); Red Blood Count 3.86 10^6/uL (4.06-5.63); Red Cell Distribution Width 14.4 % (12-17); White Blood Count 6.2 10^3/uL (3.6-10.2)
[2023-07-05 09:20] LABS: Calcium 8.7 mg/dL (8.6-10.3); Creatinine, Serum 0.5 mg/dL (0.67-1.17); Magnesium 1.4 mg/dL (1.9-2.7); Potassium 4.3 mmol/L (3.5-5.0); eGFR CKD-EPI 115.3 (>60)
[2023-07-05] MEDS: Magnesium Sulfate 2 gm BAG 2 GM/50 ML BAG IVPB ONE (13:26)
[2023-07-05 14:00] LABS: TB1 Ag minus Nil Result -0.01 IU/mL
[2023-07-05 14:53] LABS: QuantiferonTb Gold Plus Result Negative (Negative)
[2023-07-05] MEDS: Magnesium Sulfate IV 1GM/100ML 1 GM/100 ML BAG IV ONE (15:04)
[2023-07-05] MEDS: hydrOXYzine LIQ ORALSYR 2 MG/ML PO SCH (15:06)
[2023-07-05 15:25] LABS: HIV-1 Ab Differentiation,P Negative (Negative); HIV-2 Ab Differentiation,P Negative (Negative)
[2023-07-05 17:33] LABS: % CD3 88 % (58-86); % CD4 46 % (32-64); % CD8 33 % (8-40); 4/8 H/S Ratio 1.4 (>=0.9); Absolute CD45 Count 2.78 thou/mcL (0.82-2.84); CD3 2464 cells/mcL (550-2202); CD4 1279 cells/mcL (365-1437); CD8 923 cells/mcL (80-846)
[2023-07-05] MEDS ORDERED: Lorazepam PYXIS KEY PRN ×2 (18:24→18:50)
[2023-07-05] MEDS: cefTRIAXone 1 gm/50 mL D5W 1 GM/50 ML BAG IV SCH ×2 (19:03→23:17)
[2023-07-05] MEDS ORDERED: LORazepam 2 mg VIAL 1 ml IV PUSH ONE (21:00)
[2023-07-05] MEDS ORDERED: Cefdinir SUSP ORALSYR 50 MG/ML (250 mg/5 ml) PO SCH (21:00)
[2023-07-05] MEDS: Morphine 4 MG/ML VIAL (1 ml) IV ONE (21:58)
[2023-07-05] MEDS: metroNIDAZOLE IV 500 MG/100ML 500 MG/100 ML BAG IVPB SCH (21:58)
[2023-07-05] MEDS: LORazepam 2 mg VIAL 1 ml IV PUSH ONE (21:58)
[2023-07-06] MEDS: LORazepam 2 mg VIAL 1 ml IV PUSH PRN (04:34)
[2023-07-06 05:40] LABS: Calcium 8.1 mg/dL (8.6-10.3); Creatinine, Serum 0.53 mg/dL (0.67-1.17); Magnesium 1.4 mg/dL (1.9-2.7); Potassium 3.9 mmol/L (3.5-5.0); eGFR CKD-EPI 113.3 (>60)
[2023-07-06 05:56] LABS: ABS Basophils 0.1 10^3/uL (0.0-0.1); ABS Eosinophils 0.2 10^3/uL (0.0-0.5); ABS Lymphocytes 2.7 10^3/uL (1.0-4.8); ABS Neutrophils 2.4 10^3/uL (1.5-7.6); ABS Nucleated RBC 0.01 10^3/ul; Eosinophil % 3.4 %; Hematocrit 32.7 % (38-53); Hemoglobin 10.9 g/dL (13.2-16.3); Lymphocyte % 41.9 %; Mean Corpuscular Hemoglobin 30.7 pg (27-33); Mean Corpuscular Hgb Conc 33.5 g/dL (31-36); Mean Corpuscular Volume 91.5 fL (80-97); Mean Platelet Volume 7.9 fL (7.5-11.2); Nucleated Red Blood Cells % 0.2 %/100WBC (0.0-0.8); Platelet Count 457 10^3/uL (150-450); Red Blood Count 3.57 10^6/uL (4.06-5.63); Red Cell Distribution Width 14.2 % (12-17); White Blood Count 6.3 10^3/uL (3.6-10.2)
[2023-07-06] MEDS ORDERED: Vancomycin per Pharmacy 1 EA NOTE FOLLOW UP SCH (07:00)
[2023-07-06] MEDS ORDERED: Acetaminophen IV 1 GM/100ML 1,000 MG/100 ML BAG IV PRN (07:25)
[2023-07-06] MEDS ORDERED: hydrOXYzine IM 50 MG/ML VIAL IM ONE (09:55)
[2023-07-06] MEDS: Cefepime 2 GM in Dextrose 2 GM/50 ML BAG IV SCH (10:37)
[2023-07-06 10:56] VITALS: BP 131/77
[2023-07-06] MEDS: Vancomycin 1,000 MG in NS 0.9% 250 ml 250 ML IVPB ONE (11:14)
[2023-07-06] MEDS: Magnesium Sulf 4 GM/100 ML IV 4,000 MG/100 ML BAG IVPB ONE (11:15)
[2023-07-06] MEDS ORDERED: Ibuprofen ADULT LIQ 600 MG/30 ML UDC PO PRN (12:18)
[2023-07-06] MEDS ORDERED: hydrOXYzine LIQ ORALSYR 2 MG/ML PO PRN (12:27)
[2023-07-06] MEDS ORDERED: Polyethylene Glycol 3350 17 GM PACKET PO PRN (12:29)
[2023-07-06] MEDS ORDERED: hydrOXYzine LIQ ORALSYR 2 MG/ML PO SCH (21:00)
[2023-07-06] MEDS ORDERED: Cefdinir SUSP ORALSYR 50 MG/ML (250 mg/5 ml) PO SCH (21:00)
[2023-07-10 10:04] LABS: HIV-1 RNA Undetected (Undetected); HIV-2 RNA Undetected (Undetected)
== END 2023-07-06 15:22 | disposition home or self-care (01) | DRG 853 ==
LOC: ED 12:01 → EDHOLD 17:01 → SUATTDRO 17:01 → MED 21:16 → MEDTELE 21:56 → MED 22:02
PROVIDERS: ADMIT Internal Medicine; ATTEND Internal Medicine
PROC: O.GIEGD (2023-06-21 12:50)